=== PATIENT | male | born 1950 | race Caucasian/White ===

== ENCOUNTER → 2020-01-28 | Outpatient (CLI) | payer OTHER ==
--- NOTE | 2020-02-01 06:31 | PE ---
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 TECHNIQUE: Following the intravenous administration of 11.63 mCi of F-18 FDG, whole body images are performed from the skull base to the midthigh. Images are reviewed on the computer in the coronal, a xial, and sagittal planes. Reconstructed rotating images are created on independent workstation and reviewed on the computer. A noncontrast CT is performed in conjunction with the PET scan. Dedicated PET/CT imaging of the neck is performed. SCAN: Subsequent Scan FINDINGS: SKULL BASE AND NECK: Hypermetabolic uptake on prior study at level of the vocal cords with soft tiss ue thickening is now not identified. There has been interval extensive neck surgery with resection of this area and numerous surgical clips submandibular region. Thyroid gland is now surgically absent. Tracheostomy tube now present below this level. No suspicious areas of new or residual abnormal hyper metabolic uptake. CHEST, MEDIASTINUM, AND HILAR REGION: There is however interval development of new large hypermetabol ic right invasive hilar mass axial image 93 measuring roughly 6.1 x 4.2 cm, max SUV is 6.65. There is some postobstructive atelectasis along the periphery. There is adjacent additional hypermetabolic 2.2 x 1.9 cm right paratracheal adenopathy.. There is add itional hypermetabolic right hilar lymph node measuring 2.7 x 2.6 cm axial image 101, max SUV is 4.72 . ABDOMEN AND PELVIS: Some faint multifocal subcentimeter areas of hypermetabolic uptake throughout the liver are suspicious for metastatic disease though CT correlates not clearly identified. For referen ce lateral left hepatic lobe punctate focus max SUV 3.58 on axial image 149. Largest lesion with some central calcifications lateral segment left hepatic lobe axial image 137 is favored benign as is elena tabolic and was present on prior study. Similar subcentimeter benign low dense lesion anterior liver axial image 146 noted. Normal excretion is seen. No additional areas of suspicious hypermetabolic uptake. OSSEOUS STRUCTURES: New Osseous metastatic disease with several new hypermetabolic foci, for referenc e right iliac lesion and left sacral lesion axial image 206 along with lytic focus L5 vertebra axial image 190. There is large hypermetabolic lesion L1 vertebra axial image 151, max SUV is 5.85. Few add itional scattered right rib lesions are felt present. OTHER CT: Coronary artery calcification and/or stents are identified. There is new tiny right pleural effusion. There are several thin-walled cysts scattered throughout both kidneys. There is retroaortic left kita l vein which is normal variant. There is ectatic and mild/moderate calcification in the abdominal aor ta. Sigmoid colonic diverticula. Scattered pelvic phleboliths. IMPRESSION: Successful surgical and radiation treatment of primary laryngeal neoplasm but interval de velopment of metastatic disease in the central right lung with thoracic adenopathy, new osseous metas tatic disease, and suspected new subcentimeter hepatic metastatic disease.
== END | disposition home or self-care (01) ==
LOC: RADPETMAIN 13:03
PROVIDERS: ATTEND Radiology Radiation Oncology
DX: C78.01 Secondary malignant neoplasm of right lung (principal); C79.51 Secondary malignant neoplasm of bone; C32.0 Malignant neoplasm of glottis; R59.0 Localized enlarged lymph nodes; Z92.3 Personal history of irradiation; Z98.890 Other specified postprocedural states
CPT/HCPCS: 78815; A9552

== ENCOUNTER → 2020-02-04 | Outpatient (CLI) | payer OTHER ==
--- NOTE | 2020-02-04 13:05 | MR ---
EXAMINATION TYPE: MR brain wo/w con DATE OF EXAM: 02/04/2020 COMPARISON: None HISTORY: Malignant neoplasm of glottis, head pain TECHNIQUE: Multiplanar, multisequence images of the brain and brainstem is performed without and with IV contras t, utilizing 7.5 mL intravenous Gadavist . FINDINGS: Diffusion weighted images demonstrate no evidence of a recent infarct or other diffusion ab normality. There is moderate generalized degenerative change. Areas of abnormal signal in the white m atter are nonspecific but most typical remote microvascular ischemia. There is a 5 mm nodular change involving the left frontal bone for which a CT scan is recommended. No intraparenchymal areas of enhancement suspicious for metastases. Midline structures demonstrate normal morphology. The craniocervical junction appears within normal limits. Post contrast images demonstrate no abnormal enhancement. The dural venous sinuses appear pa tent. Changes of chronic sinusitis noted. IMPRESSION: 1. No intracranial areas of metastases seen. Degenerative and nonspecific white matter changes most t ypical remote microvascular ischemia. 2. There is a 1 cm area of nodular prominence involving the left frontal bone which be correlated wit h CT of the brain with bone windows for further evaluation. Best noted on postcontrast T1 axial image 49.
== END | disposition home or self-care (01) ==
LOC: RADMRIMAIN 12:06
PROVIDERS: ATTEND Radiology Radiation Oncology
DX: G31.9 Degenerative disease of nervous system, unspecified (principal); G93.89 Other specified disorders of brain; I67.82 Cerebral ischemia; C32.0 Malignant neoplasm of glottis; Z92.3 Personal history of irradiation; Z97.8 Presence of other specified devices
CPT/HCPCS: 70553; A9585

== ENCOUNTER → 2020-05-27 | Outpatient (CLI) | payer OTHER ==
--- NOTE | 2020-05-29 11:53 | PE ---
EXAMINATION TYPE: PET CT fusion skull to thigh DATE OF EXAM: 05/27/2020 COMPARISON: Most recent PET CT January 28, 2020 and older studies. HISTORY: Head and neck cancer diagnosed June 2019 and lung cancer diagnosed January 2020 completed radiation treatment in February and chemotherapy in April. TECHNIQUE: Following the intravenous administration of 9.4 mCi of F-18 FDG, whole body images are pe rformed from the skull base to the midthigh. Images are reviewed on the computer in the coronal, axi al, and sagittal planes. Reconstructed rotating images are created on independent workstation and re viewed on the computer. A localization and attenuation correction CT is performed in conjunction wi th the PET scan. PET/CT imaging of the neck is performed. SCAN: Subsequent Scan FINDINGS: SKULL BASE AND NECK: No new areas of abnormal hypermetabolic uptake. Extensive surgical and post khushi atment change redemonstrated with tracheostomy tube inferiorly again seen. CHEST, MEDIASTINUM, AND HILAR REGION: Marked interval improvement in the hypermetabolic large invasiv e right hilar mass or neoplasm with some residual abnormal soft tissue surrounding right upper lobe b ronchus axial image 85, this area is currently ametabolic. Marked interval improvement in the right peritracheal/tracheobronchial lymph node measuring 1.0 x 0.8 cm current study image 83 versus 2.2 x 1.9 cm prior study. Lymph node currently ametabolic. Hypermet abolic right hilar lymph node on prior study less well seen, no residual hypermetabolic uptake. No new areas of abnormal hypermetabolic uptake. ABDOMEN AND PELVIS: No areas of abnormal hypermetabolic uptake. OSSEOUS STRUCTURES: No new areas of abnormal hypermetabolic uptake. Scattered sclerotic osseous metas tatic lesions redemonstrated greatest in the pelvis with interval progression in size and number of s clerotic lesions noted. OTHER CT: Coronary artery calcification and/or stents are redemonstrated. There are several thin-walled cysts scattered throughout both kidneys. There is retroaortic left kita l vein which is normal variant. There is ectatic and mild/moderate calcification in the abdominal aor ta. Stable low dense lesion lateral aspect left hepatic lobe presumed benign with central thin septat ion and calcification. Sigmoid colonic diverticula. Scattered pelvic phleboliths. IMPRESSION: No areas of abnormal hypermetabolic uptake on current study. Marked interval improvement in right hilar mass or neoplasm and thoracic adenopathy. Interval progression in osseous sclerotic me tastatic disease without abnormal hypermetabolic uptake is noted.
== END | disposition home or self-care (01) ==
LOC: RADPETMAIN 09:32
PROVIDERS: ATTEND Internal Medicine Hematology & Oncology
DX: C79.51 Secondary malignant neoplasm of bone (principal); C34.81 Malignant neoplasm of overlapping sites of right bronchus and lung; Z92.21 Personal history of antineoplastic chemotherapy
CPT/HCPCS: 78815; A9552

== ENCOUNTER 2020-08-18 02:27 | Emergency (ER) | payer OTHER, MEDICARE ==
--- NOTE | 2020-08-18 02:55 | ED ---
SOB HPI - General Chief Complaint: Shortness of Breath Stated Complaint: altered mental status Time Seen by Provider: 08/18/20 02:31 Source: EMS Mode of arrival: EMS Limitations: language barrier - History of Present Illness Initial Comments: This patient is a 70-year-old man brought by ambulance for evaluation after his had found him slumped over at home and had a difficult time arousing him. History from the patient is slightly limited as she is not speaking secondary to tracheostomy. He is able to communicate fairly well through gestures. When I interview him he complains of some shortness of breath which he indicates is mild and also a frontal headache that he indicates is moderate, not worst headache of life. Further history from the patient's does reveal that the patient had slumped over and she was uncertain if he was breathing. When EMS had arrived and they repositioned him he did have an episode of vomiting. He had completed a round of immunotherapy for his cancer on Friday and he had covid vaccination on Friday. MD Complaint: shortness of breath -: minutes(s) Consistency: constant Improves With: nothing Worsens With: nothing Treatments Prior to Arrival: none - Related Data Home Medications Medication Instructions Recorded Confirmed Atenolol [Tenormin] 50 mg PO QAM 02/08/20 02/08/20 Levothyroxine Sodium 125 mcg PO QAM 02/08/20 02/08/20 Multivitamins, Thera [Multivitamin 1 tab PO DAILY 02/08/20 02/08/20 (formulary)] hydroCHLOROthiazide 25 mg PO QAM 02/08/20 02/08/20 diazePAM [Valium] 5 mg PO Q8HR PRN 02/10/20 02/10/20 Allergies Allergy/AdvReac Type Severity Reaction Status Date / Time No Known Allergies Allergy Verified 02/10/20 11:18 Review of Systems ROS Statement: Those systems with pertinent positive or pertinent negative responses have been documented in the HPI. ROS Other: All systems not noted in ROS Statement are negative. Constitutional: Denies: fever, chills Respiratory: Reports: dyspnea. Denies: cough, wheezes, hemoptysis Cardiovascular: Denies: chest pain, palpitations, orthopnea, edema, syncope Gastrointestinal: Denies: abdominal pain, nausea, vomiting Genitourinary: Denies: dysuria, hematuria Musculoskeletal: Denies: back pain Skin: Denies: rash Neurological: Reports: headache. Denies: weakness Past Medical History Past Medical History: Cancer, Hypertension, Thyroid Disorder Additional Past Medical History / Comment(s): CURRENT: PET SCAN SHOWS POSSIBLE METASTATIC LESION IN RIGHT CENTRAL LUNG; PATIENT HAS HAD A COUGH FOR SEVERAL WEEKS. 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 History of Any Multi-Drug Resistant Organisms: None Reported Additional Past Surgical History / Comment(s): AUG 10, 2019 LARYNGECTOMY (TRACH), PARTIAL RESECTION OF NASAL AND THROAT ARE & THYROIDECTOMY @ [facility]. PROSTHETIC USED TO HELP HIM TO TALK. ABLE TO EAT ORALLY. Past Anesthesia/Blood Transfusion Reactions: No Reported Reaction Past Psychological History: No Psychological Hx Reported Smoking Status: Former smoker Past Alcohol Use History: Daily Past Drug Use History: None Reported General Exam Limitations: no limitations General appearance: alert, in no apparent distress Head exam: Present: atraumatic, normocephalic Eye exam: Present: normal appearance, PERRL, EOMI. Absent: scleral icterus, conjunctival injection, nystagmus ENT exam: Present: mucous membranes dry Neck exam: Present: full ROM, other (Tracheostomy). Absent: meningismus Respiratory exam: Present: normal lung sounds bilaterally. Absent: respiratory distress, wheezes, rales, rhonchi, stridor Cardiovascular Exam: Present: regular rate, normal rhythm, normal heart sounds. Absent: systolic murmur, diastolic murmur, rubs, gallop GI/Abdominal exam: Present: soft. Absent: distended, tenderness, guarding, rebound, rigid, mass Extremities exam: Present: normal inspection, normal capillary refill. Absent: pedal edema, calf tenderness Back exam: Present: normal inspection. Absent: CVA tenderness (R), CVA tenderness (L) Neurological exam: Present: alert Skin exam: Present: warm, dry, intact, normal color. Absent: rash Course Vital Signs 08/18/20 05:00 Temperature 97.5 F L Pulse Rate 56 L Respiratory 17 Rate Blood Pressure 119/71 O2 Sat by Pulse 93 L Oximetry Medical Decision Making - Medical Decision Making I did re-evaluate the patient and review the study results. He states that he is feeling well, his headache has resolved and he would like to go home. Given the patient's has metastatic cancer will defer to his wishes and I did refill review the appropriate further care and follow-up as well as return parameters. - Lab Data Result diagrams: 08/18/20 02:53 08/18/20 02:53 Lab Results 08/18/20 08/18/20 08/18/20 Range/Units 02:53 02:53 02:53 WBC 4.7 (3.8-10.6) k/uL RBC 4.73 (4.30-5.90) m/uL Hgb 14.1 (13.0-17.5) gm/dL Hct 42.4 (39.0-53.0) % MCV 89.6 (80.0-100.0) fL MCH 29.7 (25.0-35.0) pg MCHC 33.2 (31.0-37.0) g/dL RDW 14.1 (11.5-15.5) % Plt Count 167 (150-450) k/uL MPV 7.3 Neutrophils % (Manual) 53 % Lymphocytes % (Manual) 30 % Monocytes % (Manual) 14 % Eosinophils % (Manual) 3 % Neutrophils # (Manual) 2.49 (1.3-7.7) k/uL Lymphocytes # (Manual) 1.41 (1.0-4.8) k/uL Monocytes # (Manual) 0.66 (0-1.0) k/uL Eosinophils # (Manual) 0.14 (0-0.7) k/uL Nucleated RBCs 0 (0-0) /100 WBC Manual Slide Review Performed Anisocytosis (manual) Present PT 10.0 (9.0-12.0) sec INR 0.9 (<1.2) APTT 19.5 L (22.0-30.0) sec Sodium 137 (137-145) mmol/L Potassium 3.8 (3.5-5.1) mmol/L Chloride 104 (98-107) mmol/L Carbon Dioxide 20 L (22-30) mmol/L Anion Gap 13 mmol/L BUN 22 H (9-20) mg/dL Creatinine 1.13 (0.66-1.25) mg/dL Est GFR (CKD-EPI)AfAm 75 (>60 ml/min/1.73 sqM) Est GFR (CKD-EPI)NonAf 65 (>60 ml/min/1.73 sqM) Glucose 121 H (74-99) mg/dL Lactic Ac Sepsis Rflx Plasma Lactic Acid Curtis (0.7-2.0) mmol/L Calcium 9.5 (8.4-10.2) mg/dL Magnesium 2.0 (1.6-2.3) mg/dL Total Bilirubin 0.3 (0.2-1.3) mg/dL AST 26 (17-59) U/L ALT 20 (4-49) U/L Alkaline Phosphatase 76 (38-126) U/L Troponin I (0.000-0.034) ng/mL NT-Pro-B Natriuret Pep pg/mL Total Protein 7.1 (6.3-8.2) g/dL Albumin 4.1 (3.5-5.0) g/dL Serum Alcohol 142 mg/dL 08/18/20 08/18/20 08/18/20 Range/Units 02:53 02:53 02:53 WBC (3.8-10.6) k/uL RBC (4.30-5.90) m/uL Hgb (13.0-17.5) gm/dL Hct (39.0-53.0) % MCV (80.0-100.0) fL MCH (25.0-35.0) pg MCHC (31.0-37.0) g/dL RDW (11.5-15.5) % Plt Count (150-450) k/uL MPV Neutrophils % (Manual) % Lymphocytes % (Manual) % Monocytes % (Manual) % Eosinophils % (Manual) % Neutrophils # (Manual) (1.3-7.7) k/uL Lymphocytes # (Manual) (1.0-4.8) k/uL Monocytes # (Manual) (0-1.0) k/uL Eosinophils # (Manual) (0-0.7) k/uL Nucleated RBCs (0-0) /100 WBC Manual Slide Review Anisocytosis (manual) PT (9.0-12.0) sec INR (<1.2) APTT (22.0-30.0) sec Sodium (137-145) mmol/L Potassium (3.5-5.1) mmol/L Chloride (98-107) mmol/L Carbon Dioxide (22-30) mmol/L Anion Gap mmol/L BUN (9-20) mg/dL Creatinine (0.66-1.25) mg/dL Est GFR (CKD-EPI)AfAm (>60 ml/min/1.73 sqM) Est GFR (CKD-EPI)NonAf (>60 ml/min/1.73 sqM) Glucose (74-99) mg/dL Lactic Ac Sepsis Rflx Plasma Lactic Acid Curtis 2.2 H* (0.7-2.0) mmol/L Calcium (8.4-10.2) mg/dL Magnesium (1.6-2.3) mg/dL Total Bilirubin (0.2-1.3) mg/dL AST (17-59) U/L ALT (4-49) U/L Alkaline Phosphatase (38-126) U/L Troponin I <0.012 (0.000-0.034) ng/mL NT-Pro-B Natriuret Pep 142 pg/mL Total Protein (6.3-8.2) g/dL Albumin (3.5-5.0) g/dL Serum Alcohol mg/dL 08/18/20 Range/Units 04:24 WBC (3.8-10.6) k/uL RBC (4.30-5.90) m/uL Hgb (13.0-17.5) gm/dL Hct (39.0-53.0) % MCV (80.0-100.0) fL MCH (25.0-35.0) pg MCHC (31.0-37.0) g/dL RDW (11.5-15.5) % Plt Count (150-450) k/uL MPV Neutrophils % (Manual) % Lymphocytes % (Manual) % Monocytes % (Manual) % Eosinophils % (Manual) % Neutrophils # (Manual) (1.3-7.7) k/uL Lymphocytes # (Manual) (1.0-4.8) k/uL Monocytes # (Manual) (0-1.0) k/uL Eosinophils # (Manual) (0-0.7) k/uL Nucleated RBCs (0-0) /100 WBC Manual Slide Review Anisocytosis (manual) PT (9.0-12.0) sec INR (<1.2) APTT (22.0-30.0) sec Sodium (137-145) mmol/L Potassium (3.5-5.1) mmol/L Chloride (98-107) mmol/L Carbon Dioxide (22-30) mmol/L Anion Gap mmol/L BUN (9-20) mg/dL Creatinine (0.66-1.25) mg/dL Est GFR (CKD-EPI)AfAm (>60 ml/min/1.73 sqM) Est GFR (CKD-EPI)NonAf (>60 ml/min/1.73 sqM) Glucose (74-99) mg/dL Lactic Ac Sepsis Rflx Y Plasma Lactic Acid Curtis (0.7-2.0) mmol/L Calcium (8.4-10.2) mg/dL Magnesium (1.6-2.3) mg/dL Total Bilirubin (0.2-1.3) mg/dL AST (17-59) U/L ALT (4-49) U/L Alkaline Phosphatase (38-126) U/L Troponin I (0.000-0.034) ng/mL NT-Pro-B Natriuret Pep pg/mL Total Protein (6.3-8.2) g/dL Albumin (3.5-5.0) g/dL Serum Alcohol mg/dL - EKG Data -: EKG Interpreted by Mi EKG shows normal: sinus rhythm, axis (Normal), intervals (RI interval 224 ms, consistent with first-degree AV block. QRS duration 100 ms, QTC 425 ms, both normal), QRS complexes (Normal), ST-T waves (Normal) Rate: bradycardia (Rate 52 bpm) Disposition Clinical Impression: Syncope Disposition: HOME SELF-CARE Condition: Good Instructions (If sedation given, give patient instructions): Syncope (ED) Is patient prescribed a controlled substance at d/c from ED?: No Referrals: Donell Mendenhall MD [STAFF PHYSICIAN] - 1-2 days
[2020-08-18 03:07] LABS: HCT 42.4 % (39.0-53.0); HGB 14.1 gm/dL (13.0-17.5); MCH 29.7 pg (25.0-35.0); MCHC 33.2 g/dL (31.0-37.0); MCV 89.6 fL (80.0-100.0); Mean Platelet Volume 7.3; Platelet Count 167 k/uL (150-450); RBC 4.73 m/uL (4.30-5.90); RDW 14.1 % (11.5-15.5); WBC 4.7 k/uL (3.8-10.6)
[2020-08-18 03:26] LABS: Albumin 4.1 g/dL (3.5-5.0); Calcium 9.5 mg/dL (8.4-10.2); Potassium 3.8 mmol/L (3.5-5.1); Total Bilirubin 0.3 mg/dL (0.2-1.3); Total Protein 7.1 g/dL (6.3-8.2)
[2020-08-18] MEDS ORDERED: IBUPROFEN 600 MG TAB PO STA (03:27)
--- NOTE | 2020-08-18 03:28 | XR ---
EXAM: XR Chest, 2 Views CLINICAL HISTORY: ITS.REASON XR Reason: difficulty breathing TECHNIQUE: Frontal and lateral views of the chest. COMPARISON: No relevant prior studies available. FINDINGS: Lungs: Unremarkable. No consolidation. Pleural space: Unremarkable. No pneumothorax. Heart: Unremarkable. No cardiomegaly. Mediastinum: Unremarkable. Bones/joints: Unremarkable. IMPRESSION: No acute pulmonary process.
[2020-08-18] MEDS ORDERED: ACETAMINOPHEN TAB 325 MG TAB PO STA (03:44)
[2020-08-18 04:07] LABS: INR 0.9 (<1.2)
[2020-08-18 04:10] LABS: Partial Thromboplastin Time 19.5 sec (22.0-30.0)
[2020-08-18] MEDS ORDERED: SODIUM CHLORIDE 0.9% 1,000 ML IV ONE (04:24)
[2020-08-18 04:37] LABS: Anisocytosis (M) Present; Eosinophils # (M) 0.14 k/uL (0-0.7); Lymphocytes # (M) 1.41 k/uL (1.0-4.8); Monocytes # (M) 0.66 k/uL (0-1.0); Neutrophils # (M) 2.49 k/uL (1.3-7.7); Neutrophils % (M) 53 %; Nucleated Red Blood Cells 0 /100 WBC (0-0); Total Cells Counted 100
[2020-08-18 07:17] VITALS: BP 124/83; PULSE 58; RESP 20; TEMP 98
== END 2020-08-18 07:19 | disposition home or self-care (01) ==
LOC: EC 02:27
DX: R55 Syncope and collapse (principal); I10 Essential (primary) hypertension; Z87.891 Personal history of nicotine dependence
CPT/HCPCS: 36415; 71046; 80053; 80320; 83605; 83735; 83880; 84484; 85025; 85610; 85730; 93005; 96360; 99285

== ENCOUNTER → 2020-09-01 | Outpatient (CLI) | payer OTHER ==
--- NOTE | 2020-09-01 16:01 | CT ---
EXAMINATION TYPE: CT chest w con DATE OF EXAM: 09/01/2020 COMPARISON: PET CT 05/27/2020 HISTORY: Lung cancer, shortness of breath. CT DLP: 412.8 mGycm, Automated exposure control for dose reduction was used. CONTRAST: Performed injected with 80ml mL of Isovue 300. TECHNIQUE: Axial images were obtained at 5 mm thick sections. Reconstructed images are reviewed on [employer] computer in the coronal plane. FINDINGS: The thyroid is not identified. Tracheostomy tube is present. Dense structure is between the trachea and the esophagus. Right apical thickening is present. Air is some thickening along the major fissure on the right. This appears diminished from the comparison. There is a density within the major fissure measuring 1.5 cm in diameter which is stable in size but appears slightly thinner No enlarged mediastinal or hilar adenopathy is evident. The ascending aorta diameter at the level o f the main pulmonary artery is 3.8 cm. The main pulmonary artery diameter at the bifurcation is 2.[address] sections are obtained through the upper abdomen. Multiple renal cysts are present. Patient complained of shortness of breath while laying down. Patient was evaluated. Patient has high blood pressure, the pressure was initially high came back to more normal levels for the patient. On c lose questioning and then in conjunction with the patient's this shortness of breath is apparent ly is related to the patient's symptoms which prompted the CT examination. There is no itching or dif ficulty breathing after the patient set up patient stated he was feeling better having cleared his tr acheostomy. This does not appear to be related to a reaction to the contrast. Discharge instructions were given to the patient including emergent returned to the hospital with difficulty breathing reocc urred. Patient and patient's understood the instructions. IMPRESSIONS: 1. Stable thickening right upper lobe major fissure and at the right apex. 1. No new lung findings
== END ==
LOC: RADCTMAIN 14:14
PROVIDERS: ATTEND Internal Medicine Hematology & Oncology
DX: C34.91 Malignant neoplasm of unspecified part of right bronchus or lung (principal); J98.4 Other disorders of lung
CPT/HCPCS: 82565; 84520; 71260; 36415; Q9967

== ENCOUNTER → 2020-09-11 | Outpatient (CLI) | payer OTHER ==
--- NOTE | 2020-09-11 22:43 | MR ---
"EXAMINATION TYPE: MR brain wo/w con DATE OF EXAM: 09/11/2020 COMPARISON: MRI brain February 04, 2020 HISTORY: Headaches, history of lung cancer TECHNIQUE: Multiplanar, multisequence images of the brain and brainstem is performed without and with IV contras t, utilizing 8 mL intravenous Gadavist . FINDINGS: Diffusion weighted images demonstrate no evidence of a recent infarct . Persistent mild to moderate ventricular and sulcal prominence. Persistent scattered foci of T2 hyperintensity throughout the white matter bilaterally. Interval development of multiple heterogeneous thick rim-enhancing lesions throughout the brain paren chyma bilaterally. Approximately 30-40 scattered lesions are identified. There is brainstem and poste rior fossa involvement. For reference one of larger lesions measures 2.0 x 1.5 x 1.8 cm axial image 31 and coronal image 45 l eft temporal lobe. For reference there is right mid pontine lesion measuring 1.5 x 1.3 x 1.2 cm axial image 29 and coron al image 53. For reference superficial left parietal lesion measures 2.0 x 1.8 x 2.0 cm axial image 52 and coronal image 78. This lesion shows some adjacent vasogenic edema. The craniocervical junction appears within normal limits. The dural venous sinuses remaining patent. Tiny mucosal thickening inferior maxillary sinuses bilaterally. Globes are intact. IMPRESSION: Interval development of extensive metastatic disease as detailed above. A Yellow level critical message alert has been initiated for Donell Mendenhall MD via the [employer] 36 [id number] | Critical Results System on 09/11/2020 10:40 PM. This message alert has been sent to Donell Mendenhall MD via the preferences provided by the clinician for the receipt of Radiology Critical Findings. [facility] – [place] [id number]."
== END | disposition home or self-care (01) ==
LOC: RADMRIMAIN 16:15
PROVIDERS: ATTEND Internal Medicine Hematology & Oncology
DX: C79.31 Secondary malignant neoplasm of brain (principal); C34.91 Malignant neoplasm of unspecified part of right bronchus or lung
CPT/HCPCS: 70553; A9585

== ENCOUNTER 2020-10-11 10:48 | Inpatient (IN) | payer OTHER, MEDICARE ==
[2020-10-11 11:57] LABS: Anisocytosis Slight; Basophils % (A) 0 %; Eosinophils % (A) 0 %; HCT 44.7 % (39.0-53.0); HGB 14.5 gm/dL (13.0-17.5); Lymphocytes # (A) 0.6 k/uL (1.0-4.8); Lymphocytes % (A) 7 %; MCH 28.7 pg (25.0-35.0); MCHC 32.5 g/dL (31.0-37.0); MCV 88.2 fL (80.0-100.0); Mean Platelet Volume 6.8; Monocytes # (A) 0.3 k/uL (0-1.0); Monocytes % (A) 4 %; Neutrophils # (A) 7.9 k/uL (1.3-7.7); Neutrophils % (A) 88 %; Platelet Count 202 k/uL (150-450); RBC 5.07 m/uL (4.30-5.90); RDW 16.1 % (11.5-15.5); WBC 8.9 k/uL (3.8-10.6)
[2020-10-11 12:07] LABS: ALT 39 U/L (4-49); AST 28 U/L (17-59); African American GFR (CKD) >90 (>60 ml/min/1.73 sqM); Albumin 3.7 g/dL (3.5-5.0); Alkaline Phosphatase 55 U/L (38-126); Anion Gap 8 mmol/L; Blood Urea Nitrogen 28 mg/dL (9-20); Calcium 9.3 mg/dL (8.4-10.2); Carbon Dioxide 22 mmol/L (22-30); Chloride 104 mmol/L (98-107); Glucose 160 mg/dL (74-99); Magnesium 2.1 mg/dL (1.6-2.3); Non-African American GFR(CKD) 88 (>60 ml/min/1.73 sqM); Potassium 4.5 mmol/L (3.5-5.1); Sodium 134 mmol/L (137-145); Total Protein 6.1 g/dL (6.3-8.2)
--- NOTE | 2020-10-11 12:23 | ED ---
General Adult HPI <Rick Fry - Last Filed: 10/11/20 13:00> - General Source: patient Mode of arrival: ambulatory Limitations: no limitations <Luz Guillermo - Last Filed: 10/11/20 18:03> - General Chief complaint: Fall Stated complaint: fall Time Seen by Provider: 10/11/20 11:20 - History of Present Illness Initial comments: Patient is a 70-year-old male, with current history of undergoing treatment for brain cancer, history of lung cancer and laryngeal cancer, does have a trach, presenting for the emergency department for multiple falls over the past week. Patient was seen by his radiology oncology Dr. Chaudhari, today who recommended coming in for brain scan. His last round of radiation treatments were on 09/27/20, the plan was to wait 6 weeks and have a brain scan however they recommended a brain scan today due to frequent falls. Patient states that he feels like he is falling because of weakness in his right leg. He does not feel lightheaded or dizzy. Patient states he has not hit his head. Patient's states that he does have a cane and walker at home but does not use them all the time or sometimes forgets to use them. He has had some mild memory impairment since been no diagnosis of brain cancer. He's had no recent fevers or chills, no cough, no shortness of breath or chest pain. He states the weakness has been there for a while, this is not a new symptom but feels like it is getting worse. He has been able to eat without difficulty, he does not drink a lot of water. He is taking steroids, 8 mg of Decadron secondary to headaches. These have been helping with his headaches. No new medications. There are no further complaints at this time. Upon arrival to the ER, his vital signs are stable. (Luz Guillermo) - Related Data Home Medications Medication Instructions Recorded Confirmed Atenolol [Tenormin] 50 mg PO DAILY 02/08/20 10/11/20 Dexamethasone [Decadron] 8 mg PO DIRECTED 10/11/20 10/11/20 Dicyclomine [Bentyl] 10 mg PO TID 10/11/20 10/11/20 Levothyroxine Sodium 150 mcg PO DAILY 10/11/20 10/11/20 Allergies Allergy/AdvReac Type Severity Reaction Status Date / Time No Known Allergies Allergy Verified 10/11/20 12:10 Review of Systems ROS Other: All systems not noted in ROS Statement are negative. <Rick Fry Kailyn - Last Filed: 10/11/20 13:00> ROS Other: All systems not noted in ROS Statement are negative. <Luz Guillermo - Last Filed: 10/11/20 18:03> ROS Statement: Those systems with pertinent positive or pertinent negative responses have been documented in the HPI. Past Medical History Past Medical History: Cancer, Hypertension, Thyroid Disorder Additional Past Medical History / Comment(s): CURRENT: PET SCAN SHOWS POSSIBLE METASTATIC LESION IN RIGHT CENTRAL LUNG; PATIENT HAS HAD A COUGH FOR SEVERAL WEEKS. 2020, GLOTTIS CANCER (SQUAMOUS CELL). MULTIPLE SKIN CANCERS RIGHT CHEST, LEFT ELBOW, RIGHT ELBOW. History of Any Multi-Drug Resistant Organisms: None Reported Additional Past Surgical History / Comment(s): AUG 10, 2019 LARYNGECTOMY (TRACH), PARTIAL RESECTION OF NASAL AND THROAT ARE & THYROIDECTOMY @ [facility]. PROSTHETIC USED TO HELP HIM TO TALK. ABLE TO EAT ORALLY. Past Anesthesia/Blood Transfusion Reactions: No Reported Reaction Past Psychological History: No Psychological Hx Reported Smoking Status: Former smoker Past Alcohol Use History: Daily Past Drug Use History: None Reported - Past Family History Father Family Medical History: Myocardial Infarction (MO) Additional Family Medical History / Comment(s): Father of a MO at the age of 58yrs. Mother Family Medical History: CVA/TIA Additional Family Medical History / Comment(s): Mother is alive and is 96yrs old. <Luz Guillermo - Last Filed: 10/11/20 18:03> General Exam Limitations: no limitations <Luz Guillermo - Last Filed: 10/11/20 18:03> - General Exam Comments Initial Comments: GENERAL: Patient is well-developed and well-nourished. Patient is nontoxic and in no acute distress. HEAD: Atraumatic, normocephalic. EYES: Pupils equal round and reactive to light, extraocular movements intact, sclera anicteric, conjunctiva are normal. Eyelids were unremarkable. ENT: TMs normal, nares patent, oropharynx clear without exudates. Moist mucous membranes. NECK: Normal range of motion, supple without lymphadenopathy or JVD. Trach present. LUNGS: Unlabored respirations. Breath sounds clear to auscultation bilaterally and equal. No wheezes rales or rhonchi. HEART: Regular rate and rhythm without murmurs, rubs or gallops. ABDOMEN: Soft, nontender, normoactive bowel sounds. No guarding, no rebound. No masses appreciated. : Deferred MUSCULOSKELETAL: Normal extremities with adequate strength and normal range of motion, no pitting or edema. No clubbing or cyanosis. NEUROLOGICAL: Patient is alert and oriented x 3. Motor and sensory are also intact. Cranial nerves II through XII grossly intact. Symmetrical smile. Normal speech. PSYCH: Normal mood, normal affect. SKIN: Warm, Dry, normal turgor, no rashes or lesions noted. (Lzu Guillermo) Course <Rick Fry - Last Filed: 10/11/20 13:00> Vital Signs 10/11/20 10:54 Temperature 98.2 F Pulse Rate 52 L Respiratory 18 Rate Blood Pressure 164/82 O2 Sat by Pulse 97 Oximetry - Reevaluation(s) Reevaluation #1: 10/11/20 13:00 Patient with known metastatic brain cancer status post radiation presenting with frequent falls. I did discuss case with Dr. Chaudhari who is familiar with the patient, and didn't request CT imaging. Patient will likely require rehab for this frequent falls. He did request brain MRI which will be ordered. Patient will be admitted to Dr. Workman who is aware of the patient and both neurology and radiation oncology will be placed on consult. (Rick Fry) Medical Decision Making - Lab Data Result diagrams: 10/11/20 11:34 10/11/20 11:34 <Rick Fry - Last Filed: 10/11/20 13:00> - Lab Data Result diagrams: 10/11/20 11:34 10/11/20 11:34 <Luz Guillermo - Last Filed: 10/11/20 18:03> - Medical Decision Making Patient is a 70-year-old male, currently undergoing treatment for brain cancer with history of long and laryngeal cancer with trach present, presenting for frequent falls over the past week. They were sent in by Dr. Chaudhari for CT of the brain. Last radiation was completed on 09/27/2020. His vital signs are stable upon arrival. Labs are stable. CT of the brain shows numerous lesions, hyperdense, when compared to the previous MRI, this could be an enlargement of a previously noted mass or hemorrhage associated with the known Metastases. The ventricular size appears to be enlarged as well. These findings were discussed with Dr. Chaudhari who wants an order another MRI to compare his most recent one. Patient will be admitted under Dr. Workman, with consults to Dr Chaudhari and neuro. I did order an MRI with and without contrast of the brain. Case discussed with Dr. Fry. (Luz Guillermo) - Lab Data Lab Results 10/11/20 10/11/20 Range/Units 11:34 11:34 WBC 8.9 (3.8-10.6) k/uL RBC 5.07 (4.30-5.90) m/uL Hgb 14.5 (13.0-17.5) gm/dL Hct 44.7 (39.0-53.0) % MCV 88.2 (80.0-100.0) fL MCH 28.7 (25.0-35.0) pg MCHC 32.5 (31.0-37.0) g/dL RDW 16.1 H (11.5-15.5) % Plt Count 202 (150-450) k/uL MPV 6.8 Neutrophils % 88 % Lymphocytes % 7 % Monocytes % 4 % Eosinophils % 0 % Basophils % 0 % Neutrophils # 7.9 H (1.3-7.7) k/uL Lymphocytes # 0.6 L (1.0-4.8) k/uL Monocytes # 0.3 (0-1.0) k/uL Eosinophils # 0.0 (0-0.7) k/uL Basophils # 0.0 (0-0.2) k/uL Anisocytosis Slight Sodium 134 L (137-145) mmol/L Potassium 4.5 (3.5-5.1) mmol/L Chloride 104 (98-107) mmol/L Carbon Dioxide 22 (22-30) mmol/L Anion Gap 8 mmol/L BUN 28 H (9-20) mg/dL Creatinine 0.84 (0.66-1.25) mg/dL Est GFR (CKD-EPI)AfAm >90 (>60 ml/min/1.73 sqM) Est GFR (CKD-EPI)NonAf 88 (>60 ml/min/1.73 sqM) Glucose 160 H (74-99) mg/dL Calcium 9.3 (8.4-10.2) mg/dL Magnesium 2.1 (1.6-2.3) mg/dL Total Bilirubin 1.0 (0.2-1.3) mg/dL AST 28 (17-59) U/L ALT 39 (4-49) U/L Alkaline Phosphatase 55 (38-126) U/L Total Protein 6.1 L (6.3-8.2) g/dL Albumin 3.7 (3.5-5.0) g/dL Disposition <Rick Fry - Last Filed: 10/11/20 13:00> Decision Date: 10/11/20 Decision Time: 13:07 <Luz Guillermo - Last Filed: 10/11/20 18:03> Clinical Impression: Frequent falls, Lower extremity weakness, Brain cancer Disposition: ADMITTED IP TO THIS [facility] Condition: Stable
--- NOTE | 2020-10-11 12:24 | CT ---
EXAMINATION TYPE: CT brain wo con DATE OF EXAM: 10/11/2020 COMPARISON: 09/11/2020 HISTORY: frequent falls, dizziness, weakness CT DLP: 1088.4 mGycm Automated exposure control for dose reduction was used. FINDINGS: There are numerous rounded hyperdensity seen involving the brainstem, cerebellum and cerebrum with th e largest seen involving the left frontal lobe compressing the left frontal horn. Dilation of the susana tricular system is seen. There is no midline shift or mass effect. Faint hyperattenuation involving t he lateral superior left parietal cortex. Intracranial atherosclerotic changes are noted. A left temp oral lesion also noted with additional smaller lesions frontal lobe. Numerous additional lesions are suspected as noted by recent MRI. IMPRESSION: 1. Numerous intracranial lesions the largest seen in the left frontal horn. They appear to be hyperde nse suggestive of either intracranial hemorrhage or hemorrhagic metastases. The largest lesion seen i n the left frontal lobe measuring 2.1 cm and compresses the left frontal horn. On the recent previous MRI measured 1.3 cm. This could represent enlargement of the previously noted metastases or hemorrha ge associated with the known metastases increasing the lesion in size. 2. The ventricular size appears to be enlarged and greater centrally. This could be on the basis of d egenerative change although there is a greater central component. This raises the possibility of a de gree of hydrocephalus.
[2020-10-11] MEDS ORDERED: ACETAMINOPHEN TAB 325 MG TAB PO PRN (13:00)
[2020-10-11] MEDS ORDERED: NALOXONE 0.4 MG/ML 1 ML VIAL IV PRN (13:00)
[2020-10-11] MEDS ORDERED: SODIUM CHLORIDE 0.9% 1,000 ML IV SCH (13:00)
--- NOTE | 2020-10-11 15:30 | P.CNNES ---
History of Present Illness Consult date: 10/11/20 Requesting physician: Luz Guillermo Reason for Consult: frequent falls and brain mets History of Present Illness: This is a 71-year-old gentleman with medical history of lung cancer and laryngeal cancer, with metastasis of the brain who is getting radiation therapy, trach who presented to the emergency department on 10/11/2020 because of multiple falls over the past week. Patient last round of radiation was on . Patient is accompanied with his (Jimmie) who helps out with the history. Per the patient's the patient has been having recurrent falls and she stated the patient has right leg weakness and does not use his cane or walker. The patient did acknowledge that he and he does not use his cane or walker. Per the he would forget to use it and when she tell him to use it he refuses and is stubborn about it. During the episode the patient does not have any jerking of the extremities, denies any episodes of loss of consciousness with these episodes, urinary or bowel incontinence. Patient does not have any history of seizures. It seems that the patient had 2 episodes of f alls yesterday. Patient follows up with Dr. Chaudhari (Radiation Oncology), who recommended that the patient the come to the ED and get imaging of the brain because of his frequent falls. Patient is on Decadron 8 mg daily. He follows- up with an Oncologist (Dr. Hyatt). Per the patient since the patient had brain metastasis she feels his memory has been off. Patient was diagnosed with laryneal cancer in 06/2019, right small cell lung cancer in January 2020 and brain metastasis in 09/13/2019. He is a ex-tobacco user (smoked 1PPD for 30 years and stopped for 30 years). Workup in the hospital consisted of: CT of the head is reported as numerous intracranial lesion largest seen in the left frontal horn. They appeared to be hyper dense suggestive of either intracranial hemorrhage or hemorrhagic metastasis. The largest lesion seen in the left frontal lobe measuring 2.1 cm and that compresses the left frontal horn. On a recent previous MRI measured 1.3 cm. This could represent enla rgement of the previous noted metastasis or hemorrhage associate with known metastasis increasing the lesion in size. The ventricular size appears to be enlarged and greater centrally. This could be on the basis of degenerative change although there is greater central component. This raises the possibility of a degree of hydrocephalus. In the body it is mentioned there is numerous rounded hyper density seen involving the brainstem, cerebellar and the cerebrum with the largest seen involving the frontal compressing the frontal horn. Dilation of the ventricle system is seen that. A left temporal lesion also noted with additional small lesion in the left frontal lobe. Other workup is white blood cells 8.9 was considered normal. Sodium is 134 which is minimally low. At initial serum glucose is 160. Review of Systems Review of system: The 12 point system was reviewed and apparent positive and negative per HPI. Past Medical History Past Medical History: Cancer, Hypertension, Thyroid Disorder Additional Past Medical History / Comment(s): CURRENT: PET SCAN SHOWS POSSIBLE M ETASTATIC LESION IN RIGHT CENTRAL LUNG; PATIENT HAS HAD A COUGH FOR SEVERAL WEEKS. 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 History of Any Multi-Drug Resistant Organisms: None Reported Additional Past Surgical History / Comment(s): AUG 10, 2019 LARYNGECTOMY (TRACH), PARTIAL RESECTION OF NASAL AND THROAT ARE & THYROIDECTOMY @ [facility]. PROSTHETIC USED TO HELP HIM TO TALK. ABLE TO EAT ORALLY. Past Anesthesia/Blood Transfusion Reactions: No Reported Reaction Past Psychological History: No Psychological Hx Reported Smoking Status: Former smoker Past Alcohol Use History: Daily Past Drug Use History: None Reported Medications and Allergies Home Medications Medication Instructions Recorded Confirmed Type Atenolol [Tenormin] 50 mg PO DAILY 02/08/20 10/11/20 History Dexamethasone [Decadron] 8 mg PO DIRECTED 10/11/20 10/11/20 History Dicyclomine [Bentyl] 10 mg PO TID 10/11/20 10/11/20 History Levothyroxine Sodium 150 mcg PO DAILY 10/11/20 10/11/20 History Allergies Allergy/AdvReac Type Severity Reaction Status Date / Time No Known Allergies Allergy Verified 10/11/20 12:10 Physical Examination - Vital Signs Vital Signs: Vital Signs Temp Pulse Resp BP Pulse Ox 10/11/20 10:54 98.2 F 52 L 18 164/82 97 Intake and Output 10/10/20 10/11/20 10/11/20 22:59 06:59 14:59 Other: Weight 77.564 kg GENERAL: The patient is lying in bed and is not in acute distress. HENT: Small scalp lesion over the middle parietal lesion (from fall). CHEST: The heart rate is regular rate rhythm. No murmurs to auscultation. LUNG: Has Trach. Clear to auscultation bilaterally no wheezing noted throughout. Not labored breathing. ABDOMEN/GI: Bowel sounds present in all 4 quadrants. No tenderness to palpation throughout. NEUROLOGICAL: Higher mental function: The patient is awake, alert, oriented to self, place and time. Patient is following commands. Communicated with person he verbal on rare occasional otherwise nods and follows commands appropriately. Cranial nerves: The pupils are round, equal and reactive to light and accommodation. Visual anthony are full to confrontation throughout. Extraocular movement is intact no nystagmus is noted. Facial sensation is normal to touch throughout. The facial strength is normal throughout. Hearing is normal bilaterally to hand rub. Tongue is midline and moved [id number] without any difficulty. Shoulder shrug is normal bilaterally. Motor: Gait: Was leaning towards the right upon walking. The strength is 5-/5 over the right knee extension. Otherwise 5 over 5 throughout. Normal tone and bulk. Cerebellum: Normal finger to nose heel to pascal bilaterally. Sensation: Sensation is normal to touch throughout. Reflexes (right/left): 2+ Plantars are downgoing bilaterally. Results - Laboratory Findings CBC and BMP: 10/11/20 11:34 10/11/20 11:34 Abnormal Lab Findings: Abnormal Labs 10/11/20 10/11/20 11:34 11:34 RDW 16.1 H Neutrophils # 7.9 H Lymphocytes # 0.6 L Sodium 134 L BUN 28 H Glucose 160 H Total Protein 6.1 L Assessment and Plan Assessment: Recurrent falls due to right legs weakness and brainstem lesion causing unsteady gait from multiple brain metastasis Brain metastatsis getting radiation therapy Per CT has hyperdense suggestive of either intrcranial hemorrhage vs hemorrhagic metastasis. Pending MRI Brain. History of small cell lung (diagnosed 01/2020) History of laryngeal cancer (diagnosed 06/2019) Tracheostomy Ex-tobacco use . Plan: * CT of the head is reported as numerous intracranial lesion largest seen in the left frontal horn. They appeared to be hyper dense suggestive of either intracranial hemorrhage or hemorrhagic metastasis. The largest lesion seen in the left frontal lobe measuring 2.1 cm and that compresses the left frontal horn. On a recent previous MRI measured 1.3 cm. This could represent enlargement of the previous noted metastasis or hemorrhage associate with known metastasis increasing the lesion in size. The ventricular size appears to be enlarged and greater centrally. This could be on the basis of degenerative change although there is greater central component. This raises the possibility of a degree of hydrocephalus.In the body it is mentioned there is numerous rounded hyper density seen involving the brainstem, cerebellar and the cerebrum with the largest seen involving the frontal compressing the frontal horn. Dilation of the ventricle system is seen that. A left temporal lesion also noted with additional small lesion in the left frontal lobe. * MRI Brain is ordered by ED team STAT. * I started the patient on Keppra 500mg 1 tab bid (initially wanted him to be on Keppra 750mg because of body weight but he wants to be on 500mg instead) for seizure prophylaxis especially with multiple brain lesion. The patient was notified of side-effects of medication (agitation, irritable, nickerson). Patient will try medication for 1 month and if he has any side-effects then avoid Keppra and start the patient on Vimpat 50mg 1 tab bid. * I consulted physical therapy and occupation therapy. * Dr. kate Chaudhari (Radiation Oncologist is consulted). * Upon discharge the patient needs to follow-up with his Oncologist. * Recommend restarting Decadron 8 mg daily. * Patient does not want inpatient physical therapy and rather home therapy. * Recommend the patient to follow-up with Neurologist as outpatient upon discharge. The plan is discussed with the patient's nurse. Thank you for the consultation. Jaswinder Salcido MD Neuro-Hospitalist Time with Patient: Greater than 30
[2020-10-11] MEDS ORDERED: DICYCLOMINE 10 MG CAP PO PRN (16:43)
--- NOTE | 2020-10-11 17:02 | P.HPIM ---
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 Patient the does use a walker. Patient has been falling recently. Patient also has some forgetfulness. Patient denied any seizures patient had 2 falls yesterday has seen radiation oncologist who sent him to ER and patient. Patient had a CT of the head which showed numerous intracranial lesions apparently these lesions were present in the previous MRI as well the recent previous MRI showed 1.3 cm metastatic lesions and the present computed tomography scan showed 2.1 cm left frontal lobe lesion with possible intralesional hemorrhage. There are also multiple other metastatic lesions in the brainstem cerebellar and cerebral areas. Sodium is bit low. Review of Systems REVIEW OF SYSTEMS: CONSTITUTIONAL: No fever, no malaise, no fatigue. HEENT: No recent visual problems or hearing problems. Denied any sore throat. CARDIOVASCULAR: No chest pain, orthopnea, PND, no palpitations, no syncope. PULMONARY: No shortness of breath, no cough, no hemoptysis. GASTROINTESTINAL: No diarrhea, no nausea, no vomiting, no abdominal pain. NEUROLOGICAL: As mentioned in HPI HEMATOLOGICAL: Denies any bleeding or petechiae. GENITOURINARY: Denies any burning micturition, frequency, or urgency. MUSCULOSKELETAL/RHEUMATOLOGICAL: Denies any joint pain, swelling, or any muscle pain. ENDOCRINE: Denies any polyuria or polydipsia. The rest of the 14-point review of systems is negative. 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 History of Any Multi-Drug Resistant Organisms: None Reported Additional Past Surgical History / Comment(s): Total laryngectomy/thyroidectomy/throat and nasal resection/tracheostomy with prosthetic speaking valve, 02/10/20 bronchoscopy with BAL/brochial brushings and biopsy, colonoscopy. Past Anesthesia/Blood Transfusion Reactions: No Reported Reaction Smoking Status: Former smoker - Past Family History Father Family Medical History: Myocardial Infarction ([place]) Additional Family Medical History / Comment(s): Father of a [place] at the age of 58yrs. Mother Family Medical History: CVA/TIA Additional Family Medical History / Comment(s): Mother is alive and is 96yrs old. Medications and Allergies Home Medications Medication Instructions Recorded Confirmed Type Atenolol [Tenormin] 50 mg PO DAILY 02/08/20 10/11/20 History Dexamethasone [Decadron] 8 mg PO DIRECTED 10/11/20 10/11/20 History Dicyclomine [Bentyl] 10 mg PO TID 10/11/20 10/11/20 History Levothyroxine Sodium 150 mcg PO DAILY 10/11/20 10/11/20 History Allergies Allergy/AdvReac Type Severity Reaction Status Date / Time No Known Allergies Allergy Verified 10/11/20 12:10 Physical Exam Vitals: Vital Signs Temp Pulse Resp BP Pulse Ox 10/11/20 10:54 98.2 F 52 L 18 164/82 97 Intake and Output 10/11/20 10/11/20 10/11/20 06:59 14:59 22:59 Other: Weight 77.564 kg 77.564 kg PHYSICAL EXAMINATION: GENERAL: The patient is alert and oriented x3, not in any acute distress. Well developed, well nourished. HEENT: Pupils are round and equally reacting to light. EOMI. No scleral icterus. No conjunctival pallor. Normocephalic, atraumatic. No pharyngeal erythema. No thyromegaly. CARDIOVASCULAR: S1 and S2 present. No murmurs, rubs, or gallops. PULMONARY: Chest is clear to auscultation, no wheezing or crackles. ABDOMEN: Soft, nontender, nondistended, normoactive bowel sounds. No palpable organomegaly. MUSCULOSKELETAL: No joint swelling or deformity. EXTREMITIES: No cyanosis, clubbing, or pedal edema. NEUROLOGICAL: She may have weakness predominantly in the right side which is probably secondary to the mass lesion in the left frontal lobe. Strength is almost 5/5 but patient leans towards light when he walks SKIN: No rashes. Results CBC & Chem 7: 10/11/20 11:34 04/28/21 11:34 Labs: Abnormal Lab Results - Last 24 Hours (Table) 10/11/20 10/11/20 Range/Units 11:34 11:34 RDW 16.1 H (11.5-15.5) % Neutrophils # 7.9 H (1.3-7.7) k/uL Lymphocytes # 0.6 L (1.0-4.8) k/uL Sodium 134 L (137-145) mmol/L BUN 28 H (9-20) mg/dL Glucose 160 H (74-99) mg/dL Total Protein 6.1 L (6.3-8.2) g/dL Thrombosis Risk Factor Assmnt - Choose All That Apply Any of the Below Risk Factors Present?: Yes Each Factor Represents 1 point: Obesity (BMI >25) Other Risk Factors: Yes Each Risk Factor Represents 2 Points: Age 61-74 years, Malignancy Other congenital or acquired thrombophilia - If yes, enter type in comment: No Thrombosis Risk Factor Assessment Total Risk Factor Score: 5 Thrombosis Risk Factor Assessment Level: High Risk Assessment and Plan Plan: -Recurrent falls and right leg weakness secondary to brainstem lesion and multiple metastatic lesions in the brain from small cell lung cancer. Patient will be started on Decadron neurology evaluated the patient. Oncology will be consulted patient is supposed to undergo immunotherapy for his small cell lung cancer. 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 Patient used to be a smoker in the past. -Hyponatremia: We will obtain urine random sodium urine random creatinine along with serum most molality urine osmolality patient has either hypovolemic hyponatremia or SIADH from small cell lung cancer. -Hypertension -hyperthyroidism -DVT prophylaxis: Will hold off on due to her Lasix for now with concerns of intralesional bleed
[2020-10-11] MEDS: DEXAMETHASONE SOD PHOSPHATE 4 MG/ML 1 ML VIAL IV SCH ×2 (17:16→23:35)
[2020-10-11] MEDS: SODIUM CHLORIDE 0.9% 1,000 ML IV SCH (17:17)
--- NOTE | 2020-10-11 17:26 | MR ---
EXAMINATION TYPE: MR brain wo/w con DATE OF EXAM: 10/11/2020 COMPARISON: 09/11/2020 HISTORY: Frequent falls and history of cancer CONTRAST: Standard multiplanar, multisequence MRI departmental protocol utilizing 7.5 mL intravenous Gadavist g adolinium contrast. There is diffuse cerebral atrophy. There is mild enlargement of the ventricles. There are multiple foci of pathologic enhancement in the brain. There is 2.7 cm mass involving the le ft caudate nucleus. There is 1 cm enhancing mass in the anterior medial left temporal lobe. There is similar 8 mm focus in the medial anterior right temporal lobe close to the [place]. There is some irregular enhancement in the brainstem in the midline chandan and posterior left side of the chandan. These areas measure up to 5 mm. There is 4 mm enhancement in the inferior right temporal lobe. There is ring-enhancing 7 mm focus in the lateral left frontal lobe. There is 4 mm enhancing focus in the medial right frontal lobe near the cerebral falx. There is 5 mm nodular enhancement in the left poste rior temporal lobe. This is near the cortical surface. There is ring enhancing 1 cm lesion in the lef t posterior parietal lobe. There are small ring-enhancing 5 mm lesions in the chandan in the midline and also on the left side. There is normal enhancement of the venous sinuses. There is thinning of the c orpus callosum. There is cerebral cortical atrophy. There is 11 mm enhancing focus at the cortical mcdonald rface of the left cerebellar hemisphere. There is 7 mm ring enhancement in the inferior left cerebell ar hemisphere. IMPRESSION: Numerous enhancing masses throughout the brain which overall are decreased in size compared to previo us exam of 09/11/2020 and consistent with cerebral treatment response. The only lesion that is increas ed in size is in the left caudate nucleus which measures 1.5 cm on previous exam and now measures 2.7 cm. This could be hemorrhagic.
[2020-10-11] MEDS: levETIRAcetam 500 MG TAB PO SCH (17:39)
[2020-10-12] MEDS: levETIRAcetam 500 MG TAB PO SCH ×3 (00:16→23:18)
[2020-10-12] MEDS: LEVOTHYROXINE 75 MCG TAB PO SCH (05:44)
[2020-10-12] MEDS: DEXAMETHASONE SOD PHOSPHATE 4 MG/ML 1 ML VIAL IV SCH ×3 (05:44→17:53)
[2020-10-12] MEDS: SODIUM CHLORIDE 0.9% 1,000 ML IV SCH (05:44)
[2020-10-12 08:10] LABS: HCT 45.3 % (39.0-53.0); MCH 29.6 pg (25.0-35.0); MCHC 33.2 g/dL (31.0-37.0); MCV 89.3 fL (80.0-100.0); Platelet Count 174 k/uL (150-450); RBC 5.08 m/uL (4.30-5.90); RDW 15.7 % (11.5-15.5); WBC 7.7 k/uL (3.8-10.6)
--- NOTE | 2020-10-12 13:37 | P.PN ---
Subjective Progress Note Date: 10/12/20 Patient was seen at bedside and accompanied and she stated the patient had to use the bathroom fast so he walked unassisted and he fell but did not lose consciousness or any trauma to head. Denies of any further weakness, numbness, difficulty getting his words out with swallowing. MRI the brain is reported as numerous enhancing masses throughout the brain which overall are decreased in size compared to the previous exam of 09/11/2020 and consistent with cerebral treatment response. The only lesion that is increased in size is in the left caudate nucleus which measures 1.5 cm on the previous exam and now measures 2.7 cm. This could be hemorrhagic Objective - Vital Signs Vital signs: Vital Signs Temp 97.9 F 10/12/20 07:30 Pulse 50 L 10/12/20 07:30 Resp 16 10/12/20 07:30 BP 165/74 10/12/20 07:30 Pulse Ox 97 10/12/20 07:30 Intake & Output 10/11/20 10/12/20 10/12/20 18:59 06:59 18:59 Intake Total 75 Balance 75 Weight 77.564 kg Intake: Intake, IV Titration 75 Amount Sodium Chloride 0.9% 1, 75 000 ml @ 75 mls/hr IV . [id number] Rx#:[id number] Other: # Voids 3 # Bowel Movements 1 - Exam GENERAL: The patient is lying in bed and is not in acute distress. NEUROLOGICAL: Higher mental function: The patient is awake, alert, oriented to self, place and time. Patient is following commands. Communicated with person he verbal on rare occasional otherwise nods and follows commands appropriately. Cranial nerves: The pupils are round, equal and reactive to light and accommodation. Visual anthony are full to confrontation throughout. Extraocular movement is intact no nystagmus is noted. Facial sensation is normal to touch throughout. The facial strength is normal throughout. Hearing is normal bilaterally to hand rub. Tongue is midline and moved [id number] without any difficulty. Shoulder shrug is normal bilaterally. Motor: Gait: Was leaning towards the right upon walking. The strength is 5-/5 over the right knee extension. Otherwise 5 over 5 throughout. Normal tone and bulk. Cerebellum: Normal finger to nose heel to pascal bilaterally. Sensation: Sensation is normal to touch throughout. Reflexes (right/left): 2+ Plantars are downgoing bilaterally. - Labs CBC & Chem 7: 10/12/20 07:22 10/11/20 11:34 Labs: Abnormal Lab Results - Last 24 Hours (Table) 10/12/20 Range/Units 07:22 RDW 15.7 H (11.5-15.5) % Assessment and Plan Assessment: Recurrent falls due to right legs weakness and brainstem lesion causing unsteady gait from multiple brain metastasis Numerous Hemorrhagic Brain metastatsis getting radiation therapy (decreased in size compared to previous Imaging 09/11/2020 except left caudate nulceus increased from 1.5cm to 2.7cm). Per CT has hyperdense suggestive of either intrcranial hemorrhage vs hemorrhagic metastasis. Pending MRI Brain. History of small cell lung (diagnosed 01/2020) History of laryngeal cancer (diagnosed 06/2019) Tracheostomy Ex-tobacco use Plan: * CT of the head is reported as numerous intracranial lesion largest seen in the left frontal horn. They appeared to be hyper dense suggestive of either intracranial hemorrhage or hemorrhagic metastasis. The largest lesion seen in the left frontal lobe measuring 2.1 cm and that compresses the left frontal horn. On a recent previous MRI measured 1.3 cm. This could represent enlargement of the previous noted metastasis or hemorrhage associate with known metastasis increasing the lesion in size. The ventricular size appears to be enlarged and greater centrally. This could be on the basis of degenerative change although there is greater central component. This raises the possibility of a degree of hydrocephalus.In the body it is mentioned there is numerous rounded hyper density seen involving the brainstem, cerebellar and the cerebrum with the largest seen involving the frontal compressing the fron hailey horn. Dilation of the ventricle system is seen that. A left temporal lesion also noted with additional small lesion in the left frontal lobe. * MRI the brain is reported as numerous enhancing masses throughout the brain which overall are decreased in size compared to the previous exam of 2020 and consistent with cerebral treatment response. The only lesion that is increased in size is in the left caudate nucleus which measures 1.5 cm on the previous exam and now measures 2.7 cm. This could be hemorrhagic. * I ordered a prolonged EEG (2.5 hours) to rule out subclinical seizure. * Continue Keppra 500mg 1 tab bid (initially wanted him to be on Keppra 750mg because of body weight but he wants to be on 500mg instead) for seizure prophylaxis especially with multiple brain lesion. The patient was notified of side-effects of medication (agitation, irritable, nickerson). Patient will try medication for 1 month and if he has any side-effects then avoid Keppra and start the patient on Vimpat 50mg 1 tab bid. * Recommend SBP <140 because of brain metastasis and will defer management to the primary team. * Physical therapy and occupation therapy are consulted. * Dr. kate Chaudhari (Radiation Oncologist is consulted). * Upon discharge the patient needs to follow-up with his Oncologist. * Recommend restarting Decadron 8 mg daily. * Patient does not want inpatient physical therapy and rather home therapy. * Recommend the patient to follow-up with Neurologist and neurosurgeon as outpatient upon discharge within 1-2 weeks The plan is discussed with the patient's and his nurse. Jaswinder Salcido MD Neuro-Hospitalist Time with Patient: Less than 30
--- NOTE | 2020-10-12 13:58 | P.CONS ---
History of Present Illness - Reason for Consult Consult date: 10/12/20 Laryngeal cancer - metastatic Requesting physician: Armin Workman - History of Present Illness Abhinav is being evaluated after diagnosis of squamous cell cancer of Larynx. He presented with dysphona and feeling of a "lump: in L cervical area. He had CT scan of neck and referred to Dr Wright, biopsy of left subglotic mass, as well as, L vocal cord revealed well differentiated squamous cell carcinoma. He was evaluated by Dr Simmons , PET Scan performed at [facility] revealing increased uptake at at L vocal cord, but not subglotic mass. He denied anorexia or weight loss, smoked 1 PPD X 30 years, quit smoking 20 years ago, he consumes 3-4 beers daily, he worked in a [employer] factory. 01/13/20: Had total laryngectomy with bilateral neck disections on 08/10/19 (Dr Simmons) at [facility] : T3 (2.7X1.3X0.7cm Ca) found, margins negative, all LN negative (67) . He was given adjuvant Radtiaon therapy (Dr Chaudhari). When seen today, he is C/O difficulty clearing throught with thick mucus, as well as, bilateral edema in submandibular area. 02/15/20: Had PET Scan : new R hilar mass with mediastinal lymphadenopathy, suspected liver & bone mets > had diagnostic bronchoscopy by Dr Woo on 02/10/20 revealing small cell carcinoma !!. He is C/O fatigue & SOB, no hemoptysis. 03/08/20: Status post cycle one carbo/ [id number]. 03/14/20: Tolerated cycle # 1 of Carboplatinum/Etoposide/Tecentriq Chemotherapy very well > very mild nausea X 1 > developing alopecia 04/27/20: Feels well, tolerating Chemotherapy well (minimal grade I nausea), mild SOB 05/31/20: PET Scan 05/29/20 with response to treatment evenced by marked interval improvement in hilar and thoracic adenopathy, as well as, no areas of abnormal hypermetabolic uptake. Interval progression of osseous disease without abnormal uptake. He will continue on immune therapy. Couple bouts of diarrhea after fast food but improved. 07/14/20: Feels well, tolerating Tecentriq well, last PET Scan: complete metabolic response 09/08/20: Feels well, C/O R sided headaches X 3 weeks, no visual symptoms or loss of balance Last Tecentriq 09/25. He now presents to hospital after fall. Review of Systems All systems: negative Constitutional: Reports as per HPI Past Medical History Past Medical History: Cancer, Hypertension, Thyroid Disorder Additional Past Medical History / Comment(s): CURRENT: PET SCAN SHOWS POSSIBLE METASTATIC LESION IN RIGHT CENTRAL LUNG; PATIENT HAS HAD A COUGH FOR SEVERAL WEEKS. 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 History of Any Multi-Drug Resistant Organisms: None Reported Additional Past Surgical History / Comment(s): AUG 10, 2019 LARYNGECTOMY (TRACH), PARTIAL RESECTION OF NASAL AND THROAT ARE & THYROIDECTOMY @ [facility]. PROSTHETIC USED TO HELP HIM TO TALK. ABLE TO EAT ORALLY. Past Anesthesia/Blood Transfusion Reactions: No Reported Reaction Past Psychological History: No Psychological Hx Reported Smoking Status: Former smoker Past Alcohol Use History: Daily Past Drug Use History: None Reported - Past Family History Father Family Medical History: Myocardial Infarction ([place]) Additional Family Medical History / Comment(s): Father of a [place] at the age of 58yrs. Mother Family Medical History: CVA/TIA Additional Family Medical History / Comment(s): Mother is alive and is 96yrs old. Medications and Allergies Home Medications Medication Instructions Recorded Confirmed Type Atenolol [Tenormin] 50 mg PO DAILY 02/08/20 10/11/20 History Dexamethasone [Decadron] 8 mg PO DIRECTED 10/11/20 10/11/20 History Dicyclomine [Bentyl] 10 mg PO TID 10/11/20 10/11/20 History Levothyroxine Sodium 150 mcg PO DAILY 10/11/20 10/11/20 History Allergies Allergy/AdvReac Type Severity Reaction Status Date / Time No Known Allergies Allergy Verified 10/11/20 12:10 Physical Exam Vitals: Vital Signs Temp Pulse Pulse Resp BP BP BP 10/12/20 07:30 97.9 F 50 L 16 165/74 10/12/20 05:29 97.7 F 54 L 18 155/70 10/11/20 20:00 97.8 F 56 L 18 143/79 10/11/20 14:00 98 F 56 L 17 148/86 10/11/20 10:54 98.2 F 52 L 18 164/82 Pulse Ox 10/12/20 07:30 97 10/12/20 05:29 98 10/11/20 20:00 96 10/11/20 14:00 100 10/11/20 10:54 97 Intake and Output 10/11/20 10/12/20 10/12/20 22:59 06:59 14:59 Intake Total 75 Balance 75 Intake: Intake, IV Titration 75 Amount Sodium Chloride 0.9% 1, 75 000 ml @ 75 mls/hr IV . [id number] [facility] Rx#:[id number] Other: # Voids 3 # Bowel Movements 1 Weight 77.564 kg - Constitutional General appearance: cooperative, no acute distress - EENT Eyes: abnormal pupil ENT: hard of hearing, NA/AT - Neck Neck: normal ROM - Respiratory Respiratory: bilateral: diminished - Cardiovascular Rhythm: regularly irregular - Gastrointestinal General gastrointestinal: normal bowel sounds - Integumentary Integumentary: pale - Neurologic non focal - Musculoskeletal Musculoskeletal: generalized weakness - Psychiatric Psychiatric: appropriate affect Results CBC & Chem 7: 10/12/20 07:22 10/11/20 11:34 Labs: Abnormal Lab Results - Last 24 Hours (Table) 10/11/20 10/11/20 10/12/20 Range/Units 11:34 11:34 07:22 RDW 16.1 H 15.7 H (11.5-15.5) % Neutrophils # 7.9 H (1.3-7.7) k/uL Lymphocytes # 0.6 L (1.0-4.8) k/uL Sodium 134 L (137-145) mmol/L BUN 28 H (9-20) mg/dL Glucose 160 H (74-99) mg/dL Total Protein 6.1 L (6.3-8.2) g/dL Comments: MRI Brain Assessment and Plan (1) Head and neck cancer Current Visit: Yes Status: Acute Code(s): C76.0 - MALIGNANT NEOPLASM OF HEAD, FACE AND NECK SNOMED Code(s): 769269576 (2) Frequent falls Current Visit: Yes Status: Acute Code(s): R29.6 - REPEATED FALLS SNOMED Code(s): 512368054 Plan: Assessment and Recommendations: Metastatic Cancer to brain: - Overall most lesions have decreased however there is one that has active progression with concern of hemorrhagic - Dex and add PPI - XRT consult placed - Neurology is following Physician attest: I have completed full history and physical and agree with above dictation, dictated as a scribe
--- NOTE | 2020-10-12 16:02 | P.PN ---
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 Patient the does use a walker. Patient has been falling recently. Patient also has some forgetfulness. Patient denied any seizures patient had 2 falls yesterday has seen radiation oncologist who sent him to ER and patient. Patient had a CT of the head which showed numerous intracranial lesions apparently these lesions were present in the previous MRI as well the recent previous MRI showed 1.3 cm metastatic lesions and the present computed tomography scan showed 2.1 cm left frontal lobe lesion with possible intralesional hemorrhage. There are also multiple other metastatic lesions in the brainstem cerebellar and cerebral areas. Sodium is bit low. 10/12/2020 Patient is seen in follow-up and per nursing staff was attempting to get out of the chair to go to the bathroom and soiled himself and fell by sliding down onto his butt. Patient denies any head injury or hitting anything and denies any pain at this time. Neurology and oncology following the patient is scheduled to undergo EEG monitoring today. Sodium was 132 yesterday and patient was placed on IV fluids and repeat labs continue to be pending at this time. Review of systems: Constitutional: No reports of fatigue, fever, or chills Cardiovascular: No reports of chest pain or palpitations Respiratory: No reports of shortness of breath or cough GI: No reports of nausea, vomiting, or diarrhea : No reports of dysuria or retention Neurovascular: Reports generalized weakness All medications have been reviewed Objective - Vital Signs Vital signs: Vital Signs Temp 98.2 F 10/12/20 13:07 Pulse 72 10/12/20 13:08 Resp 17 10/12/20 13:08 BP 138/82 10/12/20 13:07 Pulse Ox 95 10/12/20 13:07 Intake & Output 10/11/20 10/12/20 10/12/20 18:59 06:59 18:59 Intake Total 75 Balance 75 Weight 77.564 kg Intake: Intake, IV Titration 75 Amount Sodium Chloride 0.9% 1, 75 000 ml @ 75 mls/hr IV . [id number] [facility] Rx#:[id number] Other: # Voids 3 # Bowel Movements 1 - Exam GENERAL: The patient is alert and oriented x3, not in any acute distress. Well developed, well nourished. HEENT: Pupils are round and equally reacting to light. EOMI. No scleral icterus. No conjunctival pallor. Normocephalic, atraumatic. No pharyngeal erythema. No thyromegaly. CARDIOVASCULAR: S1 and S2 present. No murmurs, rubs, or gallops. PULMONARY: Chest is clear to auscultation, no wheezing or crackles. ABDOMEN: Soft, nontender, nondistended, normoactive bowel sounds. No palpable organomegaly. MUSCULOSKELETAL: No joint swelling or deformity. EXTREMITIES: No cyanosis, clubbing, or pedal edema. NEUROLOGICAL: may have weakness predominantly in the right side which is probably secondary to the mass lesion in the left frontal lobe. Strength is almost 5/5 but patient leans towards right when he walks. Diffusely weak SKIN: No rashes. - Labs CBC & Chem 7: 10/12/20 07:22 10/11/20 11:34 Labs: Abnormal Lab Results - Last 24 Hours (Table) 10/12/20 Range/Units 07:22 RDW 15.7 H (11.5-15.5) % Assessment and Plan Assessment: -Recurrent falls and right leg weakness secondary to brainstem lesion and m ultiple metastatic lesions in the brain from small cell lung cancer. Patient will be started on Decadron neurology following and patient undergoing EEG today. Oncology following patient is supposed to undergo immunotherapy for his small cell lung cancer. 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 Patient used to be a smoker in the past. 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 -Hypertension -hyperthyroidism -DVT prophylaxis: Will hold off on due to concerns of intralesional bleed Plan: Patient had EEG to rule out seizure-like activity and is maintained on Keppra and will continue at this time. Neurology is following. Patient continues to be weak with an unsteady gait and PT/OT following. Oncology also following and a consult to radiation therapy has been placed and pending. Patient being started on dexamethasone. Repeat labs continue to be pending and will await.
[2020-10-12] MEDS: PANTOPRAZOLE 40 MG TABLET PO SCH (17:53)
[2020-10-12 20:27] LABS: African American GFR (CKD) 103.4 (60.0-200.0); Anion Gap 9.6 mmol/L (4.00-12.00); Calcium 8.9 mg/dL (8.7-10.3); Carbon Dioxide 23.4 mmol/L (21.6-31.8); Non-African American GFR(CKD) 89.2 (60.0-200.0); Potassium 4.8 mmol/L (3.5-5.5)
[2020-10-13] MEDS: DEXAMETHASONE SOD PHOSPHATE 4 MG/ML 1 ML VIAL IV SCH ×3 (00:48→13:11)
[2020-10-13] MEDS: SODIUM CHLORIDE 0.9% 1,000 ML IV SCH ×2 (00:49→11:00)
[2020-10-13] MEDS: LEVOTHYROXINE 75 MCG TAB PO SCH (06:08)
[2020-10-13] MEDS: PANTOPRAZOLE 40 MG TABLET PO SCH (08:36)
[2020-10-13] MEDS: levETIRAcetam 500 MG TAB PO SCH (10:36)
--- NOTE | 2020-10-13 11:54 | P.PN ---
Subjective Progress Note Date: 10/13/20 increased lesion in brain, awaiting xrt to eval Objective - Vital Signs Vital signs: Vital Signs Temp 97.8 F 10/13/20 06:59 Pulse 58 L 10/13/20 08:42 Resp 16 10/13/20 08:42 BP 119/69 10/13/20 06:59 Pulse Ox 98 10/13/20 06:59 Intake & Output 10/12/20 10/13/20 10/13/20 18:59 06:59 18:59 Intake Total 900 Balance 900 Intake: Intake, IV Titration 900 Amount Sodium Chloride 0.9% 1, 900 000 ml @ 75 mls/hr IV . [id number] [facility] Rx#:[id number] Other: Voiding Method Toilet Toilet Urinal Urinal # Voids 4 # Bowel Movements 1 - Exam - Constitutional General appearance: cooperative, no acute distress - EENT Eyes: abnormal pupil ENT: hard of hearing, NA/AT - Neck Neck: normal ROM - Respiratory Respiratory: bilateral: diminished - Cardiovascular Rhythm: regularly irregular - Gastrointestinal General gastrointestinal: normal bowel sounds - Integumentary Integumentary: pale - Neurologic non focal - Musculoskeletal Musculoskeletal: generalized weakness - Psychiatric Psychiatric: appropriate affect - Labs CBC & Chem 7: 10/12/20 07:22 10/12/20 07:22 Labs: Abnormal Lab Results - Last 24 Hours (Table) 10/12/20 Range/Units 07:22 BUN 28.0 H (9.0-27.0) mg/dL BUN/Creatinine Ratio 35.00 H (12.00-20.00) Ratio Glucose 160 H (70-110) mg/dL Assessment and Plan (1) Head and neck cancer Status: Acute Code(s): C76.0 - MALIGNANT NEOPLASM OF HEAD, FACE AND NECK SNOMED Code(s): 607815829 (2) Frequent falls Status: Acute Code(s): R29.6 - REPEATED FALLS SNOMED Code(s): 054888704 Plan: Assessment and Recommendations: Metastatic Cancer to brain: - Overall most lesions have decreased however there is one that has active progression with concern of hemorrhagic - Dex and add PPI - XRT consult placed - Neurology is following - Await recommendations from Radiation Oncology Hold chemo until seen and re-evaluated by primary onc Dr. Mendenhall Physician Attest: I have completed full history and physical developed above impression and plan, agree with dictation, dictated as a scribe
[2020-10-13 12:46] VITALS: BP 130/79; PULSE 66; RESP 19; TEMP 97.7
--- NOTE | 2020-10-13 14:56 | P.CONS ---
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 He underwent a course of adjuvant radiation finishing on November 04, 2019. Shortly after his treatment, he was unfortunately diagnosed with extensive small cell lung cancer of the right upper lung. He has undergone chemoimmunotherapy with excellent response. He now presents with brain metastas es and underwent WBRT finishing on 09/27/2020. The patient was reportedly doing well until approximately one week after completing his radiotherapy, when he developed difficulty with lower extremity weakness, falls and headache. At this time, the patient had been weaned down to 4 mg daily on his Decadron. This past Friday, the patient's increase his Decadron to 4 mg twice daily, which resulted in resolution of his headaches. He was evaluated in the clinic on Friday after have been reported that he was having significant difficulty with falls at home. The patient has not been comp liant when family has requested that he use a walker. Considering this progression of his symptoms, he was recommended to be evaluated in the emergency room. The patient was admitted on October 11, 2020. He initially underwent a CT brain and subsequent MRI. This showed significant improvement in nearly all of the previously noted intracranial disease. However, one lesion along the left caudate nucleus had increased in size from 1.5 to 2.7 cm with possible hemorrhagic change. Although not specifically mentioned on the MRI, the patient's CT scan does describe some central hydrocephalus. The patient has not had any difficulty with loss of urinary control. He subsequently has had his steroids increased again to 4 times a day. On examination today (10/13) the patient states he is feeling better. He reports no difficulty with headache or nausea at this time. He had been up walking with physical therapy yesterday, but noted he still felt a little bit wobbly. He has been evaluated by neurology, and they have recommended outpatient neurology and neurosurgical evaluation. Review of Systems Constitutional: Denies chills, Denies fever Eyes: denies blurred vision Ears, nose, mouth and throat: Denies dysphagia Cardiovascular: Denies chest pain Respiratory: Denies cough Gastrointestinal: Denies constipation Genitourinary: Denies incontinence Musculoskeletal: Denies low back pain Integumentary: Denies rash Neurological: Reports balance difficulties, Reports gait dysfunction, Reports memory loss, Denies aphasia, Denies burning pain, Denies confusion, Denies convulsions, Denies double vision, Denies headaches Psychiatric: Denies anxiety, Denies depression Past Medical History Past Medical History: Cancer, Hypertension, Thyroid Disorder Additional Past Medical History / Comment(s): CURRENT: PET SCAN SHOWS POSSIBLE METASTATIC LESION IN RIGHT CENTRAL LUNG; PATIENT HAS HAD A COUGH FOR SEVERAL WEEKS. 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 History of Any Multi-Drug Resistant Organisms: None Reported Additional Past Surgical History / Comment(s): AUG 10, 2019 LARYNGECTOMY (TRACH), PARTIAL RESECTION OF NASAL AND THROAT ARE & THYROIDECTOMY @ [facility]. PROSTHETIC USED TO HELP HIM TO TALK. ABLE TO EAT ORALLY. Past Anesthesia/Blood Transfusion Reactions: No Reported Reaction Past Psychological History: No Psychological Hx Reported Smoking Status: Former smoker Past Alcohol Use History: Daily Past Drug Use History: None Reported - Past Family History Father Family Medical History: Myocardial Infarction (IN) Additional Family Medical History / Comment(s): Father of a IN at the age of 58yrs. Mother Family Medical History: CVA/TIA Additional Family Medical History / Comment(s): Mother is alive and is 96yrs old. Medications and Allergies Home Medications Medication Instructions Recorded Confirmed Type Dicyclomine [Bentyl] 10 mg PO TID 10/11/20 10/11/20 History Levothyroxine Sodium 150 mcg PO DAILY 10/11/20 10/11/20 History Acetaminophen Tab [Tylenol] 650 mg PO Q6HR PRN tab 10/13/20 Rx Dexamethasone [Decadron] 4 mg PO TID #21 tablet 10/13/20 Rx Dexamethasone [Decadron] 4 mg PO TID #60 tab 10/13/20 Rx Pantoprazole [Protonix] 40 mg PO AC-BID 14 Days #28 10/13/20 Rx tablet. levETIRAcetam [Keppra] 500 mg PO BID 30 Days #60 tab 10/13/20 Rx levETIRAcetam [Keppra] 500 mg PO Q12HR 14 Days #28 tab 10/13/20 Rx Allergies Allergy/AdvReac Type Severity Reaction Status Date / Time No Known Allergies Allergy Verified 10/11/20 12:10 Physical Exam Vitals: Vital Signs Temp Pulse Resp BP BP Pulse Ox 10/13/20 12:45 97.7 F 66 19 130/79 96 10/13/20 08:42 58 L 16 10/13/20 06:59 97.8 F 58 L 16 119/69 98 10/13/20 05:00 98.1 F 52 L 16 135/68 96 10/12/20 20:50 98.3 F 59 L 18 169/89 97 10/12/20 20:00 59 L 18 Intake and Output 10/12/20 10/13/20 10/13/20 22:59 06:59 14:59 Intake Total 900 Balance 900 Intake: Intake, IV Titration 900 Amount Sodium Chloride 0.9% 1, 900 000 ml @ 75 mls/hr IV . [id number] [facility] Rx#:[id number] Other: Voiding Method Toilet Toilet Urinal Urinal # Voids 4 # Bowel Movements 1 - Constitutional General appearance: no acute distress - EENT Eyes: EOMI, PERRLA ENT: NA/AT - Neck Neck: no lymphadenopathy - Respiratory Respiratory: bilateral: CTA - Cardiovascular Rhythm: regular - Gastrointestinal General gastrointestinal: no distended, no tenderness - Integumentary Integumentary: no calor - Neurologic Neurologic: CNII-XII intact - Musculoskeletal Musculoskeletal: strength equal bilaterally - Psychiatric Psychiatric: A&O x's 3, appropriate affect Results CBC & Chem 7: 10/12/20 07:22 10/12/20 07:22 Labs: Abnormal Lab Results - Last 24 Hours (Table) 10/12/20 Range/Units 07:22 BUN 28.0 H (9.0-27.0) mg/dL BUN/Creatinine Ratio 35.00 H (12.00-20.00) Ratio Glucose 160 H (70-110) mg/dL CT Scan - head: report reviewed, image reviewed MRI - head: report reviewed, image reviewed Assessment and Plan Assessment: The patient is a 70-year-old male presenting with a 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 He underwent a course of adjuvant radiation finishing on November 04, 2019. Shortly after his treatment, he was unfortunately diagnosed with extensive small cell lung cancer of the right upper lung. He has undergone chemoimmunotherapy with excellent response. He now presents with brain metastases and underwent WBRT finishing on 09/27/2020. He has been hospitalized due to weakness/falls. Plan: 1. Brain metastases: As detailed above, the patient's metastatic disease has responded quite well to radiotherapy. One lesion along the left caudate seemed to enlarge, but this is likely based on hemorrhagic conversion as opposed to disease progression. I will recommend the patient undergo repeat MRI in approximately 6 weeks to reevaluate. I do not feel there is a need for further radiation at this time. Instructions to taper Decadron to 4 mg TID upon discharge and subsequently every 7 days decrease by 1 tablet were given. We will schedule him for outpatient evaluation in 2 weeks. 2. Hydrocephalus: The patient does appear to have hydrocephalus, however I did discuss his case with radiology. They feel that none of the lesions appear to be obstructing outflow. This raises the possibility of NPH. Although the patient is not having all of the typical symptoms of hydrocephalus, this certainly could be contributing to his gait disturbance. Neurosurgical outpatient evaluation is reasonable. Time with Patient: Greater than 30
--- NOTE | 2020-10-13 15:27 | P.DS ---
Providers Date of admission: 10/11/20 12:59 Expected date of discharge: 10/13/20 Attending physician: Armin Workman Consults: 10/11/20 13:02 Consult Physician Urgent Consulting Provider: Jaswinder Salcido Consult Reason/Comments: Frequent falls, current brain cancer Do you want consulting provider notified?: Yes Consult Physician Urgent Consulting Provider: Segundo Chaudhari Consult Reason/Comments: Frequent falls, brain cancer Do you want consulting provider notified?: Already Contacted 10/11/20 16:54 Consult Physician Routine Consulting Provider: Elijah Colon Consult Reason/Comments: metastatic cancer Do you want consulting provider notified?: Yes Primary care physician: [facility] Hospital Course: Final diagnosis -Recurrent falls and right leg weakness secondary to brainstem lesion and multiple metastatic lesions in the brain from small cell lung cancer -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 Patient used to be a smoker in the past. 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 -Hypertension -hyperthyroidism -DVT prophylaxis Discharge disposition Patient is being discharged in a stable condition with guarded prognosis to home. Patient will [facility] with [facility] upon discharge. Patient will continue with home care through the [facility] in the outpatient setting. Patient also instructed to follow-up with radiation oncology, oncology, neurology, and neurosurgery in the outpatient setting. Patient will continue on a long Decadro n taper. Total time taken is greater than 35 minutes. 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 Patient the does use a walker. Patient has been falling recently. Patient also has some forgetfulness. Patient denied any seizures patient had 2 falls yesterday has seen radiation oncologist who sent him to ER and patient. Patient had a CT of the head which showed numerous intracranial lesions apparently these lesions were present in the previous MRI as well the recent previous MRI showed 1.3 cm metastatic lesions and the present computed tomography scan showed 2.1 cm left frontal lobe lesion with possible intralesional hemorrhage. There are also multiple other metastatic lesions in the brainstem cerebellar and cerebral areas. Sodium is bit low. 10/12/2020 Patient is seen in follow-up and per nursing staff was attempting to get out of the chair to go to the bathroom and soiled himself and fell by sliding down onto his butt. Patient denies any head injury or hitting anything and denies any pain at this time. Neurology and oncology following the patient is scheduled to undergo EEG monitoring today. Sodium was 132 yesterday and patient was placed on IV fluids and repeat labs continue to be pending at this time. 10/13/2020 Patient is seen in follow-up with no acute overnight issues. Patient was being followed by radiation oncology along with oncology and neurology and recommending outpatient follow-up with neurology and neurosurgery as soon as possible, radiation oncology in 2-3 weeks as discussed and scheduled and continue with oncology in the outpatient setting. Patient is going home and would benefit from Homecare along with palliative care and referrals and documen tation was placed as patient has to do all this to the [facility] with approval. Patient will be continued on Keppra 500 mg twice daily upon discharge as discussed with neurology and will need close neurology and neurosurgery outpatient follow-up. Currently no reports of chest pain, worsening shortness of breath, or palpitations. Patient is afebrile. No reports of nausea or vomiting and patient is tolerating diet. Patient will be discharged home today. Home care along with palliative care is being arranged through the [facility]. Guarded prognosis. On exam vital signs are stable. Cardio S1, S2 are muffled. Respiratory shows diminished breath sounds at the bases with no wheezing or rhonchi noted. Abdomen is soft and nontender. Nervous system shows no focal deficits. Please refer to medication reconciliation sheet for a list of medications. Patient Condition at Discharge: Fair Plan - Discharge Summary Discharge Rx Participant: No New Discharge Prescriptions: New levETIRAcetam [Keppra] 500 mg PO Q12HR 14 Days #28 tab Pantoprazole [Protonix] 40 mg PO AC-BID 14 Days #28 tablet. Acetaminophen Tab [Tylenol] 650 mg PO Q6HR PRN tab PRN Reason: Mild Pain Or Fever > 100.5 levETIRAcetam [Keppra] 500 mg PO BID 30 Days #60 tab Dexamethasone [Decadron] 4 mg PO TID #21 tablet Continue Dicyclomine [Bentyl] 10 mg PO TID Levothyroxine Sodium 150 mcg PO DAILY Changed Dexamethasone [Decadron] 4 mg PO TID #60 tab Discontinued Atenolol [Tenormin] 50 mg PO DAILY Discharge Medication List Dicyclomine [Bentyl] 10 mg PO TID 10/11/20 [History] Levothyroxine Sodium 150 mcg PO DAILY 10/11/20 [History] Acetaminophen Tab [Tylenol] 650 mg PO Q6HR PRN tab 10/13/20 [Rx] Dexamethasone [Decadron] 4 mg PO TID #21 tablet 10/13/20 [Rx] Dexamethasone [Decadron] 4 mg PO TID #60 tab 10/13/20 [Rx] Pantoprazole [Protonix] 40 mg PO AC-BID 14 Days #28 tablet. 10/13/20 [Rx] levETIRAcetam [Keppra] 500 mg PO BID 30 Days #60 tab 10/13/20 [Rx] levETIRAcetam [Keppra] 500 mg PO Q12HR 14 Days #28 tab 10/13/20 [Rx] Follow up Appointment(s)/Referral(s): Kartik Beard MD [STAFF PHYSICIAN] - 1 Week (Patients having information faxed to Dr. Lovelace office. They will review and be in contact with follow-up appt. ) Cecily Durant MD [REFERRING] - 1 Week (Patients having information faxed to Dr. Camejo office. They will review and be in contact with follow-up appt. ) Segundo Chaudhari MD [STAFF PHYSICIAN] - 10/25/20 11:00 am Donell Mendenhall MD [STAFF PHYSICIAN] - 10/18/20 2:15 pm () [facility] [Primary Care Provider] - 1-2 days Patient Instructions/Handouts: Dexamethasone (By mouth), Pantoprazole (By mouth), Levetiracetam (By mouth), Fall Prevention for Older Adults (DC) Activity/Diet/Wound Care/Special Instructions: Follow-up appts. with Neurology and Neurosurgeon next week per Dr. Salcido(Neuro). Activity Limited until follow-up Continue Decadron with a slow taper Continue with Decadron 4 mg 3 times daily for 1 week, Decadron 3 mg 3 times daily for 1 week, Decadron 2 mg 3 times daily for 1 week Continue with Keppra 500 mg twice daily Continue current [facility] will be in touch with you to set up any additional services that may be needed. Discharge Disposition: HOME WITH HOME HEALTH SERVICES
--- NOTE | 2020-10-13 15:43 | P.PN ---
Subjective Progress Note Date: 10/13/20 Patient was seen at bedside and he stated that he is doing fairly well. Denies any worsening of his condition. Objective - Vital Signs Vital signs: Vital Signs Temp 97.7 F 10/13/20 12:45 Pulse 66 10/13/20 12:45 Resp 19 10/13/20 12:45 BP 130/79 10/13/20 12:45 Pulse Ox 96 10/13/20 12:45 Intake & Output 10/12/20 10/13/20 10/13/20 18:59 06:59 18:59 Intake Total 900 Balance 900 Intake: Intake, IV Titration 900 Amount Sodium Chloride 0.9% 1, 900 000 ml @ 75 mls/hr IV . [id number] [facility] Rx#:[id number] Other: Voiding Method Toilet Toilet Urinal Urinal # Voids 4 # Bowel Movements 1 - Exam GENERAL: The patient is lying in bed and is not in acute distress. NEUROLOGICAL: Higher mental function: The patient is awake, alert, oriented to self, place and time. Patient is following commands. Communicated with person he verbal on rare occasional otherwise nods and follows commands appropriately. Cranial nerves: The pupils are round, equal and reactive to light and accommodation. Visual anthony are full to confrontation throughout. Extraocular movement is intact no nystagmus is noted. Facial sensation is normal to touch throughout. The facial strength is normal throughout. Hearing is normal bilaterally to hand rub. Tongue is midline and moved [id number] without any difficulty. Shoulder shrug is normal bilaterally. Motor: Gait: was deferred. The strength is 5-/5 over the right knee extension. Otherwise 5 over 5 throughout. Normal tone and bulk. Cerebellum: Normal finger to nose heel to pascal bilaterally. Sensation: Sensation is normal to touch throughout. Reflexes (right/left): 2+ Plantars are downgoing bilaterally. 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 Per CT has hyperdense suggestive of either intrcranial hemorrhage vs hemorrhagic metastasis. Pending MRI Brain. History of small cell lung (diagnosed 01/2020) History of laryngeal cancer (diagnosed 06/2019) Tracheostomy Ex-tobacco use Plan: * CT of the head is reported as numerous intracranial lesion largest seen in the left frontal horn. They appeared to be hyper dense suggestive of either intracranial hemorrhage or hemorrhagic metastasis. The largest lesion seen in the left frontal lobe measuring 2.1 cm and that compresses the left frontal horn. On a recent previous MRI measured 1.3 cm. This could represent enlargement of the previous noted metastasis or hemorrhage associate with known metastasis increasing the lesion in size. The ventricular size appears to be enlarged and greater centrally. This could be on the basis of degenerative change although there is greater central component. This raises the possibility of a degree of hydrocephalus.In the body it is mentioned there is numerous rounded hyper density seen involving the brainstem, cerebellar and the cerebrum with the largest seen involving the frontal compressing the frontal horn. Dilation of the ventricle system is seen that. A left temporal lesion also noted with additional small lesion in the left frontal lobe. * MRI the brain is reported as numerous enhancing masses throughout the brain which overall are decreased in size compared to the previous exam of 09/11/2020 and consistent with cerebral treatment response. The only lesion that is increased in size is in the left caudate nucleus which measures 1.5 cm on the previous exam and now measures 2.7 cm. This could be hemorrhagic. * Patient had a prolonged routine (2.5 hours) on 10/12/2020 and I was notified by the Dr. Aleman (Epilepsy attending that read EEG) that preliminary report is mild to moderate encephalopathy. There were no epileptiform discharges or seizure on the EEG. Pending official report. * Patient is on Keppra 500mg 1 tab bid for seizure prophylaxis especially with multiple brain lesion. But the patient does not want to be on anti-epileptic drugs. Patient will try medication for 1 month and if he has any side- effects then avoid Keppra * Recommend SBP <140 because of brain metastasis and will defer management to the primary team. * Physical therapy and occupation therapy are consulted. * Dr. Segundo Chaudhari (Radiation Oncologist is consulted). * Upon discharge the patient needs to follow-up with his Oncologist. * On Decadron 4 mg Q4 hour * Patient does not want inpatient physical therapy and rather home therapy. * Recommend the patient to follow-up with Neurologist and neurosurgeon as outpatient upon discharge within 1-2 weeks. The stated she is working on him seeing a neurologist and neurosurgeon. There is no further neurological work-up. The plan is discussed with the patient's and his nurse. Jaswinder Salcido MD Neuro-Hospitalist Time with Patient: Less than 30
--- NOTE | 2020-10-13 16:41 | EEG ---
ELECTROENCEPHALOGRAM REPORT PROCEDURE DATE: 10/12/2020 ELECTROENCEPHALOGRAM (EEG) REPORT: TECHNIQUE: This is a report from a continuous 2-1/2 hour 18-channel digital video EEG performed using the 10/20 international electrode placement system. HISTORY: Lung cancer, brain metastasis. CURRENT MEDICATIONS: Unknown. FINDINGS: Recording start time: 10/12/2020 at 2:24 p.m. Recording end time: 10/12/2020 at 5:19 p.m. EVENTS: During this 2-1/2 hour prolonged video EEG, no clinical or electrographic seizures were recorded. BACKGROUND: The background activity consisted of unsustained 7 to 8 hertz rhythmic waveforms with symmetric theta range slowing. ACTIVATION: Hyperventilation: Not performed. Photic stimulation: No driving seen. Sleep: Stages I and II sleep noted. ABNORMALITIES: 1. Occasional frontally predominant delta range slowing was seen. 2. Intermittent diffuse 4-6 hertz theta range slowing was seen. IMPRESSION: Abnormal 2-1/2 hour prolonged digital video EEG. No clinical or electrographic seizures were recorded. No epileptiform activity was present. The frontally predominant delta range slowing mentioned above is not epileptiform in nature. The diffuse theta range slowing mentioned above is not epileptiform in nature. In combination, these findings indicate mild to moderate diffuse cerebral dysfunction as may be seen in a toxometabolic encephalopathy. No seizures were recorded. No epileptiform activity was present. MMODL / IJN: [id number] /
== END 2020-10-13 15:44 | disposition home health service (06) | DRG 55 ==
LOC: EC 10:48 → 5NMEDONC 12:59
PROVIDERS: ADMIT Internal Medicine; ATTEND Internal Medicine
DX: C79.31 Secondary malignant neoplasm of brain (principal); E87.1 Hypo-osmolality and hyponatremia; C34.90 Malignant neoplasm of unspecified part of unspecified bronchus or lung; R29.6 Repeated falls; Z85.21 Personal history of malignant neoplasm of larynx; I10 Essential (primary) hypertension; C32.9 Malignant neoplasm of larynx, unspecified; E89.0 Postprocedural hypothyroidism; Z51.5 Encounter for palliative care; Z79.890 Hormone replacement therapy; Z79.899 Other long term (current) drug therapy; Z82.49 Family history of ischemic heart disease and other diseases of the circulatory system; Z85.118 Personal history of other malignant neoplasm of bronchus and lung; Z87.891 Personal history of nicotine dependence; Z20.822 Contact with and (suspected) exposure to COVID-19
CPT/HCPCS: 36415; 70450; 70553; 80048; 80053; 83735; 85025; 85027; 87636; 95713; 99285

== ENCOUNTER 2020-10-23 10:24 | Inpatient (IN) | payer OTHER, MEDICARE ==
--- NOTE | 2020-10-23 11:02 | ED ---
General Adult HPI - General Chief complaint: Altered Mental Status Stated complaint: confusion, weakness Time Seen by Provider: 10/23/20 10:29 Source: patient, RN notes reviewed Mode of arrival: ambulatory Limitations: no limitations - History of Present Illness Initial comments: Patient is a pleasant 70-year-old male presenting to the emergency Department with weakness. Progressed over the past few days. Patient does have metastatic brain cancer with history of primary lung and laryngeal cancer. Patient finished radiation therapy several weeks ago. Patient did have some right leg weakness and difficulty walking. Patient has had some urinary incontinence. Symptoms have been waxing and waning. Patient does have some mild headaches. Patient is having memory problems which is somewhat chronic. Patient does have history of several brain lesions, most are improving however one is worsening and did have some bleeding previously. Family provides majority of history. - Related Data Home Medications Medication Instructions Recorded Confirmed Levothyroxine Sodium 150 mcg PO DAILY 10/11/20 10/23/20 Atenolol [Tenormin] 50 mg PO DAILY 10/23/20 10/23/20 Dexamethasone [Decadron] 8 mg PO DAILY 10/23/20 10/23/20 Nystatin 100,000 Unit/ml Susp 500,000 unit PO QID 10/23/20 10/23/20 [Mycostatin Oral Susp] Previous Rx's Medication Instructions Recorded Acetaminophen Tab [Tylenol] 650 mg PO Q6HR PRN tab 10/13/20 Pantoprazole [Protonix] 40 mg PO AC-BID 14 Days #28 10/13/20 tablet. Allergies Allergy/AdvReac Type Severity Reaction Status Date / Time No Known Allergies Allergy Verified 10/23/20 11:59 Review of Systems ROS Statement: Those systems with pertinent positive or pertinent negative responses have been documented in the HPI. ROS Other: All systems not noted in ROS Statement are negative. Constitutional: Denies: fever Eyes: Denies: eye pain ENT: Denies: ear pain Respiratory: Denies: cough Cardiovascular: Denies: chest pain Endocrine: Denies: fatigue Gastrointestinal: Denies: abdominal pain Genitourinary: Denies: dysuria Musculoskeletal: Denies: back pain Neurological: Reports: as per HPI, headache, weakness, confusion Past Medical History Past Medical History: Cancer, Hypertension, Thyroid Disorder Additional Past Medical History / Comment(s): CURRENT: PET SCAN SHOWS POSSIBLE METASTATIC LESION IN RIGHT CENTRAL LUNG; PATIENT HAS HAD A COUGH FOR SEVERAL WEEKS. 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 History of Any Multi-Drug Resistant Organisms: None Reported Additional Past Surgical History / Comment(s): AUG 10, 2019 LARYNGECTOMY (TRACH), PARTIAL RESECTION OF NASAL AND THROAT ARE & THYROIDECTOMY @ [facility]. PROSTHETIC USED TO HELP HIM TO TALK. ABLE TO EAT ORALLY. Past Anesthesia/Blood Transfusion Reactions: No Reported Reaction Past Psychological History: No Psychological Hx Reported Smoking Status: Former smoker Past Alcohol Use History: Daily Past Drug Use History: None Reported - Past Family History Father Family Medical History: Myocardial Infarction (RI) Additional Family Medical History / Comment(s): Father of a RI at the age of 58yrs. Mother Family Medical History: CVA/TIA Additional Family Medical History / Comment(s): Mother is alive and is 96yrs old. General Exam Limitations: no limitations General appearance: alert, in no apparent distress Head exam: Present: atraumatic Eye exam: Present: normal appearance, PERRL, EOMI ENT exam: Present: other (Tracheostomy) Neck exam: Present: normal inspection Respiratory exam: Present: normal lung sounds bilaterally Cardiovascular Exam: Present: regular rate, normal rhythm GI/Abdominal exam: Present: soft. Absent: tenderness Extremities exam: Present: normal inspection Neurological exam: Present: alert Expanded Neurological exam: Present: protecting the airway Cranial nerves: EOM's Intact: Normal, Facial Sensation: Normal Sensory exam: Upper Extremity Light Touch: Normal, Lower Extremity Light Touch: Normal Motor strength exam: RUE: 5, LUE: 5, RLE: 4 (Family states chronic), LLE: 5 Psychiatric exam: Present: normal affect, normal mood Skin exam: Present: normal color Course Vital Signs 10/23/20 10:25 Temperature 97.8 F Pulse Rate 86 Respiratory 18 Rate Blood Pressure 134/87 O2 Sat by Pulse 94 L Oximetry EKG Findings - EKG Comments: EKG Findings:: Normal sinus rhythm with a rate of 66. MS 192. QRS 100. QT 4:30. QTC 49. Normal axis. Normal QRS. T wave inversion V1 through V6 as well as aVL. Medical Decision Making - Medical Decision Making Patient reevaluated and resting comfortably in bed, unchanged. Patient and family updated on results and plan. Case was discussed twice with Dr. Chaudhari who would like patient to be held overnight for glucose control. He will consult. Case was also discussed with Dr. Smith, who will admit covering [facility] this [facility]. - Lab Data Result diagrams: 10/23/20 11:05 10/23/20 11:05 Lab Results 10/23/20 10/23/20 10/23/20 Range/Units 11:05 11:05 11:05 WBC 9.9 (3.8-10.6) k/uL RBC 4.93 (4.30-5.90) m/uL Hgb 14.3 (13.0-17.5) gm/dL Hct 43.5 (39.0-53.0) % MCV 88.2 (80.0-100.0) fL MCH 29.0 (25.0-35.0) pg MCHC 32.9 (31.0-37.0) g/dL RDW 16.4 H (11.5-15.5) % Plt Count 145 L (150-450) k/uL MPV 7.6 Neutrophils % 94 % Lymphocytes % 4 % Monocytes % 2 % Eosinophils % 0 % Basophils % 0 % Neutrophils # 9.3 H (1.3-7.7) k/uL Lymphocytes # 0.4 L (1.0-4.8) k/uL Monocytes # 0.2 (0-1.0) k/uL Eosinophils # 0.0 (0-0.7) k/uL Basophils # 0.0 (0-0.2) k/uL Anisocytosis Slight PT 9.4 (9.0-12.0) sec INR 0.9 (<1.2) APTT 20.0 L (22.0-30.0) sec Sodium 135 L (137-145) mmol/L Potassium 4.8 (3.5-5.1) mmol/L Chloride 104 (98-107) mmol/L Carbon Dioxide 22 (22-30) mmol/L Anion Gap 9 mmol/L BUN 29 H (9-20) mg/dL Creatinine 0.78 (0.66-1.25) mg/dL Est GFR (CKD-EPI)AfAm >90 (>60 ml/min/1.73 sqM) Est GFR (CKD-EPI)NonAf >90 (>60 ml/min/1.73 sqM) Glucose 400 H (74-99) mg/dL Calcium 8.9 (8.4-10.2) mg/dL Total Bilirubin 0.8 (0.2-1.3) mg/dL AST 29 (17-59) U/L ALT 55 H (4-49) U/L Alkaline Phosphatase 67 (38-126) U/L Troponin I (0.000-0.034) ng/mL Total Protein 5.6 L (6.3-8.2) g/dL Albumin 3.2 L (3.5-5.0) g/dL 10/23/20 Range/Units 11:05 WBC (3.8-10.6) k/uL RBC (4.30-5.90) m/uL Hgb (13.0-17.5) gm/dL Hct (39.0-53.0) % MCV (80.0-100.0) fL MCH (25.0-35.0) pg MCHC (31.0-37.0) g/dL RDW (11.5-15.5) % Plt Count (150-450) k/uL MPV Neutrophils % % Lymphocytes % % Monocytes % % Eosinophils % % Basophils % % Neutrophils # (1.3-7.7) k/uL Lymphocytes # (1.0-4.8) k/uL Monocytes # (0-1.0) k/uL Eosinophils # (0-0.7) k/uL Basophils # (0-0.2) k/uL Anisocytosis PT (9.0-12.0) sec INR (<1.2) APTT (22.0-30.0) sec Sodium (137-145) mmol/L Potassium (3.5-5.1) mmol/L Chloride (98-107) mmol/L Carbon Dioxide (22-30) mmol/L Anion Gap mmol/L BUN (9-20) mg/dL Creatinine (0.66-1.25) mg/dL Est GFR (CKD-EPI)AfAm (>60 ml/min/1.73 sqM) Est GFR (CKD-EPI)NonAf (>60 ml/min/1.73 sqM) Glucose (74-99) mg/dL Calcium (8.4-10.2) mg/dL Total Bilirubin (0.2-1.3) mg/dL AST (17-59) U/L ALT (4-49) U/L Alkaline Phosphatase (38-126) U/L Troponin I 0.064 H* (0.000-0.034) ng/mL Total Protein (6.3-8.2) g/dL Albumin (3.5-5.0) g/dL - Radiology Data Radiology results: report reviewed (Computed tomography scan of the brain does show multiple rounded foci of hyperdensity that is less hyperdense. No new lesions or hemorrhage appreciated. Persistent moderate hydronephrosis.), image reviewed (Chest x-ray shows no acute process) Disposition Clinical Impression: Hyperglycemia, Weakness Disposition: ADMITTED IP TO THIS HOSP Is patient prescribed a controlled substance at d/c from ED?: No Referrals: [facility]inic [Primary Care Provider] - 1-2 days Decision Time: 12:31
[2020-10-23 11:18] LABS: Anisocytosis Slight; Basophils % (A) 0 %; Eosinophils % (A) 0 %; HCT 43.5 % (39.0-53.0); HGB 14.3 gm/dL (13.0-17.5); Lymphocytes # (A) 0.4 k/uL (1.0-4.8); Lymphocytes % (A) 4 %; MCHC 32.9 g/dL (31.0-37.0); MCV 88.2 fL (80.0-100.0); Mean Platelet Volume 7.6; Monocytes # (A) 0.2 k/uL (0-1.0); Monocytes % (A) 2 %; Neutrophils # (A) 9.3 k/uL (1.3-7.7); Neutrophils % (A) 94 %; Platelet Count 145 k/uL (150-450); RBC 4.93 m/uL (4.30-5.90); RDW 16.4 % (11.5-15.5); WBC 9.9 k/uL (3.8-10.6)
[2020-10-23 11:33] LABS: ALT 55 U/L (4-49); AST 29 U/L (17-59); African American GFR (CKD) >90 (>60 ml/min/1.73 sqM); Albumin 3.2 g/dL (3.5-5.0); Alkaline Phosphatase 67 U/L (38-126); Anion Gap 9 mmol/L; Blood Urea Nitrogen 29 mg/dL (9-20); Calcium 8.9 mg/dL (8.4-10.2); Carbon Dioxide 22 mmol/L (22-30); Chloride 104 mmol/L (98-107); Glucose 400 mg/dL (74-99); Non-African American GFR(CKD) >90 (>60 ml/min/1.73 sqM); Potassium 4.8 mmol/L (3.5-5.1); Sodium 135 mmol/L (137-145); Total Bilirubin 0.8 mg/dL (0.2-1.3); Total Protein 5.6 g/dL (6.3-8.2)
--- NOTE | 2020-10-23 11:37 | CT ---
EXAMINATION TYPE: CT brain wo con DATE OF EXAM: 10/23/2020 COMPARISON: 10/11/2020 HISTORY: Weakness, confusion CT DLP: 1147.[address] of the brain was performed. The ventricles, basal cisterns and sulci overlying the cerebral convexities demonstrate moderate enla rgement. Again noted are multiple foci of increased density within the brain stem measuring 8 mm, left tempora l lobe 1.2 x 7 cm, the largest within the left frontal region measuring approximately 2 cm as well as smaller lesions within the high left parietal and frontal regions. The degree of hyperdensity has di minished in the interval suggesting improved areas of hemorrhage and/or improving hemorrhagic metasta ses. There is decreased attenuation about the periventricular white matter and deep white matter of both c erebral hemispheres, compatible with chronic small vessel ischemia. Differential diagnosis does inclu de demyelination. No midline shift. Several calvarial lesions are noted. If symptoms persist consider MRI. IMPRESSION: 1. Again noted are multiple rounded foci of hyperdensity which appear to be less hyperdense than on p rior study suggesting improving areas of focal hemorrhage and/or improving hemorrhagic metastases. No new lesions or new areas of hemorrhage appreciated. No midline shift. 2. Persistent moderate hydrocephalus.
--- NOTE | 2020-10-23 11:44 | XR ---
EXAMINATION TYPE: XR chest 2V DATE OF EXAM: 10/23/2020 COMPARISON: 08/18/2020 HISTORY: Shortness of breath TECHNIQUE: Frontal and lateral views of the chest are obtained. FINDINGS: Scattered senescent parenchymal changes noted. Hyperinflation compatible with COPD. No evidence for infiltrate. No evidence for atelectasis. Heart size is stable. Mediastinal structures are stable and grossly unremarkable. No evidence for hilar prominence. Degenerative changes dorsal spine. IMPRESSION: 1. No evidence for acute pulmonary disease.
[2020-10-23 11:49] LABS: INR 0.9 (<1.2); Prothrombin Time 9.4 sec (9.0-12.0)
[2020-10-23] MEDS ORDERED: NALOXONE 0.4 MG/ML 1 ML VIAL IV PRN (12:36)
[2020-10-23] MEDS ORDERED: SODIUM CHLORIDE 0.9% 1,000 ML IV SCH (12:45)
[2020-10-23 13:08] LABS: Glucose,Whole Blood 511 mg/dL (75-99)
[2020-10-23] MEDS ORDERED: INSULIN ASPART (NovoLOG) 100 UNIT/ML VIAL SQ STA (13:09)
[2020-10-23 13:27] LABS: Appearance,Urine Clear (Clear); Bilirubin,Urine Negative (Negative); Blood,Urine Negative (Negative); Color,Urine Light Yellow; Glucose,Urine (UA) 4+ (Negative); Ketones,Urine Negative (Negative); Leukocyte Esterase,Urine Negative (Negative); Nitrite,Urine Negative (Negative); Protein,Urine Trace (Negative); Specific Gravity,Urine 1.034 (1.001-1.035); Urobilinogen,Urine <2.0 mg/dL (<2.0)
[2020-10-23] MEDS ORDERED: ACETAMINOPHEN TAB 325 MG TAB PO STA (14:04)
[2020-10-23] MEDS ORDERED: ALPRAZolam 0.25 MG TAB PO STA (14:04)
[2020-10-23 16:15] LABS: Glucose,Whole Blood 401 mg/dL (75-99)
[2020-10-23] MEDS: INSULIN ASPART (NovoLOG) 100 UNIT/ML VIAL SQ SCH ×2 (16:41→21:25)
[2020-10-23 17:44] LABS: Glucose,Whole Blood 301 mg/dL (75-99)
[2020-10-23] MEDS ORDERED: ACETAMINOPHEN TAB 325 MG TAB PO PRN (18:12)
[2020-10-23] MEDS ORDERED: HYDROcodone/APAP 5-325MG 1 EACH TAB PO PRN (18:14)
--- NOTE | 2020-10-23 19:18 | HP ---
HISTORY AND PHYSICAL DATE OF SERVICE: 10/23/2020 CHIEF COMPLAINTS: Weakness and fall and change in mental status. 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 Mendenhall and Dr. Chaudhari. The patient was recently admitted with falls and weakness. Currently the patient has also finished radiation therapy and the patient also had MRI workup recently, but the family has noticed that the patient is becoming progressively weak and falling and also has some change in mental status. The patient also had a tracheostomy. After admission the blood sugar was found to be elevated up to 511, and the patient is admitted for further evaluation and treatment. There is no history of any fever, rigor or chills. No history of any headache, loss of consciousness, seizures at this time. The most recent CT scan of the brain, which was reviewed personally by me, showed evidence of multiple rounded foci of hyperdensity suggestive of improving of the focal hemorrhage and improving of the herniating metastasis. There is no history of any trauma at this time. PAST MEDICAL HISTORY: History of lung cancer with metastasis to brain, hypertension, hypothyroidism. HOME MEDICATIONS: Reviewed. They include atenolol, Protonix, nystatin, levothyroxine, Decadron and Tylenol. ALLERGIES: NONE. FAMILY HISTORY: History of myocardial infarction in the family. SOCIAL HISTORY: smoking. No history of alcohol. REVIEW OF SYSTEMS: Review of systems could not be taken at this time because of change in mental status. PHYSICAL EXAMINATION: Patient is conscious. The pulse is 59, blood pressure 127/92, respirations 16, temperature normal, pulse ox 94% on room air. HEENT: Conjunctivae normal. NECK: No jugular venous distention. Tracheostomy. CARDIOVASCULAR SYSTEM: S1, S2 muffled. RESPIRATORY SYSTEM: Breath sounds diminished at the bases. A few scattered rhonchi. ABDOMEN: Soft, non-tender. LEGS: No edema. No swelling. NERVOUS SYSTEM: Higher functions as mentioned earlier. Moves all 4 limbs. Otherwise, diffusely weak. LYMPHATICS: No lymph node palpable in neck, axillae or groin. NAUSEA SKIN: No ulcer, rash, bleeding. JOINTS: No active deforming arthropathy. LABS: Labs at this time show WBC 9.2, hemoglobin 14.3, platelets 145. Lymphocytes are 0.4. Sodium is 135, glucose 400, 511, 401, 301. Troponin 0.064. ASSESSMENT: 1. Change in mental status, acute metabolic encephalopathy because of uncontrolled diabetes mellitus, type 2. 2. Diabetes mellitus, type 2, with hyperosmolar state, possibly induced by steroids. 3. 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 4. Hyponatremia. 5. Thrombocytopenia. 6. Lymphopenia. 7. Troponin 0.064, indeterminate. 8. History of hypertension. 9. Hypothyroidism. 10.Gait dysfunction. 11.History of laryngectomy, thyroidectomy, and throat and nasal reconstruction. 12.History of nicotine dependence. 13.FULL CODE. RECOMMENDATIONS AND DISCUSSION: In this 70-year-old gentleman who presented with multiple complex medical issues, we will monitor the patient closely. The blood sugars are improving with insulin. I would recommend 20 units of Lantus and continue to monitor. Other than that, I would recommend repeat labs. PT/OT evaluation. Will follow with multiple consultants. There is no evidence of any infection. The chest x-ray, which was reviewed personally by me, showed no evidence of any acute abnormality. Prognosis is guarded. Home medications will be continued. Further recommendations to follow. A copy of this dictation is being forwarded to Dr. Pat, who is the primary physician. Will consult Hematology/Oncology as well. MMODL / KARENN: [id number] / [id number]
[2020-10-23 20:58] LABS: Glucose,Whole Blood 231 mg/dL (75-99)
[2020-10-23] MEDS ORDERED: INSULIN DETEMIR (LEVEMIR) 100 UNIT/ML SYR SQ SCH (21:00)
[2020-10-23] MEDS: PANTOPRAZOLE 40 MG TABLET PO SCH (21:24)
[2020-10-23] MEDS: NYSTATIN 100,000 UNIT/ML SUSP 500,000 UNIT/5 ML CUP PO SCH (21:25)
[2020-10-24] MEDS: NYSTATIN 100,000 UNIT/ML SUSP 500,000 UNIT/5 ML CUP PO SCH ×2 (00:15→08:19)
[2020-10-24 04:12] LABS: Hemoglobin A1C 8.3 % (4.0-6.0)
[2020-10-24 06:18] LABS: Glucose,Whole Blood 137 mg/dL (75-99)
[2020-10-24] MEDS ORDERED: LEVOTHYROXINE 75 MCG TAB PO SCH (06:30)
[2020-10-24] MEDS: PANTOPRAZOLE 40 MG TABLET PO SCH (07:05)
[2020-10-24] MEDS: INSULIN ASPART (NovoLOG) 100 UNIT/ML VIAL SQ SCH ×2 (07:05→13:15)
[2020-10-24 08:10] LABS: Anisocytosis Slight; Basophils % (A) 0 %; Eosinophils % (A) 0 %; HCT 40.8 % (39.0-53.0); HGB 13.6 gm/dL (13.0-17.5); Lymphocytes # (A) 0.5 k/uL (1.0-4.8); Lymphocytes % (A) 7 %; MCH 29.4 pg (25.0-35.0); MCHC 33.3 g/dL (31.0-37.0); MCV 88.1 fL (80.0-100.0); Mean Platelet Volume 7.2; Monocytes # (A) 0.1 k/uL (0-1.0); Monocytes % (A) 2 %; Neutrophils # (A) 6.1 k/uL (1.3-7.7); Neutrophils % (A) 90 %; Platelet Count 126 k/uL (150-450); RBC 4.62 m/uL (4.30-5.90); RDW 16.7 % (11.5-15.5); WBC 6.8 k/uL (3.8-10.6)
[2020-10-24 08:34] LABS: African American GFR (CKD) >90 (>60 ml/min/1.73 sqM); Anion Gap 3 mmol/L; Blood Urea Nitrogen 29 mg/dL (9-20); Calcium 8.8 mg/dL (8.4-10.2); Carbon Dioxide 29 mmol/L (22-30); Chloride 105 mmol/L (98-107); Glucose 73 mg/dL (74-99); Non-African American GFR(CKD) 88 (>60 ml/min/1.73 sqM); Potassium 3.9 mmol/L (3.5-5.1); Sodium 137 mmol/L (137-145)
[2020-10-24] MEDS ORDERED: dexAMETHasone 4 MG TAB PO SCH (09:00)
[2020-10-24] MEDS ORDERED: ATORVASTATIN 80 MG TAB PO SCH (09:00)
[2020-10-24] MEDS ORDERED: CLOPIDOGREL 75 MG TAB PO SCH (09:00)
[2020-10-24] MEDS ORDERED: ASPIRIN 81 MG PO SCH (09:00)
[2020-10-24] MEDS ORDERED: atenoloL 50 MG TAB PO SCH (09:00)
--- NOTE | 2020-10-24 10:16 | P.CONS ---
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 He underwent a course of adjuvant radiation finishing on November 04, 2019, also he has a history of extensive small cell lung cancer of the right upper lung. He has undergone chemoimmunotherapy with excellent response, he developed brain metastases this year , the patient recieved WBRT which he completed on 09/27/2020. follow-up CAT scan of the brain after 2 weeks of completing WBRT has revealed decreasing in the size of the enhancing masses except for the lesion in the left caudate nucleus which measures 2.7 cm now this could be a hemorrhagic. the patient came to the emergency room for weakness ,difficulty walking , urinary incontinence, repeating CAT scan of the head showed no changes comparing to the most recent CAT scan in 10/11/2020. It was found that he is hyperglycemic which is probably related to Decadron medication , the patient was placed in the hospital and admitted for supportive care. He is unable to communicate verbally, but he pointed to his head for headache, and weakness in the legs. Review of Systems Constitutional: Reports as per HPI Ears, nose, mouth and throat: Reports as per HPI Cardiovascular: Reports as per HPI Respiratory: Reports as per HPI Gastrointestinal: Reports as per HPI Genitourinary: Reports as per HPI Musculoskeletal: Reports as per HPI Integumentary: Reports as per HPI Neurological: Reports as per HPI Psychiatric: Reports as per HPI Endocrine: Reports as per HPI Hematologic/Lymphatic: Reports as per HPI Allergic/Immunologic: Reports as per HPI Past Medical History Past Medical History: Cancer, Hypertension, Thyroid Disorder Additional Past Medical History / Comment(s): Pt recently admitted to [facility] with recurrent falls/R leg weakness 2ndary to brain stem lesions/multiple brain lesions, hyponatremia. Other hx: 08/2019 laryngeal/glottic squamous cell cancer with laryngectomy/thyroidectomy/neck/throat and nasal reconstruction, 01/2020 small cell R lung cancer with chemo, 09/11/20 lung to brain mets/10 radiation treatments/now has falls/increased R leg weakness, past skin cancer with removals History of Any Multi-Drug Resistant Organisms: None Reported Additional Past Surgical History / Comment(s): [facility]: total laryngectomy/thyroidectomy, throat/neck/nasal resection with tracheostomy/prosthetic speaking valve, 02/10/20 brochoscopy with BAL/brushings/biopsies, colonoscopy. Past Anesthesia/Blood Transfusion Reactions: No Reported Reaction Past Psychological History: No Psychological Hx Reported Additional Psychological History / Comment(s): CLAUSTROPHOBIA. Pt resides with his spouse. He has a borrowed walker which is too wide for him and a cane but does not use them. He no longer drives, his spouse takes him to app. Pt is a and receiving home care, PT/OT and nurse thru [facility]. Pt has a cane and a walker. Smoking Status: Former smoker Past Alcohol Use History: Daily Additional Past Alcohol Use History / Comment(s): Pt started smoking in 1959 and quit in 1979. He was a heavy drinker-6 beers/day but recently quit all together. Past Drug Use History: None Reported - Past Family History Father Family Medical History: Myocardial Infarction ([place]) Additional Family Medical History / Comment(s): Father of a [place] at the age of 58yrs. Mother Family Medical History: CVA/TIA Additional Family Medical History / Comment(s): Mother is alive and is 96yrs old. Medications and Allergies Home Medications Medication Instructions Recorded Confirmed Type Levothyroxine Sodium 150 mcg PO DAILY 10/11/20 10/23/20 History Acetaminophen Tab [Tylenol] 650 mg PO Q6HR PRN tab 10/13/20 10/23/20 Rx Pantoprazole [Protonix] 40 mg PO AC-BID 14 Days #28 10/13/20 10/23/20 Rx tablet. Atenolol [Tenormin] 50 mg PO DAILY 10/23/20 10/23/20 History Dexamethasone [Decadron] 8 mg PO DAILY 10/23/20 10/23/20 History Nystatin 100,000 Unit/ml Susp 500,000 unit PO QID 10/23/20 10/23/20 History [Mycostatin Oral Susp] Allergies Allergy/AdvReac Type Severity Reaction Status Date / Time No Known Allergies Allergy Verified 10/23/20 11:59 Physical Exam Vitals: Vital Signs Temp Pulse Pulse Resp BP BP Pulse Ox 10/24/20 08:15 98.3 F 55 L 20 130/77 91 L 10/24/20 04:35 98.2 F 58 L 20 135/79 94 L 10/24/20 00:05 98.2 F 62 20 118/63 95 10/23/20 20:29 97.8 F 59 L 22 143/79 95 10/23/20 19:34 98.2 F 60 18 134/84 94 L 10/23/20 14:00 59 L 16 127/92 95 10/23/20 13:30 58 L 16 131/81 96 10/23/20 13:00 58 L 18 143/80 95 10/23/20 12:30 61 16 124/77 94 L 10/23/20 12:00 60 18 139/81 93 L 10/23/20 10:25 97.8 F 86 18 134/87 94 L Intake and Output 10/23/20 10/24/20 10/24/20 22:59 06:59 14:59 Output Total 125 225 Balance -125 -225 Output: Urine 125 225 Other: Voiding Method Urinal Urinal Diaper Diaper # Voids 1 Weight 77.564 kg 71.5 kg - EENT ENT: other (Tracheostomy, surgical scars, mild swelling in the neck.) - Neck Neck: other - Respiratory Respiratory: bilateral: rales - Cardiovascular Rhythm: regular - Gastrointestinal General gastrointestinal: no organomegaly, soft, no tenderness - Integumentary Integumentary: normal, normal turgor - Neurologic Neurologic: CNII-XII intact - Musculoskeletal Musculoskeletal: generalized weakness - Psychiatric Psychiatric: A&O x's 3, appropriate affect, intact judgment & insight Results CBC & Chem 7: 10/24/20 07:44 10/24/20 07:44 Labs: Abnormal Lab Results - Last 24 Hours (Table) 10/23/20 10/23/20 10/23/20 Range/Units 11:05 11:05 11:05 RDW 16.4 H (11.5-15.5) % Plt Count 145 L (150-450) k/uL Neutrophils # 9.3 H (1.3-7.7) k/uL Lymphocytes # 0.4 L (1.0-4.8) k/uL APTT 20.0 L (22.0-30.0) sec Sodium (137-145) mmol/L BUN (9-20) mg/dL Glucose (74-99) mg/dL POC Glucose (mg/dL) (75-99) mg/dL Hemoglobin A1c (4.0-6.0) % ALT (4-49) U/L Troponin I (0.000-0.034) ng/mL Total Protein (6.3-8.2) g/dL Albumin (3.5-5.0) g/dL Urine Protein Trace H (Negative) Urine Glucose (UA) 4+ H (Negative) 10/23/20 10/23/20 10/23/20 Range/Units 11:05 11:05 13:07 RDW (11.5-15.5) % Plt Count (150-450) k/uL Neutrophils # (1.3-7.7) k/uL Lymphocytes # (1.0-4.8) k/uL APTT (22.0-30.0) sec Sodium 135 L (137-145) mmol/L BUN 29 H (9-20) mg/dL Glucose 400 H (74-99) mg/dL POC Glucose (mg/dL) 511 H (75-99) mg/dL Hemoglobin A1c (4.0-6.0) % ALT 55 H (4-49) U/L Troponin I 0.064 H* (0.000-0.034) ng/mL Total Protein 5.6 L (6.3-8.2) g/dL Albumin 3.2 L (3.5-5.0) g/dL Urine Protein (Negative) Urine Glucose (UA) (Negative) 10/23/20 10/23/20 10/23/20 Range/Units 16:13 17:42 18:27 RDW (11.5-15.5) % Plt Count (150-450) k/uL Neutrophils # (1.3-7.7) k/uL Lymphocytes # (1.0-4.8) k/uL APTT (22.0-30.0) sec Sodium (137-145) mmol/L BUN (9-20) mg/dL Glucose (74-99) mg/dL POC Glucose (mg/dL) 401 H 301 H (75-99) mg/dL Hemoglobin A1c 8.3 H (4.0-6.0) % ALT (4-49) U/L Troponin I (0.000-0.034) ng/mL Total Protein (6.3-8.2) g/dL Albumin (3.5-5.0) g/dL Urine Protein (Negative) Urine Glucose (UA) (Negative) 10/23/20 10/23/20 10/23/20 Range/Units 18:27 20:57 22:12 RDW (11.5-15.5) % Plt Count (150-450) k/uL Neutrophils # (1.3-7.7) k/uL Lymphocytes # (1.0-4.8) k/uL APTT (22.0-30.0) sec Sodium (137-145) mmol/L BUN (9-20) mg/dL Glucose (74-99) mg/dL POC Glucose (mg/dL) 231 H (75-99) mg/dL Hemoglobin A1c (4.0-6.0) % ALT (4-49) U/L Troponin I 0.050 H* 0.045 H* (0.000-0.034) ng/mL Total Protein (6.3-8.2) g/dL Albumin (3.5-5.0) g/dL Urine Protein (Negative) Urine Glucose (UA) (Negative) 10/24/20 10/24/20 10/24/20 Range/Units 06:16 07:44 07:44 RDW 16.7 H (11.5-15.5) % Plt Count 126 L (150-450) k/uL Neutrophils # (1.3-7.7) k/uL Lymphocytes # 0.5 L (1.0-4.8) k/uL APTT (22.0-30.0) sec Sodium (137-145) mmol/L BUN 29 H (9-20) mg/dL Glucose 73 L (74-99) mg/dL POC Glucose (mg/dL) 137 H (75-99) mg/dL Hemoglobin A1c (4.0-6.0) % ALT (4-49) U/L Troponin I (0.000-0.034) ng/mL Total Protein (6.3-8.2) g/dL Albumin (3.5-5.0) g/dL Urine Protein (Negative) Urine Glucose (UA) (Negative) Assessment and Plan Assessment: 68 years old with a history of 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 (1) Brain cancer Current Visit: No Status: Acute Code(s): C71.9 - MALIGNANT NEOPLASM OF BRAIN, UNSPECIFIED SNOMED Code(s): 723776760 (2) Head and neck cancer Current Visit: No Status: Acute Code(s): C76.0 - MALIGNANT NEOPLASM OF HEAD, FACE AND NECK SNOMED Code(s): 186015948 (3) Mass of upper lobe of right lung Current Visit: No Status: Acute Code(s): R91.8 - OTHER NONSPECIFIC ABNORMAL FINDING OF LUNG FIELD SNOMED Code(s): 068649619 Plan: Images reviewed, no new lesions or hemorrhage was seen in the CT scan of the head, the patient is symptomatic probably to the mass effect of the brain lesio ns or related to the vasogenic edema that was caused probably by by the recent radiation effect , he is taking decadron to control these effects , and fortunately the decadron has increased his blood sugar to be hyperglycemic . No further Radiotherapy intervention would be recommended at this time. Continue with the supportive care and management as indicated.
--- NOTE | 2020-10-24 10:24 | P.CRDCN ---
History of Present Illness History of present illness: HISTORY OF PRESENTING ILLNESS This is a pleasant 70-year-old male past medical history significant for laryngeal squamous cell cancer with metastatis to brain status post laryngectomy and bilateral lymph node dissection, tracheostomy, hypertension, former nicotine dependence, former alcohol dependence.. He does not follow with a hosiery mender. We have been asked to see in consultation for elevated troponin and chest pain. Patient presents to the emergency department with worsening weakness for the past 2-3 days. He also has been having some mild chest discomfort and shortness of breath for the past 2-3 days. Patient denies nausea, diaphoresis. Patient has been previously admitted / with frequent falls and weakness at that time was thought that this was due to brainstem lesion multiple stenotic lesions in the brain. Patient was started on Decadron and Keppra per neurology and oncology was consulted for management of patient. Patient was stabilized and discharged home. Patient is seen and examined at bedside, no acute distress. Denies any current chest pain or shortness of breath. Denies dizziness or lightheadedness or pre syncope symptoms. Denies symptoms of orthopnea or PND. EKG sinus rhythm, heart rate 66, new ST wave depression in the anterolateral leads. Prior EKG in 10/2020 sinus bradycardia HR 52 with 1st degree AV block. Troponin 0.06-->0.05-->0.04. Blood pressure 130/77, heart rate 55, afebrile, maintaining oxygen saturation is 94% on room air. DIAGNOSTICS Telemetry tracings indicate sinus bradycardia heart rate in the 50s CT brain multiple rounded hypodensity which appear to be less hypertensive and on prior study suggested improving areas of focal hemorrhage and/or improving hemorrhagic metastases test assess. No new lesions for new areas of hemorrhage. No midline shift. Persistent moderate hydrocephalus Chest xray no active acute pulmonary disease. Laboratory reviewed, sodium 137, potassium 3.9, serum creatinine 0.2, BUN 29, WBC 6.8, hemoglobin 13.6, platelets 126, hemoglobin A1c 8.3 Current cardiac medications include atenolol 50 mg daily REVIEW OF SYSTEMS At the time of my exam: CONSTITUTIONAL: Denies fever or chills. CARDIOVASCULAR: + chest pain, +shortness of breath, Denies orthopnea, PND or palpitations. RESPIRATORY: Denies cough. GASTROINTESTINAL: Denies abdominal pain, diarrhea, constipation, nausea or vomiting. MUSCULOSKELETAL: Denies myalgias. NEUROLOGIC: +weakness Denies numbness, tingling, headache ENDOCRINE: Denies fatigue, weight change, polydipsia or polyurina. GENITOURINARY: Denies burning, hematuria or urgency with micturation. HEMATOLOGIC: Denies history of anemia or bleeding. PHYSICAL EXAMINATION CONSTITUTIONAL: No apparent distress. HEENT: Head is normocephalic. Pupils are equal, round. Sclerae anicteric. Mucous membranes of the mouth are moist. No JVD. No carotid bruit. Tracheostomy present CHEST EXAMINATION: Lungs diminished bilaterally to auscultation. No chest wall tenderness is noted on palpation or with deep breathing. HEART EXAMINATION: Regular rate and rhythm. S1, S2 heard. No murmurs, gallops or rub. ABDOMEN: Soft, nontender. Positive bowel sounds. EXTREMITIES: 2+ peripheral pulses, no lower extremity edema and no calf tenderness. NEUROLOGIC EXAMINATION: Patient is awake, alert and oriented x3. ASSESSMENT NSTEMI Hypertension Type 2 Diabetes History of small cell lung cancer with metastasis to the brain History of laryngeal cancer s/p laryngectomy and bilateral lymph node dissection Tracheostomy Former nicotine dependence Former etoh use PLAN Obtain 2D echocardiogram At this time we will continue medical management and do not recommend cardiac catheterization Start aspirin 81mg daily, atorvastatin 80mg daily, Plavix 75mg daily Continue atenolol 50 mg daily Continue cardiac telemetry Nurse Practitioner note has been reviewed, I agree with a documented findings and plan of care. Patient was seen and examined. Past Medical History Past Medical History: Cancer, Hypertension, Thyroid Disorder Additional Past Medical History / Comment(s): Pt recently admitted to [facility] with recurrent falls/R leg weakness 2ndary to brain stem lesions/multiple brain lesions, hyponatremia. Other hx: 08/2019 laryngeal/glottic squamous cell cancer with laryngectomy/thyroidectomy/neck/throat and nasal reconstruction, 01/2020 small cell R lung cancer with chemo, 09/11/20 lung to brain mets/10 radiation treatments/now has falls/increased R leg weakness, past skin cancer with removals History of Any Multi-Drug Resistant Organisms: None Reported Additional Past Surgical History / Comment(s): [facility]: total laryngectomy/thyroidectomy, throat/neck/nasal resection with tracheostomy/prosthetic speaking valve, 02/10/20 brochoscopy with BAL/brushings/biopsies, colonoscopy. Past Anesthesia/Blood Transfusion Reactions: No Reported Reaction Past Psychological History: No Psychological Hx Reported Additional Psychological History / Comment(s): CLAUSTROPHOBIA. Pt resides with his spouse. He has a borrowed walker which is too wide for him and a cane but does not use them. He no longer drives, his spouse takes him to [facility] [place]. Pt is a and receiving home care, PT/OT and nurse thru [facility]. Pt has a cane and a walker. Smoking Status: Former smoker Past Alcohol Use History: Daily Additional Past Alcohol Use History / Comment(s): Pt started smoking in 1959 and quit in 1979. He was a heavy drinker-6 beers/day but recently quit all together. Past Drug Use History: None Reported - Past Family History Father Family Medical History: Myocardial Infarction ([place]) Additional Family Medical History / Comment(s): Father of a [place] at the age of 58yrs. Mother Family Medical History: CVA/TIA Additional Family Medical History / Comment(s): Mother is alive and is 96yrs old. Medications and Allergies Home Medications Medication Instructions Recorded Confirmed Type Levothyroxine Sodium 150 mcg PO DAILY 10/11/20 10/23/20 History Acetaminophen Tab [Tylenol] 650 mg PO Q6HR PRN tab 10/13/20 10/23/20 Rx Pantoprazole [Protonix] 40 mg PO AC-BID 14 Days #28 10/13/20 10/23/20 Rx tablet. Atenolol [Tenormin] 50 mg PO DAILY 10/23/20 10/23/20 History Dexamethasone [Decadron] 8 mg PO DAILY 10/23/20 10/23/20 History Nystatin 100,000 Unit/ml Susp 500,000 unit PO QID 10/23/20 10/23/20 History [Mycostatin Oral Susp] Allergies Allergy/AdvReac Type Severity Reaction Status Date / Time No Known Allergies Allergy Verified 10/23/20 11:59 Physical Exam Vitals: Vital Signs Temp Pulse Pulse Resp BP BP Pulse Ox 10/24/20 04:35 98.2 F 58 L 20 135/79 94 L 10/24/20 00:05 98.2 F 62 20 118/63 95 10/23/20 20:29 97.8 F 59 L 22 143/79 95 10/23/20 19:34 98.2 F 60 18 134/84 94 L 10/23/20 14:00 59 L 16 127/92 95 10/23/20 13:30 58 L 16 131/81 96 10/23/20 13:00 58 L 18 143/80 95 10/23/20 12:30 61 16 124/77 94 L 10/23/20 12:00 60 18 139/81 93 L 10/23/20 10:25 97.8 F 86 18 134/87 94 L Intake and Output 10/23/20 10/24/20 10/24/20 22:59 06:59 14:59 Output Total 125 Balance -125 Output: Urine 125 Other: Voiding Method Urinal Urinal Diaper Diaper # Voids 1 Weight 77.564 kg Results 10/24/20 07:44 10/24/20 07:44 Cardiac Enzymes 10/23/20 10/23/20 10/23/20 Range/Units 11:05 11:05 18:27 AST 29 (17-59) U/L Troponin I 0.064 H* 0.050 H* (0.000-0.034) ng/mL 10/23/20 Range/Units 22:12 AST (17-59) U/L Troponin I 0.045 H* (0.000-0.034) ng/mL Coagulation 10/23/20 Range/Units 11:05 PT 9.4 (9.0-12.0) sec APTT 20.0 L (22.0-30.0) sec CBC 10/23/20 Range/Units 11:05 WBC 9.9 (3.8-10.6) k/uL RBC 4.93 (4.30-5.90) m/uL Hgb 14.3 (13.0-17.5) gm/dL Hct 43.5 (39.0-53.0) % Plt Count 145 L (150-450) k/uL Comprehensive Metabolic Panel 10/23/20 Range/Units 11:05 Sodium 135 L (137-145) mmol/L Potassium 4.8 (3.5-5.1) mmol/L Chloride 104 (98-107) mmol/L Carbon Dioxide 22 (22-30) mmol/L BUN 29 H (9-20) mg/dL Creatinine 0.78 (0.66-1.25) mg/dL Glucose 400 H (74-99) mg/dL Calcium 8.9 (8.4-10.2) mg/dL AST 29 (17-59) U/L ALT 55 H (4-49) U/L Alkaline Phosphatase 67 (38-126) U/L Total Protein 5.6 L (6.3-8.2) g/dL Albumin 3.2 L (3.5-5.0) g/dL Current Medications Generic Name Dose Route Start Last Admin Trade Name Freq PRN Reason Stop Dose Admin Acetaminophen 650 mg 10/23/20 18:12 Acetaminophen Tab 325 Mg Tab PO Q6HR PRN Mild Pain or Fever > 100.5 Hydrocodone Bitart/Acetaminophen 1 each 10/23/20 18:14 Hydrocodone/Apap 5-325mg 1 Each Tab PO Q6HR PRN Pain Atenolol 50 mg 10/24/20 09:00 Atenolol 50 Mg Tab PO DAILY [facility] Dexamethasone 8 mg 10/24/20 09:00 Dexamethasone 4 Mg Tab PO DAILY [facility] Folic Acid 1 mg 10/24/20 12:00 Folic Acid 1 Mg Tab PO DAILY@1200 [facility] Sodium Chloride 1,000 mls @ 20 mls/hr 10/23/20 12:45 10/23/20 13:40 Saline 0.9% IV Not Given .Q24H [facility] Insulin Aspart 0 unit 10/23/20 17:30 10/23/20 21:25 Insulin Aspart (Novolog) 100 Unit/Ml Vial SQ 3 unit ACHS [facility] Administration Protocol Insulin Detemir 20 unit 10/23/20 21:00 10/23/20 21:25 Insulin Detemir (Levemir) 100 Unit/Ml Syr SQ 20 unit HS [facility] Administration Levothyroxine Sodium 150 mcg 10/24/20 06:30 Levothyroxine [address] [place] [address] [facility] Multivitamins 1 each 10/24/20 12:00 Multivitamins, Thera 1 Each Tab PO DAILY@1200 [facility] Naloxone HCl 0.2 mg 10/23/20 12:36 Naloxone 0.4 Mg/Ml 1 Ml Vial IV Q2M PRN Opioid Reversal Nystatin 500,000 unit 10/23/20 18:15 10/24/20 00:15 Nystatin 100,000 Unit/Ml Susp 500,000 Unit/5 Ml Cup PO 500,000 unit QID [facility] Administration Pantoprazole Sodium 40 mg 10/23/20 18:15 10/23/20 21:24 Pantoprazole 40 Mg Tablet PO 40 mg AC-BID [facility] Administration Thiamine HCl 100 mg 10/24/20 12:00 Thiamine 100 Mg Tab PO DAILY@1200 [facility] Intake and Output 10/23/20 10/24/20 10/24/20 22:59 06:59 14:59 Output Total 125 Balance -125 Output: Urine 125 Other: Voiding Method Urinal Urinal Diaper Diaper # Voids 1 Weight 77.564 kg 10/23/20 11:05 10/23/20 11:05
[2020-10-24] MEDS ORDERED: THIAMINE 100 MG TAB PO SCH (12:00)
[2020-10-24] MEDS ORDERED: MULTIVITAMINS, THERA 1 EACH TAB PO SCH (12:00)
[2020-10-24] MEDS ORDERED: FOLIC ACID 1 MG TAB PO SCH (12:00)
[2020-10-24 12:14] LABS: Glucose,Whole Blood 65 mg/dL (75-99)
[2020-10-24 12:55] LABS: Glucose,Whole Blood 122 mg/dL (75-99)
[2020-10-24 14:26] VITALS: BP 137/78; PULSE 57; RESP 18; TEMP 97.2
--- NOTE | 2020-10-24 16:51 | P.CONS ---
History of Present Illness - Reason for Consult Consult date: 10/24/20 Malignancy Requesting physician: Madi Contreras - Chief Complaint hyperglycemia - History of Present Illness Mr. Fried is a very pleasant male pt of Dr. Mendenhall who has a Hx of sq cell cancer of the larynx. 01/13/20 he has total laryngectomy with bilateral neck dissection Dr. Simmons at [facility]. T3, N0 (0/). He had adjuvant XRT with Dr. Chaudhari. 02/15/20 he had a PET scan new rt hilar mass with mediastinal lymphadenopathy, suspected liver & bone mets. Diagnostic bronchoscopy by Dr. Woo 02/10/20, path revealing small cell carcinoma. He started carbo/[employer] 03/05, treatment f/u scan 05/29/20 with response to treatment evidenced by marked interval improvement in hilar and thoracic adenopathy, no areas of abnormal hypermetabolic uptake. Interval progression of osseous disease without abnormal uptake. Immunotherapy with tecentriq was added. in Jun 2020 PET showed complete metabolic response. In August pt had c/o rt sided OSORIO, brain mets. He completed XRT and is currently on tapering steroids. He was hospitalized 10/12 after fall, MRI brain showed majority of masses improved, he was discharged on 10/16/20. Last dose of tecentriq was 09/25/20 He is admitted with c/o urinary frequency (every 1/2 hour per ) and fall. said his legs were very weak and he was confused. She called Dr. Chaudhari and pt is admitted with steroid induced hyperglycemia, treated with fluids and insulin. MRI of the brain is not showing any new or progressive lesions. Pt is responding very well during our discussion, he is no longer feeling like he is going to fall over, his leg strength is good, has help and wants to get him home so he doesn't get weak. Review of Systems 10 point ROS is neg Past Medical History Past Medical History: Cancer, Hypertension, Thyroid Disorder Additional Past Medical History / Comment(s): Pt recently admitted to [facility] with recurrent falls/R leg weakness 2ndary to brain stem lesions/multiple brain lesions, hyponatremia. 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 Past Anesthesia/Blood Transfusion Reactions: No Reported Reaction Past Psychological History: No Psychological Hx Reported Additional Psychological History / Comment(s): CLAUSTROPHOBIA. Pt resides with his spouse. He has a borrowed walker which is too wide for him and a cane but does not use them. He no longer drives, his spouse takes him to [employer]. Pt is a and receiving home care, PT/OT and nurse thru [facility]. Pt has a cane and a walker. Smoking Status: Former smoker Past Alcohol Use History: Daily Additional Past Alcohol Use History / Comment(s): Pt started smoking in 1959 and quit in 1979. He was a heavy drinker-6 beers/day but recently quit all together. Past Drug Use History: None Reported - Past Family History Father Family Medical History: Myocardial Infarction ([place]) Additional Family Medical History / Comment(s): Father of a [place] at the age of 58yrs. Mother Family Medical History: CVA/TIA Additional Family Medical History / Comment(s): Mother is alive and is 96yrs old. Medications and Allergies Home Medications Medication Instructions Recorded Confirmed Type Levothyroxine Sodium 150 mcg PO DAILY 10/11/20 10/23/20 History Acetaminophen Tab [Tylenol] 650 mg PO Q6HR PRN tab 10/13/20 10/23/20 Rx Pantoprazole [Protonix] 40 mg PO AC-BID 14 Days #28 10/13/20 10/23/20 Rx tablet. Atenolol [Tenormin] 50 mg PO DAILY 10/23/20 10/23/20 History Dexamethasone [Decadron] 8 mg PO DAILY 10/23/20 10/23/20 History Nystatin 100,000 Unit/ml Susp 500,000 unit PO QID 10/23/20 10/23/20 History [Mycostatin Oral Susp] Aspirin 81 mg PO DAILY 30 Days #30 chew 10/24/20 Rx Atorvastatin [Lipitor] 80 mg PO DAILY 30 Days #30 tab 10/24/20 Rx Clopidogrel [Plavix] 75 mg PO DAILY 30 Days #30 tab 10/24/20 Rx Folic Acid 1 mg PO DAILY@1200 30 Days #30 tab 10/24/20 Rx Insulin Detemir (Levemir) [Levemir] 15 unit SQ HS 30 Days #4 syr 10/24/20 Rx Multivitamins, Thera [Multivitamin 1 each PO DAILY@1200 30 Days #30 10/24/20 Rx (formulary)] tab Thiamine [Vitamin B-1] 100 mg PO DAILY@1200 30 Days #30 10/24/20 Rx tab Allergies Allergy/AdvReac Type Severity Reaction Status Date / Time No Known Allergies Allergy Verified 10/23/20 11:59 Physical Exam Vitals: Vital Signs Temp Pulse Pulse Resp BP BP Pulse Ox 10/24/20 08:15 98.3 F 55 L 20 130/77 91 L 10/24/20 04:35 98.2 F 58 L 20 135/79 94 L 10/24/20 00:05 98.2 F 62 20 118/63 95 10/23/20 20:29 97.8 F 59 L 22 143/79 95 10/23/20 19:34 98.2 F 60 18 134/84 94 L 10/23/20 14:00 59 L 16 127/92 95 10/23/20 13:30 58 L 16 131/81 96 10/23/20 13:00 58 L 18 143/80 95 10/23/20 12:30 61 16 124/77 94 L 10/23/20 12:00 60 18 139/81 93 L 10/23/20 10:25 97.8 F 86 18 134/87 94 L Intake and Output 10/23/20 10/24/20 10/24/20 22:59 06:59 14:59 Output Total 125 225 Balance -125 -225 Output: Urine 125 225 Other: Voiding Method Urinal Urinal Diaper Diaper # Voids 1 Weight 77.564 kg 71.5 kg - Constitutional General appearance: cooperative, no acute distress, thin - EENT trach, neck has tough skin c/w surgery and radiation scarring Eyes: anicteric sclerae, EOMI ENT: hearing grossly normal - Neck Neck: no lymphadenopathy - Respiratory Respiratory: bilateral: CTA - Cardiovascular Rhythm: regular Heart sounds: normal: S1, S2 Abnormal Heart Sounds: no systolic murmur, no diastolic murmur, no rub, no S3 Gallop, no S4 Gallop, no click, no other leg Peripheral Edema: bilateral: None - Gastrointestinal General gastrointestinal: no absent bowel sounds, no decreased bowel sounds, no distended, no hepatomegaly, no hyperactive bowel sounds, normal bowel sounds, no organomegaly, no rigid, no scaphoid, soft, no splenomegaly, no tenderness, no umbilical hernia, no ventral hernia - Integumentary Integumentary: normal - Musculoskeletal Musculoskeletal: strength equal bilaterally - Psychiatric Psychiatric: A&O x's 3, appropriate affect, intact judgment & insight Results CBC & Chem 7: 10/24/20 07:44 10/24/20 07:44 Labs: Abnormal Lab Results - Last 24 Hours (Table) 10/23/20 10/23/20 10/23/20 Range/Units 11:05 11:05 11:05 RDW 16.4 H (11.5-15.5) % Plt Count 145 L (150-450) k/uL Neutrophils # 9.3 H (1.3-7.7) k/uL Lymphocytes # 0.4 L (1.0-4.8) k/uL APTT 20.0 L (22.0-30.0) sec Sodium (137-145) mmol/L BUN (9-20) mg/dL Glucose (74-99) mg/dL POC Glucose (mg/dL) (75-99) mg/dL Hemoglobin A1c (4.0-6.0) % ALT (4-49) U/L Troponin I (0.000-0.034) ng/mL Total Protein (6.3-8.2) g/dL Albumin (3.5-5.0) g/dL Urine Protein Trace H (Negative) Urine Glucose (UA) 4+ H (Negative) 10/23/20 10/23/20 10/23/20 Range/Units 11:05 11:05 13:07 RDW (11.5-15.5) % Plt Count (150-450) k/uL Neutrophils # (1.3-7.7) k/uL Lymphocytes # (1.0-4.8) k/uL APTT (22.0-30.0) sec Sodium 135 L (137-145) mmol/L BUN 29 H (9-20) mg/dL Glucose 400 H (74-99) mg/dL POC Glucose (mg/dL) 511 H (75-99) mg/dL Hemoglobin A1c (4.0-6.0) % ALT 55 H (4-49) U/L Troponin I 0.064 H* (0.000-0.034) ng/mL Total Protein 5.6 L (6.3-8.2) g/dL Albumin 3.2 L (3.5-5.0) g/dL Urine Protein (Negative) Urine Glucose (UA) (Negative) 10/23/20 10/23/20 10/23/20 Range/Units 16:13 17:42 18:27 RDW (11.5-15.5) % Plt Count (150-450) k/uL Neutrophils # (1.3-7.7) k/uL Lymphocytes # (1.0-4.8) k/uL APTT (22.0-30.0) sec Sodium (137-145) mmol/L BUN (9-20) mg/dL Glucose (74-99) mg/dL POC Glucose (mg/dL) 401 H 301 H (75-99) mg/dL Hemoglobin A1c 8.3 H (4.0-6.0) % ALT (4-49) U/L Troponin I (0.000-0.034) ng/mL Total Protein (6.3-8.2) g/dL Albumin (3.5-5.0) g/dL Urine Protein (Negative) Urine Glucose (UA) (Negative) 10/23/20 10/23/20 10/23/20 Range/Units 18:27 20:57 22:12 RDW (11.5-15.5) % Plt Count (150-450) k/uL Neutrophils # (1.3-7.7) k/uL Lymphocytes # (1.0-4.8) k/uL APTT (22.0-30.0) sec Sodium (137-145) mmol/L BUN (9-20) mg/dL Glucose (74-99) mg/dL POC Glucose (mg/dL) 231 H (75-99) mg/dL Hemoglobin A1c (4.0-6.0) % ALT (4-49) U/L Troponin I 0.050 H* 0.045 H* (0.000-0.034) ng/mL Total Protein (6.3-8.2) g/dL Albumin (3.5-5.0) g/dL Urine Protein (Negative) Urine Glucose (UA) (Negative) 10/24/20 10/24/20 10/24/20 Range/Units 06:16 07:44 07:44 RDW 16.7 H (11.5-15.5) % Plt Count 126 L (150-450) k/uL Neutrophils # (1.3-7.7) k/uL Lymphocytes # 0.5 L (1.0-4.8) k/uL APTT (22.0-30.0) sec Sodium (137-145) mmol/L BUN 29 H (9-20) mg/dL Glucose 73 L (74-99) mg/dL POC Glucose (mg/dL) 137 H (75-99) mg/dL Hemoglobin A1c (4.0-6.0) % ALT (4-49) U/L Troponin I (0.000-0.034) ng/mL Total Protein (6.3-8.2) g/dL Albumin (3.5-5.0) g/dL Urine Protein (Negative) Urine Glucose (UA) (Negative) CT Scan - head: report reviewed Assessment and Plan (1) Steroid-induced hyperglycemia Narrative/Plan: Likely cause of polyuria, weakness exacerbated by dehydration. Pt is doing much better after hydration and insulin Tapering steroid plan discussed with pt . 4mg PO QD x 7 days then 2mg (1/2 tab) daily x 7 days then stop. She verbalized understanding Status: Acute Priority: High Code(s): R73.9 - HYPERGLYCEMIA, UNSPECIFIED; T38.0X5A - ADVERSE EFFECT OF GLUCOCORT/SYNTH ANALOG, INIT SNOMED Code(s): 591179797 (2) Frequent falls Narrative/Plan: Pt said he uses assistive devices at home. the [facility] is providing PT/OT and home care nurse twice a week to help with pt strength and balance. Agree with the same Status: Acute Priority: High Code(s): R29.6 - REPEATED FALLS SNOMED Code(s): 936682048 (3) Small cell lung cancer Status: Chronic Priority: Medium Code(s): C34.90 - MALIGNANT NEOPLASM OF UNSP PART OF UNSP BRONCHUS OR LUNG SNOMED Code(s): 094171626 (4) Brain metastasis Narrative/Plan: Case discussed with Rad Onc. No new or progressive brain mets. Agrees with steroid taper. Cont f/u as scheduled Reviewed case with Primary Onc. Pt has referral to Neurosurgeon for evaluation and possible shunt for hydrocephalis. Ok to keep that appt. Keep appt to f/u with Neurologist. Status: Chronic Priority: Medium Code(s): C79.31 - SECONDARY MALIGNANT NEOP LASM OF BRAIN SNOMED Code(s): 98442864 (5) Head and neck cancer Narrative/Plan: No evidence to suggest recurrent disease. Keep f/u and monitoring as scheduled Status: Chronic Code(s): C76.0 - MALIGNANT NEOPLASM OF HEAD, FACE AND NECK SNOMED Code(s): 601431333 Plan: attests: I have performed H&P and developed impression and plan of care for pt,. discussed with dictator. Agree with dictated note, documented as a scribe.
--- NOTE | 2020-10-24 22:02 | DS ---
DISCHARGE SUMMARY FINAL DIAGNOSES: 1. Change in mental status, acute metabolic encephalopathy because of uncontrolled diabetes mellitus, type 2. 2. Diabetes mellitus, type 2, new onset, with hyperosmolar state, possibly induced by steroids, with no evidence of ketosis. 3. 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 4. Hyponatremia. 5. Thrombocytopenia. 6. Lymphopenia. 7. Change in mental status, acute metabolic encephalopathy. 8. Troponin 0.064, indeterminate. 9. History of hypertension. 10.Hypothyroidism. 11.Gait dysfunction. 12.History of laryngectomy, thyroidectomy and throat and nasal reconstruction. 13.History of nicotine dependence. 14.FULL CODE. DISCHARGE DISPOSITION: The patient will be discharged in stable condition with guarded prognosis. Total time taken 35 minutes. HISTORY OF PRESENT ILLNESS: This 70-year-old gentleman with a past medical history of multiple medical problems was admitted with change in mental status, weakness, falls and multiple other medical issues. Blood sugar was found to be elevated up to 511. There was no evidence of ketosis. Patient responded to subcutaneous insulin protocol. Patient improved significantly and the patient's and the family were keen on the patient going home at this time, so the patient will be discharged in stable condition with guarded prognosis. I would recommend for the patient a daily dose of Lantus and monitor Accu- Cheks very closely and follow with primary physician and avoid any Lantus injections with blood sugar less than 120. On exam, vitals are stable. CARDIOVASCULAR SYSTEM: S1, S2 muffled. ABDOMEN: Soft. NERVOUS SYSTEM: No focal deficit. DISCHARGE ADVICE AND MEDICATIONS: 1. Diet is cardiac, consistent carb. 2. Activity limited until followup. 3. Follow up with [facility] in 2-3 days with labs CBC, BMP. 4. Follow up with Oncology and Radiation Oncology, Dr. Chaudhari, as recommended. 5. Decadron 8 mg p.o. daily. 6. Levothyroxine 150 mcg p.o. daily. 7. Nystatin 500,000 p.o. daily as before. 8. Tenormin 50 mg p.o. daily. 9. Aspirin 81 mg daily. 10.Folic acid 1 mg daily. 11.Levemir 15 units subcutaneously at bedtime. Hold if the Accu-Chek is less than 120. 12.Lipitor 80 mg daily. 13.Multivitamins 1 p.o. daily. 14.Plavix 75 mg daily. 15.Protonix 40 mg daily. 16.Tylenol p.r.n. 17.Vitamin B1 100 mg p.o. daily. MMODL / IJN: [id number] /
--- NOTE | 2020-11-03 09:34 | ECHOF ---
Referral Reason:chest pain MEASUREMENTS -------- HEIGHT: 168.9 cm WEIGHT: 71.2 kg BP: 130/77 RVIDd: 3.1 cm (< 3.3) IVSd: 1.5 cm (0.6 - 1.1) LVIDd: 4.3 cm (3.9 - 5.3) LVPWd: 1.5 cm (0.6 - 1.1) IVSs: 2.1 cm LVIDs: 2.9 cm LVPWs: 1.7 cm LA Diam: 3.5 cm (2.7 - 3.8) LAESV Index (A-L): 27.95 ml/m Ao Diam: 4.3 cm (2.0 - 3.7) AV Cusp: 1.3 cm (1.5 - 2.6) MV EXCURSION: 10.738 mm (> 18.000) MV EF SLOPE: 38 mm/s (70 - 150) EPSS: 0.9 cm MV E Frederic: 0.50 m/s MV DecT: 252 ms MV A Frederic: 0.60 m/s MV E/A Ratio: 0.83 AV maxP.80 mmHg AV meanP.17 mmHg AR PHT: 709 ms RAP: 5.00 mmHg RVSP: 30.29 mmHg FINDINGS -------- Resting bradycardia (HR<60bpm). This was a technically adequate study. The left ventricular size is normal. There is moderate concentric left ventricular hypertrophy. O verall left ventricular systolic function is normal with, an EF between 65 - 70 %. The right ventricle is normal in size. Normal LA size by volume 22+/-6 ml/m2. The right atrium is normal in size. Interatrial and interventricular septum intact. There is mild aortic valve sclerosis. There is moderate aortic regurgitation. There is mild aorti c stenosis present. Peak/mean gradient across the Aortic Valve is 21.80mmHg / 12.17mmHg. Mild mitral annular calcification present. Mild tricuspid regurgitation present. Right ventricular systolic pressure is normal at < 35 mmHg. The pulmonic valve is normal. The aortic root is dilated measuring 4.3cm. Normal inferior vena cava with normal inspiratory collapse consistent with estimated right atrial pre ssure of 5 mmHg. There is no pericardial effusion. CONCLUSIONS -------- 1. Resting bradycardia (HR<60bpm). 2. The left ventricular size is normal. 3. There is moderate concentric left ventricular hypertrophy. 4. Overall left ventricular systolic function is normal with, an EF between 65 - 70 %. 5. There is mild aortic valve sclerosis. 6. There is moderate aortic regurgitation. 7. There is mild aortic stenosis present. 8. Peak/mean gradient across the Aortic Valve is 21.80mmHg / 12.17mmHg. 9. Mild mitral annular calcification present. 10. Mild tricuspid regurgitation present. 11. The aortic root is dilated measuring 4.3cm. 12. There is no pericardial effusion. TUCK POINTER HELPER: Grecia Dewitt RDCS
== END 2020-10-24 16:15 | disposition home health service (06) | DRG 637 ==
LOC: EC 10:24 → 3SCARD 12:52
PROVIDERS: ADMIT Hospitalist; ATTEND Hospitalist
DX: E11.00 Type 2 diabetes mellitus with hyperosmolarity without nonketotic hyperglycemic-hyperosmolar coma (NKHHC) (principal); G93.41 Metabolic encephalopathy; I21.4 Non-ST elevation (NSTEMI) myocardial infarction; C79.31 Secondary malignant neoplasm of brain; E87.1 Hypo-osmolality and hyponatremia; G91.9 Hydrocephalus, unspecified; I10 Essential (primary) hypertension; Z85.118 Personal history of other malignant neoplasm of bronchus and lung; Z92.3 Personal history of irradiation; R41.3 Other amnesia; E89.0 Postprocedural hypothyroidism; Z82.49 Family history of ischemic heart disease and other diseases of the circulatory system; D69.6 Thrombocytopenia, unspecified; D72.810 Lymphocytopenia; Z87.891 Personal history of nicotine dependence; Z85.21 Personal history of malignant neoplasm of larynx; R32 Unspecified urinary incontinence; R51.9 Headache, unspecified; R26.2 Difficulty in walking, not elsewhere classified; Z79.890 Hormone replacement therapy; Z79.899 Other long term (current) drug therapy; R05 Cough; Z85.828 Personal history of other malignant neoplasm of skin; Z20.822 Contact with and (suspected) exposure to COVID-19; E07.9 Disorder of thyroid, unspecified; T38.0X5A Adverse effect of glucocorticoids and synthetic analogues, initial encounter; C76.0 Malignant neoplasm of head, face and neck; E86.0 Dehydration; F40.240 Claustrophobia; R29.6 Repeated falls; Z79.02 Long term (current) use of antithrombotics/antiplatelets; Z79.4 Long term (current) use of insulin; Z79.82 Long term (current) use of aspirin
CPT/HCPCS: 36415; 70450; 71046; 80048; 80053; 81003; 83036; 84484; 85025; 85610; 85730; 87635; 93005; 93306; 99285

== ENCOUNTER 2020-10-30 17:08 | Inpatient (IN) | payer OTHER, MEDICARE ==
--- NOTE | 2020-10-30 18:14 | ED ---
General Adult HPI - General Chief complaint: Extremity Problem,Nontraumatic Stated complaint: Weakness Time Seen by Provider: 10/30/20 17:42 Source: patient, family, EMS, RN notes reviewed, old records reviewed Mode of arrival: EMS Limitations: language barrier - History of Present Illness Initial comments: 70-year-old male who had presented for difficulty ambulating, generalized weakness. Patient is accompanied by his was able to give a history. Patient himself is alert but is status post trach and unable to speak. He has history of metastatic brain cancer, believes that his primary cancer is long. He had been on steroids but this was completed yesterday. He follows with radiation oncology and general oncology. He has not had brain surgery. - Related Data Home Medications Medication Instructions Recorded Confirmed Levothyroxine Sodium 150 mcg PO DAILY 10/11/20 10/30/20 Atenolol [Tenormin] 50 mg PO DAILY 10/23/20 10/30/20 Nystatin 100,000 Unit/ml Susp 500,000 unit PO QID 10/23/20 10/30/20 [Mycostatin Oral Susp] Atorvastatin [Lipitor] 40 mg PO HS 10/30/20 10/30/20 Multivitamins, Thera [Multivitamin 1 tab PO HS 10/30/20 10/30/20 (formulary)] Previous Rx's Medication Instructions Recorded Acetaminophen Tab [Tylenol] 650 mg PO Q6HR PRN tab 10/13/20 Pantoprazole [Protonix] 40 mg PO AC-BID 14 Days #28 10/13/20 tablet. Aspirin 81 mg PO DAILY 30 Days #30 chew 10/24/20 Folic Acid 1 mg PO DAILY@1200 30 Days #30 tab 10/24/20 Insulin Detemir (Levemir) [Levemir] 15 unit SQ HS 30 Days #4 syr 10/24/20 Thiamine [Vitamin B-1] 100 mg PO DAILY@1200 30 Days #30 10/24/20 tab Allergies Allergy/AdvReac Type Severity Reaction Status Date / Time No Known Allergies Allergy Verified 10/30/20 18:14 Review of Systems ROS Statement: Those systems with pertinent positive or pertinent negative responses have been documented in the HPI. ROS Other: All systems not noted in ROS Statement are negative. Past Medical History Past Medical History: Cancer, Hypertension, Thyroid Disorder Additional Past Medical History / Comment(s): Pt recently admitted to [facility] with recurrent falls/R leg weakness 2ndary to brain stem lesions/multiple brain lesions, hyponatremia. 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 Past Anesthesia/Blood Transfusion Reactions: No Reported Reaction Past Psychological History: No Psychological Hx Reported Smoking Status: Former smoker Past Alcohol Use History: Daily Past Drug Use History: None Reported - Past Family History Father Family Medical History: Myocardial Infarction ([place]) Additional Family Medical History / Comment(s): Father of a [place] at the age of 58yrs. Mother Family Medical History: CVA/TIA Additional Family Medical History / Comment(s): Mother is alive and is 96yrs old. General Exam Limitations: language barrier General appearance: alert, in no apparent distress Head exam: Present: atraumatic, normocephalic Eye exam: Present: normal appearance, PERRL ENT exam: Present: mucous membranes dry Respiratory exam: Present: normal lung sounds bilaterally. Absent: respiratory distress, wheezes, stridor Cardiovascular Exam: Present: regular rate, normal rhythm GI/Abdominal exam: Present: soft. Absent: distended, tenderness, guarding Neurological exam: Present: alert, other (Patient is able to move both lower extremities although he is weak bilaterally. Upper extremities are strong, 5 out of 5.) Skin exam: Present: warm, dry, intact. Absent: cyanosis, diaphoretic Course Vital Signs 10/30/20 10/30/20 17:16 19:59 Temperature 99.5 F Pulse Rate 70 92 Respiratory 18 18 Rate Blood Pressure 126/82 120/84 O2 Sat by Pulse 98 92 L Oximetry EKG Findings - EKG Comments: EKG Findings:: EKG: Normal sinus rhythm, no ST segment elevation, rate of 68, CT interval 192, QRS duration 98, QTC 452 Medical Decision Making - Medical Decision Making CT showing similar exam, no intracranial hemorrhage or metastatic disease. Chest x-ray concerning for bilateral pneumonia. No fever, no leukocytosis however antibiotics are initiated for this patient whose states that he has had increased sputum production. Case discussed with Dr. Smith who will admit. - Lab Data Result diagrams: 10/30/20 18:15 10/30/20 18:15 Lab Results 10/30/20 10/30/20 10/30/20 Range/Units 18:15 18:15 18:15 WBC 3.8 (3.8-10.6) k/uL RBC 4.45 (4.30-5.90) m/uL Hgb 13.5 (13.0-17.5) gm/dL Hct 38.9 L (39.0-53.0) % MCV 87.6 (80.0-100.0) fL MCH 30.2 (25.0-35.0) pg MCHC 34.5 (31.0-37.0) g/dL RDW 16.2 H (11.5-15.5) % Plt Count 122 L (150-450) k/uL MPV 7.0 Neutrophils % 81 % Lymphocytes % 14 % Monocytes % 3 % Eosinophils % 1 % Basophils % 0 % Neutrophils # 3.1 (1.3-7.7) k/uL Lymphocytes # 0.5 L (1.0-4.8) k/uL Monocytes # 0.1 (0-1.0) k/uL Eosinophils # 0.0 (0-0.7) k/uL Basophils # 0.0 (0-0.2) k/uL Manual Slide Review Performed Anisocytosis Slight PT 10.3 (9.0-12.0) sec INR 1.0 (<1.2) APTT 19.3 L (22.0-30.0) sec Sodium 135 L (137-145) mmol/L Potassium 4.0 (3.5-5.1) mmol/L Chloride 103 (98-107) mmol/L Carbon Dioxide 26 (22-30) mmol/L Anion Gap 6 mmol/L BUN 20 (9-20) mg/dL Creatinine 0.90 (0.66-1.25) mg/dL Est GFR (CKD-EPI)AfAm >90 (>60 ml/min/1.73 sqM) Est GFR (CKD-EPI)NonAf 85 (>60 ml/min/1.73 sqM) Glucose 157 H (74-99) mg/dL Plasma Lactic Acid Curtis (0.7-2.0) mmol/L Calcium 8.5 (8.4-10.2) mg/dL Magnesium 1.8 (1.6-2.3) mg/dL Total Bilirubin 0.8 (0.2-1.3) mg/dL AST 29 (17-59) U/L ALT 44 (4-49) U/L Alkaline Phosphatase 70 (38-126) U/L Troponin I (0.000-0.034) ng/mL Total Protein 5.3 L (6.3-8.2) g/dL Albumin 2.9 L (3.5-5.0) g/dL 10/30/20 10/30/20 Range/Units 18:15 18:15 WBC (3.8-10.6) k/uL RBC (4.30-5.90) m/uL Hgb (13.0-17.5) gm/dL Hct (39.0-53.0) % MCV (80.0-100.0) fL MCH (25.0-35.0) pg MCHC (31.0-37.0) g/dL RDW (11.5-15.5) % Plt Count (150-450) k/uL MPV Neutrophils % % Lymphocytes % % Monocytes % % Eosinophils % % Basophils % % Neutrophils # (1.3-7.7) k/uL Lymphocytes # (1.0-4.8) k/uL Monocytes # (0-1.0) k/uL Eosinophils # (0-0.7) k/uL Basophils # (0-0.2) k/uL Manual Slide Review Anisocytosis PT (9.0-12.0) sec INR (<1.2) APTT (22.0-30.0) sec Sodium (137-145) mmol/L Potassium (3.5-5.1) mmol/L Chloride (98-107) mmol/L Carbon Dioxide (22-30) mmol/L Anion Gap mmol/L BUN (9-20) mg/dL Creatinine (0.66-1.25) mg/dL Est GFR (CKD-EPI)AfAm (>60 ml/min/1.73 sqM) Est GFR (CKD-EPI)NonAf (>60 ml/min/1.73 sqM) Glucose (74-99) mg/dL Plasma Lactic Acid Curtis 1.4 (0.7-2.0) mmol/L Calcium (8.4-10.2) mg/dL Magnesium (1.6-2.3) mg/dL Total Bilirubin (0.2-1.3) mg/dL AST (17-59) U/L ALT (4-49) U/L Alkaline Phosphatase (38-126) U/L Troponin I 0.018 (0.000-0.034) ng/mL Total Protein (6.3-8.2) g/dL Albumin (3.5-5.0) g/dL Disposition Clinical Impression: Small cell lung cancer, Brain metastasis, Lower extremity weakness, Pneumonia Disposition: ADMITTED IP TO THIS [facility] Condition: Stable Is patient prescribed a controlled substance at d/c from ED?: No Referrals: [facility],Clinic [Primary Care Provider] - 1-2 days Decision to Admit Reason: Admit from EC Decision Date: 10/30/20 Decision Time: 21:16
[2020-10-30 18:31] LABS: Anisocytosis Slight; Basophils % (A) 0 %; Eosinophils % (A) 1 %; HCT 38.9 % (39.0-53.0); HGB 13.5 gm/dL (13.0-17.5); Lymphocytes # (A) 0.5 k/uL (1.0-4.8); Lymphocytes % (A) 14 %; MCH 30.2 pg (25.0-35.0); MCHC 34.5 g/dL (31.0-37.0); MCV 87.6 fL (80.0-100.0); Monocytes # (A) 0.1 k/uL (0-1.0); Monocytes % (A) 3 %; Neutrophils # (A) 3.1 k/uL (1.3-7.7); Neutrophils % (A) 81 %; Platelet Count 122 k/uL (150-450); RBC 4.45 m/uL (4.30-5.90); RDW 16.2 % (11.5-15.5); WBC 3.8 k/uL (3.8-10.6)
[2020-10-30 18:40] LABS: ALT 44 U/L (4-49); AST 29 U/L (17-59); African American GFR (CKD) >90 (>60 ml/min/1.73 sqM); Albumin 2.9 g/dL (3.5-5.0); Alkaline Phosphatase 70 U/L (38-126); Anion Gap 6 mmol/L; Blood Urea Nitrogen 20 mg/dL (9-20); Calcium 8.5 mg/dL (8.4-10.2); Carbon Dioxide 26 mmol/L (22-30); Chloride 103 mmol/L (98-107); Glucose 157 mg/dL (74-99); Magnesium 1.8 mg/dL (1.6-2.3); Non-African American GFR(CKD) 85 (>60 ml/min/1.73 sqM); Sodium 135 mmol/L (137-145); Total Bilirubin 0.8 mg/dL (0.2-1.3); Total Protein 5.3 g/dL (6.3-8.2)
[2020-10-30 18:52] LABS: Prothrombin Time 10.3 sec (9.0-12.0)
[2020-10-30 18:57] LABS: Partial Thromboplastin Time 19.3 sec (22.0-30.0)
--- NOTE | 2020-10-30 19:23 | XR ---
EXAMINATION TYPE: XR chest 2V DATE OF EXAM: 10/30/2020 COMPARISON: Chest x-ray 10/23/2020 HISTORY: Weakness TECHNIQUE: Frontal and lateral views of the chest are obtained. FINDINGS: Patchy bilateral airspace disease is present. No evident pneumothorax or pleural effusion. Cardiac mediastinal silhouette is stable. IMPRESSION: Correlate for pneumonia.
[2020-10-30] MEDS ORDERED: NALOXONE 0.4 MG/ML 1 ML VIAL IV PRN (20:42)
[2020-10-30] MEDS ORDERED: ALPRAZolam 0.25 MG TAB PO PRN (20:44)
[2020-10-30] MEDS ORDERED: HYDROcodone/APAP 5-325MG 1 EACH TAB PO PRN (20:44)
--- NOTE | 2020-10-30 21:03 | CT ---
EXAMINATION TYPE: CT brain wo con DATE OF EXAM: 10/30/2020 COMPARISON: CT brain 10/23/2020 HISTORY: weakness hx brain mets CT DLP: 1200 mGycm Automated exposure control for dose reduction was used. Helical imaging through the brain FINDINGS: Multiple metastatic foci are again noted within the brain as on prior exam. Cortical atrophy is noted . There is no midline shift. No evident hemorrhage. Inflammatory change present within the sphenoid s inus. Periventricular white matter shows patchy low attenuation. Ventricles are prominent as on prior exam. IMPRESSION: METASTATIC DISEASE SHOWS A SIMILAR APPEARANCE TO PRIOR EXAM
[2020-10-30] MEDS ORDERED: AZITHROMYCIN 500 MG in SODIUM CHLORIDE 0.9% 250 ML IVPB STA (21:08)
[2020-10-30 21:36] LABS: Glucose,Whole Blood 124 mg/dL (75-99)
--- NOTE | 2020-10-30 22:50 | HP ---
HISTORY AND PHYSICAL DATE OF SERVICE: 10/30/2020 CHIEF COMPLAINT: Weakness. HISTORY OF PRESENT ILLNESS: This 70-year-old gentleman with a past medical history of multiple medical problems, including history of diabetes mellitus, type 2, history of hypertension, history of hypothyroidism, history of laryngectomy, history of throat cancer and nasal reconstruction, history of nicotine dependence, being followed by Dr. Ayush Pat in the outpatient setting, was recently admitted with change in mental status thought to be because of acute metabolic encephalopathy because of uncontrolled diabetes mellitus, type 2. 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 The patient was receiving radiation. Today the patient is complaining of generalized weakness. The patient's reports that the patient is unable to speak because of the tracheostomy, but the patient has been steroids, which he completed yesterday. Dr. Chaudhari of Radiation Oncology is also following the patient closely. A neurosurgery consultation has not been obtained so far. The patient has been seen by the hematology/oncology team. There is no history of any fever, rigor or chills. No history of trauma. A detailed history could not be taken from the patient. Most of the history is taken from my discussion with the ER physician as well as discussion with the patient's at the bedside. PAST MEDICAL HISTORY: History of lung cancer with metastases to the brain, hypertension, hypothyroidism, history of recurrent falls, history of laryngectomy/thyroidectomy, neck and throat and nasal reconstruction at [facility], history of claustrophobia, history of nicotine dependence. HOME MEDICATIONS: Vitamin B1, Protonix, nystatin, multivitamins, levothyroxine, Levemir, folic acid, Tenormin, aspirin, Tylenol, Lipitor. ALLERGIES: NONE. FAMILY HISTORY: History of myocardial infarction in the family. SOCIAL HISTORY: No history of smoking. No history of alcohol intake. Review of systems could not be taken because of the patient's tracheostomy and baseline. PHYSICAL EXAMINATION: Pulse is 92, blood pressure 120/84, respiration 18, temperature 99.2, pulse ox 92% . Patient is conscious, able to follow commands. HEENT: Conjunctivae normal. NECK: Tracheostomy. CARDIOVASCULAR SYSTEM: S1, S2 muffled. RESPIRATORY SYSTEM: Breath sounds diminished at the bases. A few scattered rhonchi and crackles. ABDOMEN: Soft, non-tender. No mass palpable. LEGS: No edema. No swelling. NERVOUS SYSTEM: Higher functions as mentioned earlier. Moves all 4 limbs. No focal motor or sensory deficit. LYMPHATICS: No lymph node palpable in neck, axillae or groin. SKIN: No ulcer, rash, bleeding. JOINTS: No active deforming arthropathy. LABS: WBC 3.8, hemoglobin 13.5, platelets 122, and lymphocytes 0.5. Sodium is 135. Glucose 157. ASSESSMENT: 1. Gait dysfunction and weakness, possibly secondary to cerebral metastases. 2. Thrombocytopenia. 3. Hyponatremia. 4. History of recent change in mental status, metabolic acidosis secondary to uncontrolled diabetes mellitus, type 2. 5. History of recent hyperosmolar coma induced by steroids. 6. 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 7. Hypertension. 8. Hypothyroidism. 9. Gait dysfunction. 10.History of laryngectomy, thyroidectomy, and throat and nasal reconstruction. 11.History of nicotine dependence. 12.History of claustrophobia. 13.FULL CODE. RECOMMENDATIONS AND DISCUSSION: In this 70-year-old gentleman who presented with multiple complex medical issues, we will monitor the patient closely, continue the current medications, continue symptomatic treatment. CT scan of the brain was done; official report is pending at this time. A chest x-ray, which I reviewed personally, showed suspicious pneumonia bilaterally, left more than the right. I would recommend broad-spectrum IV antibiotics and consult Hematology/Oncology as well as Radiation Oncology. Otherwise, resume the home medications when they are confirmed. DVT prophylaxis. PT/OT evaluation. Prognosis is guarded because of multiple complex medical issues. Further recommendations to follow. A copy of this dictation is being forwarded to Dr. Pat, who is the primary physician. MMODL / IJN: [id number] /
[2020-10-31 00:19] LABS: Glucose,Whole Blood 148 mg/dL (75-99)
[2020-10-31] MEDS: ATORVASTATIN 40 MG TAB PO SCH ×2 (00:23→20:08)
[2020-10-31] MEDS: MULTIVITAMINS, THERA 1 EACH TAB PO SCH ×2 (00:23→20:08)
[2020-10-31] MEDS: INSULIN ASPART (NovoLOG) 100 UNIT/ML VIAL SQ SCH ×5 (00:24→20:08)
[2020-10-31] MEDS: NYSTATIN 100,000 UNIT/ML SUSP 500,000 UNIT/5 ML CUP PO SCH ×5 (00:27→21:22)
[2020-10-31] MEDS: INSULIN DETEMIR (LEVEMIR) 100 UNIT/ML SYR SQ SCH ×2 (00:27→21:22)
[2020-10-31] MEDS: LEVOTHYROXINE 75 MCG TAB PO SCH (04:44)
[2020-10-31 06:16] LABS: Anisocytosis Slight; Basophils % (A) 1 %; Eosinophils % (A) 0 %; HCT 39.4 % (39.0-53.0); HGB 13.7 gm/dL (13.0-17.5); Lymphocytes # (A) 0.7 k/uL (1.0-4.8); Lymphocytes % (A) 20 %; MCH 30.2 pg (25.0-35.0); MCHC 34.9 g/dL (31.0-37.0); MCV 86.7 fL (80.0-100.0); Mean Platelet Volume 6.9; Monocytes # (A) 0.1 k/uL (0-1.0); Monocytes % (A) 2 %; Neutrophils # (A) 2.5 k/uL (1.3-7.7); Neutrophils % (A) 77 %; Platelet Count 113 k/uL (150-450); RBC 4.54 m/uL (4.30-5.90); RDW 16.4 % (11.5-15.5); WBC 3.3 k/uL (3.8-10.6)
[2020-10-31 06:25] LABS: Potassium 3.6 mmol/L (3.5-5.1)
[2020-10-31 06:26] LABS: African American GFR (CKD) >90 (>60 ml/min/1.73 sqM); Anion Gap 4 mmol/L; Blood Urea Nitrogen 17 mg/dL (9-20); Calcium 8.4 mg/dL (8.4-10.2); Carbon Dioxide 25 mmol/L (22-30); Chloride 104 mmol/L (98-107); Glucose 103 mg/dL (74-99); Non-African American GFR(CKD) >90 (>60 ml/min/1.73 sqM); Sodium 133 mmol/L (137-145)
[2020-10-31] MEDS: atenoloL 50 MG TAB PO SCH (07:39)
[2020-10-31 07:40] LABS: Glucose,Whole Blood 86 mg/dL (75-99)
[2020-10-31] MEDS: PANTOPRAZOLE 40 MG TABLET PO SCH ×2 (07:40→17:08)
[2020-10-31 09:43] LABS: Appearance,Urine Clear (Clear); Bilirubin,Urine Negative (Negative); Blood,Urine Negative (Negative); Color,Urine Yellow; Glucose,Urine (UA) Negative (Negative); Hyaline Casts,Urine 1 /lpf (0-2); Ketones,Urine Negative (Negative); Leukocyte Esterase,Urine Negative (Negative); Mucus,Urine Occasional /hpf; Nitrite,Urine Negative (Negative); PH, Urine 5.5 (5.0-8.0); Protein,Urine 1+ (Negative); RBC,Urine 2 /hpf (0-5); Specific Gravity,Urine 1.026 (1.001-1.035); Urobilinogen,Urine <2.0 mg/dL (<2.0); WBC,Urine 2 /hpf (0-5)
[2020-10-31 11:42] LABS: Glucose,Whole Blood 128 mg/dL (75-99)
[2020-10-31] MEDS: THIAMINE 100 MG TAB PO SCH (11:46)
[2020-10-31] MEDS: FOLIC ACID 1 MG TAB PO SCH (11:46)
[2020-10-31] MEDS: AZITHROMYCIN 500 MG TAB PO SCH (11:46)
--- NOTE | 2020-10-31 13:10 | P.CNPUL ---
History of Present Illness Consult date: 10/31/20 Requesting physician: Candie Smith Reason for consult: dyspnea, COPD, lung mass, abnormal CXR/CT Chief complaint: Shortness of breath. History of present illness: Pulmonary consult dated 10/31/2020. 71-year-old male, who presents to the emergency department on October 30, with weakness, and shortness of breath. Apparently the patient was unable to give history in part because he has a tracheostomy tube in place. The patient has a history of small cell lung cancer. He was initially diagnosed by my partner in January 2020. He has small cell lung cancer. It is metastatic to the brain. He apparently had been on steroids recently been completed and the day before his admission in the emergency department. He does follow-up with Dr. Abiodun Chaudhari in radiation oncology. The patient was in his room. He was not on any supplemental oxygen. Tracheostomy tube in place. His room air saturations are 97%. He was not having any respiratory distress whatsoever. He really could not give me much of the history other than to say that he was weak and a bit short of breath. In addition to lung cancer, he has a history of hypertension, hypothyroidism, lower extremity weakness, hyponatremia, history of laryngeal and glottic squamous cell cancer, with laryngectomy thyroidectomy and neck helio nstruction surgery in 2019. More recently in January 2020 was diagnosed with small cell lung cancer, status post chemotherapy, and radiation therapy to the brain. He also has a history of skin cancer. White count 3.3, hemoglobin 13.7, hematocrit 39.4, and platelet count 113,000. Sodium 133, potassium 3.6, chlorides 104, CO2 25, anion gap 4, BUN and creatinine were 17 and 0.78. Chest x-ray shows patchy bilateral airspace disease which might be consistent with pneumonia. Review of Systems REVIEW OF SYSTEMS: CONSTITUTIONAL: Weakness. NEUROLOGIC: [ Negative.] HEENT: [ Negative.] CARDIAC: [Negative.] PULMONARY: Mild shortness of breath. GI: [Negative.] : [Negative.] RHEUMATOLOGIC: [ Negative.] IMMUNOLOGIC: [ Negative.] ENDOCRINE: [Negative. ] DERMATOLOGIC: [Negative.] Past Medical History Past Medical History: Cancer, Hypertension, Thyroid Disorder Additional Past Medical History / Comment(s): Pt recently admitted to [facility] with recurrent falls/R leg weakness 2ndary to brain stem lesions/multiple brain lesions, hyponatremia. Other hx: 08/2019 laryngeal/glottic squamous cell cancer with laryngectomy/thyroidectomy/neck/throat and nasal reconstruction, 01/2020 small cell R lung cancer with chemo, 09/11/20 lung to brain mets/10 radiation treatments/now has falls/increased R leg weakness, past skin cancer with removals History of Any Multi-Drug Resistant Organisms: None Reported Additional Past Surgical History / Comment(s): [facility]: total laryngectomy/thyroidectomy, throat/neck/nasal resection with tracheostomy/prosthetic speaking valve, 02/10/20 brochoscopy with BAL/brushings/biopsies, colonoscopy. Past Anesthesia/Blood Transfusion Reactions: No Reported Reaction Past Psychological History: No Psychological Hx Reported Additional Psychological History / Comment(s): CLAUSTROPHOBIA. Pt resides with his spouse. He has a borrowed walker which is too wide for him and a cane but does not use them. He no longer drives, his spouse takes him to app. Pt is a and receiving home care, PT/OT and nurse thru [facility]. Pt has a cane and a walker. Smoking Status: Former smoker Past Alcohol Use History: Daily Additional Past Alcohol Use History / Comment(s): Pt started smoking in 1959 and quit in 1979. He was a heavy drinker-6 beers/day but recently quit all together. Past Drug Use History: None Reported - Past Family History Father Family Medical History: Myocardial Infarction (NH) Additional Family Medical History / Comment(s): Father of a NH at the age of 58yrs. Mother Family Medical History: CVA/TIA Additional Family Medical History / Comment(s): Mother is alive and is 96yrs o ld. Medications and Allergies Home Medications Medication Instructions Recorded Confirmed Type Levothyroxine Sodium 150 mcg PO DAILY 10/11/20 10/30/20 History Acetaminophen Tab [Tylenol] 650 mg PO Q6HR PRN tab 10/13/20 10/30/20 Rx Pantoprazole [Protonix] 40 mg PO AC-BID 14 Days #28 10/13/20 10/30/20 Rx tablet. Atenolol [Tenormin] 50 mg PO DAILY 10/23/20 10/30/20 History Nystatin 100,000 Unit/ml Susp 500,000 unit PO QID 10/23/20 10/30/20 History [Mycostatin Oral Susp] Aspirin 81 mg PO DAILY 30 Days #30 chew 10/24/20 10/30/20 Rx Folic Acid 1 mg PO DAILY@1200 30 Days #30 tab 10/24/20 10/30/20 Rx Insulin Detemir (Levemir) [Levemir] 15 unit SQ HS 30 Days #4 syr 10/24/20 10/30/20 Rx Thiamine [Vitamin B-1] 100 mg PO DAILY@1200 30 Days #30 10/24/20 10/30/20 Rx tab Atorvastatin [Lipitor] 40 mg PO HS 10/30/20 10/30/20 History Multivitamins, Thera [Multivitamin 1 tab PO HS 10/30/20 10/30/20 History (formulary)] Allergies Allergy/AdvReac Type Severity Reaction Status Date / Time No Known Allergies Allergy Verified 10/30/20 18:14 Physical Exam Osteopathic Statement: *. No significant issues noted on an osteopathic structural exam other than those noted in the History and Physical/Consult. Vitals: Vital Signs Temp Pulse Pulse Resp BP BP Pulse Ox 10/31/20 08:00 98.4 F 85 16 111/75 92 L 10/31/20 05:42 98.8 F 10/31/20 00:55 97.6 F 82 20 119/83 90 L 10/30/20 19:59 92 18 120/84 92 L 10/30/20 17:16 99.5 F 70 18 126/82 98 Intake and Output 10/30/20 10/31/20 10/31/20 22:59 06:59 14:59 Other: Voiding Method Incontinent External Catheter # Voids 1 Weight 77.111 kg 77.111 kg No acute distress, oriented 3. Unable to give history because of his previous tracheotomy and laryngectomy. HEENT examination is grossly unremarkable. Neck supple. Full range of motion. No adenopathy thyromegaly or neck vein distention. Midline tracheotomy is noted. Cardiovascular examination reveals regular rhythm rate. S1-S2 normal. No S3 or S4. No discernible murmur noted. Heart rate 85 bpm. Lungs reveal mostly clear breath sounds. Scattered rhonchi are noted. No wheezes or crackles. Breath sounds equal bilaterally. Abdomen soft bowel sounds are heard. No masses or tenderness. Extremities are intact. No cyanosis clubbing or edema. Skin is without rash or lesion. Neurologic examination is brief but nonfocal. Results - Laboratory Findings CBC and BMP: 10/31/20 05:51 10/31/20 05:51 PT/INR, D-dimer PT 10.3 sec (9.0-12.0) 10/30/20 18:15 INR 1.0 (<1.2) 10/30/20 18:15 Abnormal lab findings: Abnormal Labs 10/30/20 10/30/20 10/30/20 18:15 18:15 18:15 WBC Hct 38.9 L RDW 16.2 H Plt Count 122 L Lymphocytes # 0.5 L APTT 19.3 L Sodium 135 L Glucose 157 H POC Glucose (mg/dL) Total Protein 5.3 L Albumin 2.9 L Urine Protein Urine Mucus 10/30/20 10/31/20 10/31/20 21:34 00:16 05:51 WBC 3.3 L Hct RDW 16.4 H Plt Count 113 L Lymphocytes # 0.7 L APTT Sodium Glucose POC Glucose (mg/dL) 124 H 148 H Total Protein Albumin Urine Protein Urine Mucus 10/31/20 10/31/20 10/31/20 05:51 09:00 11:41 WBC Hct RDW Plt Count Lymphocytes # APTT Sodium 133 L Glucose 103 H POC Glucose (mg/dL) 128 H Total Protein Albumin Urine Protein 1+ H Urine Mucus Occasional H - Diagnostic Findings Chest x-ray: image reviewed Assessment and Plan Assessment: Probable bilateral community-acquired pneumonia. Weakness, likely secondary to above. History of small cell lung cancer, with metastases to the brain, status post chemotherapy and radiation therapy, diagnosed back in January 2020. 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 History of surgical hypothyroidism. Hyperlipidemia. History of hypertension. History of diabetes mellitus. 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 History of skin cancer. Prior history of tobacco use. Plan: Plan dated 10/31/2020. Currently, the patient's on Zithromax and Rocephin. He's not having any issues with his breathing. His room air saturations 97%. Follow make recommendations were appropriate. The patient has received chemotherapy and radiation therapy for his metastatic small cell lung cancer. Additional recommendations and suggestions are forthcoming. Prognosis is guarded. Time with Patient: Greater than 30
--- NOTE | 2020-10-31 14:23 | P.CONS ---
History of Present Illness - Reason for Consult Consult date: 10/31/20 metastatic cancer Requesting physician: Chris E Sheet - Chief Complaint Mental status changes and weakness - History of Present Illness Abhinav was initially being evaluated after diagnosis of squamous cell cancer of Larynx. He presented with dysphona and feeling of a "lump: in L cervical area. He had CT scan of neck and referred to Dr Wright, biopsy of left subglo tic mass, as well as, L vocal cord revealed well differentiated squamous cell carcinoma. He was evaluated by Dr Simmons , PET Scan performed at [facility] revealing increased uptake at at L vocal cord, but not subglotic mass. He denied anorexia or weight loss, smoked 1 PPD X 30 years, quit smoking 20 years ago, he consumes 3-4 beers daily, he worked in a [employer] factory. 01/13/20: Had total laryngectomy with bilateral neck disections on 08/10/19 (Dr Simmons) at [facility] : T3 (2.7X1.3X0.7cm Ca) found, margins negative, all LN negative (67) . He was given adjuvant Radtiaon therapy (Dr Chaudhari). When seen today, he is C/O difficulty clearing throught with thick mucus, as well as, bilateral edema in submandibular area. 02/15/20: Had PET Scan : new R hilar mass with mediastinal lymphadenopathy, suspected liver & bone mets > had diagnostic bronchoscopy by Dr Woo on 02/10/20 revealing small cell carcinoma !!. He is C/O fatigue & SOB, no hemoptysis. 03/08/20: Status post cycle one carbo/ [id number]. 03/14/20: Tolerated cycle # 1 of Carboplatinum/Etoposide/Tecentriq Chemotherapy very well > very mild nausea X 1 > developing alopecia 04/27/20: Feels well, tolerating Chemotherapy well (minimal grade I nausea), mild SOB 05/31/20: PET Scan 05/29/20 with response to treatment evenced by marked in terval improvement in hilar and thoracic adenopathy, as well as, no areas of abnormal hypermetabolic uptake. Interval progression of osseous disease without abnormal uptake. He will continue on immune therapy. Couple bouts of diarrhea after fast food but improved. 07/14/20: Feels well, tolerating Tecentriq well, last PET Scan: complete metabolic response 09/08/20: Feels well, C/O R sided headaches X 3 weeks, no visual symptoms or loss of balance He had his last tecentriq in September, was seen in hospital with concern of progressive brain mets versus bleed. review and team discussion determined out patient neurosurgery followup, he was seen in office by myself last week, still not feeling great and per still forgetfull and periods of confusion. Patients stated that they stopped his dexamethasone on Friday, 4mg was dose, and by Friday his legs just "gave out". He was scheduled to see neurology and neurosurgery and she would like to keep that appointment however the patient is still very weak and its unknown if this will be safe. Review of Systems ROS unobtainable: due to mental status Past Medical History Past Medical History: Cancer, Hypertension, Thyroid Disorder Additional Past Medical History / Comment(s): Pt recently admitted to [facility] with recurrent falls/R leg weakness 2ndary to brain stem lesions/multiple brain lesions, hyponatremia. 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 Past Anesthesia/Blood Transfusion Reactions: No Reported Reaction Past Psychological History: No Psychological Hx Reported Additional Psychological History / Comment(s): CLAUSTROPHOBIA. Pt resides with his spouse. He has a borrowed walker which is too wide for him and a cane but does not use them. He no longer drives, his [facility] [employer]. Pt is a and receiving home care, PT/OT and nurse thru [facility]. Pt has a cane and a walker. Smoking Status: Former smoker Past Alcohol Use History: Daily Additional Past Alcohol Use History / Comment(s): Pt started smoking in 1959 and quit in 1979. He was a heavy drinker-6 beers/day but recently quit all together. Past Drug Use History: None Reported - Past Family History Father Family Medical History: Myocardial Infarction ([place]) Additional Family Medical History / Comment(s): Father of a NE at the age of 58yrs. Mother Family Medical History: CVA/TIA Additional Family Medical History / Comment(s): Mother is alive and is 96yrs old. Medications and Allergies Home Medications Medication Instructions Recorded Confirmed Type Levothyroxine Sodium 150 mcg PO DAILY 10/11/20 10/30/20 History Acetaminophen Tab [Tylenol] 650 mg PO Q6HR PRN tab 10/13/20 10/30/20 Rx Pantoprazole [Protonix] 40 mg PO AC-BID 14 Days #28 10/13/20 10/30/20 Rx tablet. Atenolol [Tenormin] 50 mg PO DAILY 10/23/20 10/30/20 History Nystatin 100,000 Unit/ml Susp 500,000 unit PO QID 10/23/20 10/30/20 History [Mycostatin Oral Susp] Aspirin 81 mg PO DAILY 30 Days #30 chew 10/24/20 10/30/20 Rx Folic Acid 1 mg PO DAILY@1200 30 Days #30 tab 10/24/20 10/30/20 Rx Insulin Detemir (Levemir) [Levemir] 15 unit SQ HS 30 Days #4 syr 10/24/20 Rx Thiamine [Vitamin B-1] 100 mg PO DAILY@1200 30 Days #30 10/24/20 10/30/20 Rx tab Atorvastatin [Lipitor] 40 mg PO HS 10/30/20 10/30/20 History Multivitamins, Thera [Multivitamin 1 tab PO HS 10/30/20 10/30/20 History (formulary)] Allergies Allergy/AdvReac Type Severity Reaction Status Date / Time No Known Allergies Allergy Verified 10/30/20 18:14 Physical Exam Vitals: Vital Signs Temp Pulse Pulse Resp BP BP Pulse Ox 10/31/20 14:00 98.1 F 73 17 112/76 93 L 10/31/20 08:00 98.4 F 85 16 111/75 92 L 10/31/20 05:42 98.8 F 10/31/20 00:55 97.6 F 82 20 119/83 90 L 10/30/20 19:59 92 18 120/84 92 L 10/30/20 17:16 99.5 F 70 18 126/82 98 Intake and Output 10/30/20 10/31/20 10/31/20 22:59 06:59 14:59 Other: Voiding Method Incontinent External Catheter # Voids 1 Weight 77.111 kg 77.111 kg - Constitutional General appearance: cooperative - EENT Eyes: poor dentition ENT: hard of hearing - Neck Neck: normal ROM - Respiratory Respiratory: bilateral: diminished - Cardiovascular Rhythm: regular - Gastrointestinal General gastrointestinal: soft - Integumentary Integumentary: pale - Neurologic inconsistent following - Musculoskeletal Musculoskeletal: generalized weakness Results CBC & Chem 7: 10/31/20 05:51 10/31/20 05:51 Labs: Abnormal Lab Results - Last 24 Hours (Table) 10/30/20 10/30/20 10/30/20 Range/Units 18:15 18:15 18:15 WBC (3.8-10.6) k/uL Hct 38.9 L (39.0-53.0) % RDW 16.2 H (11.5-15.5) % Plt Count 122 L (150-450) k/uL Lymphocytes # 0.5 L (1.0-4.8) k/uL APTT 19.3 L (22.0-30.0) sec Sodium 135 L (137-145) mmol/L Glucose 157 H (74-99) mg/dL POC Glucose (mg/dL) (75-99) mg/dL Total Protein 5.3 L (6.3-8.2) g/dL Albumin 2.9 L (3.5-5.0) g/dL Urine Protein (Negative) Urine Mucus (None) /hpf 10/30/20 10/31/20 10/31/20 Range/Units 21:34 00:16 05:51 WBC 3.3 L (3.8-10.6) k/uL Hct (39.0-53.0) % RDW 16.4 H (11.5-15.5) % Plt Count 113 L (150-450) k/uL Lymphocytes # 0.7 L (1.0-4.8) k/uL APTT (22.0-30.0) sec Sodium (137-145) mmol/L Glucose (74-99) mg/dL POC Glucose (mg/dL) 124 H 148 H (75-99) mg/dL Total Protein (6.3-8.2) g/dL Albumin (3.5-5.0) g/dL Urine Protein (Negative) Urine Mucus (None) /hpf 10/31/20 10/31/20 10/31/20 Range/Units 05:51 09:00 11:41 WBC (3.8-10.6) k/uL Hct (39.0-53.0) % RDW (11.5-15.5) % Plt Count (150-450) k/uL Lymphocytes # (1.0-4.8) k/uL APTT (22.0-30.0) sec Sodium 133 L (137-145) mmol/L Glucose 103 H (74-99) mg/dL POC Glucose (mg/dL) 128 H (75-99) mg/dL Total Protein (6.3-8.2) g/dL Albumin (3.5-5.0) g/dL Urine Protein 1+ H (Negative) Urine Mucus Occasional H (None) /hpf CT Scan - head: report reviewed Assessment and Plan Plan: CT Scan - head: report reviewed, image reviewed MRI - head: report reviewed, image reviewed Assessment and Plan Assessment: 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 = He underwent a course of adjuvant radiation finishing on November 04, 2019. = Shortly after his treatment, he was unfortunately diagnosed with extensive small cell lung cancer of the right upper lung. = He has undergone chemoimmunotherapy with excellent response. Recently presented with with brain metastases and underwent WBRT finishing on 09/27/2020. - Recently hospitalized due to weakness/falls. - Now Re-hospitalized for the same Plan: Brain metastases: - As detailed above, the patient's metastatic disease has responded quite well to radiotherapy. One lesion along the left caudate seemed to enlarge, but this is likely based on hemorrhagic conversion as opposed to disease progression. Hydrocephalus: - The patient does appear to have hydrocephalus, however I did discuss his case with radiology. They feel that none of the lesions appear to be obstructing outflow. This raises the possibility of NPH. Although the patient is not having all of the typical symptoms of hydrocephalus, this certainly could be contributing to his gait disturbance. Neurosurgical outpatient evaluation was plan, however the [facility], and this was made for today, but patient has now presented with repeated falls and clinically worsening - If possible to be transferred for evaluation this is first recommendation, however the [facility] does present with additional barrier. - Recommend Neurosurg evaluation jordin. Restart Dexamethasone at 4mg, if improved strength and can safely be discharge can go to outpatient appointment Physician Attest: I have completed the full history and physical and agree with above dictation, dictated as a scribe.
[2020-10-31] MEDS: dexAMETHasone 4 MG TAB PO SCH (15:42)
[2020-10-31 16:52] LABS: Glucose,Whole Blood 202 mg/dL (75-99)
[2020-10-31] MEDS ORDERED: dexAMETHasone 4 MG TAB PO ONE (19:00)
--- NOTE | 2020-10-31 19:53 | P.PN ---
Subjective This is a pleasant 70 years old male with multiple medical problems as above. Presents with inability to walk and generalized weakness. Please refer to oncology team note showing patient has recent history of laryngeal cancer and status post laryngectomy and tracheostomy is in place. 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 Patient is lying in bed, no significant complaint. He feels generally weak. Breathing is quiet, no coughing, no chest pain. He is hemodynamically stable and not showing only mild low platelets at 113 gait. Patient is suspected to have bilateral pneumonia and that's why he ceftriaxoneandZithromaxandpulmonaryteamonthecasehoweverheisonroomairwi f[id number]%. Oncology team recommended neurosurgical evaluation, however as per staff this can be done as an outpatient. at bedside and also wants to go as an outpatient as he has an appointment with neurosurgery on 11/02. Patient also is currently on dexamethasone 4 mg. Objective - Vital Signs Vital signs: Vital Signs Temp 98.1 F 10/31/20 14:00 Pulse 73 10/31/20 14:00 Resp 17 10/31/20 14:00 BP 112/76 10/31/20 14:00 Pulse Ox 93 L 10/31/20 14:00 Intake & Output 10/30/20 10/31/20 10/31/20 18:59 06:59 18:59 Weight 77.111 kg 77.111 kg Other: Voiding Method Incontinent External Catheter # Voids 1 - Exam -GENERAL: The patient is alert and oriented, lethargic, not in any acute distress. Generally weak -HEENT: Pupils are round and equally reacting to light. EOMI. No scleral icterus. No conjunctival pallor. Normocephalic, atraumatic. No pharyngeal erythema. No thyromegaly. Tracheostomy is in place CARDIOVASCULAR: S1 and S2 present. No murmurs, rubs, or gallops. PULMONARY: Chest is clear to auscultation, no wheezing or crackles. ABDOMEN: Soft, nontender, nondistended, normoactive bowel sounds. No palpable organomegaly. MUSCULOSKELETAL: No joint swelling or deformity. EXTREMITIES: No cyanosis, clubbing, or pedal edema. NEUROLOGICAL: Gross neurological examination did not reveal any focal deficits. SKIN: No rashes. no petechiae. - Labs CBC & Chem 7: 10/31/20 05:51 10/31/20 05:51 Labs: Abnormal Lab Results - Last 24 Hours (Table) 10/30/20 10/30/20 10/30/20 Range/Units 18:15 18:15 18:15 WBC (3.8-10.6) k/uL Hct 38.9 L (39.0-53.0) % RDW 16.2 H (11.5-15.5) % Plt Count 122 L (150-450) k/uL Lymphocytes # 0.5 L (1.0-4.8) k/uL APTT 19.3 L (22.0-30.0) sec Sodium 135 L (137-145) mmol/L Glucose 157 H (74-99) mg/dL POC Glucose (mg/dL) (75-99) mg/dL Total Protein 5.3 L (6.3-8.2) g/dL Albumin 2.9 L (3.5-5.0) g/dL Urine Protein (Negative) Urine Mucus (None) /hpf 10/30/20 10/31/20 10/31/20 Range/Units 21:34 00:16 05:51 WBC 3.3 L (3.8-10.6) k/uL Hct (39.0-53.0) % RDW 16.4 H (11.5-15.5) % Plt Count 113 L (150-450) k/uL Lymphocytes # 0.7 L (1.0-4.8) k/uL APTT (22.0-30.0) sec Sodium (137-145) mmol/L Glucose (74-99) mg/dL POC Glucose (mg/dL) 124 H 148 H (75-99) mg/dL Total Protein (6.3-8.2) g/dL Albumin (3.5-5.0) g/dL Urine Protein (Negative) Urine Mucus (None) /hpf 10/31/20 10/31/20 10/31/20 Range/Units 05:51 09:00 11:41 WBC (3.8-10.6) k/uL Hct (39.0-53.0) % RDW (11.5-15.5) % Plt Count (150-450) k/uL Lymphocytes # (1.0-4.8) k/uL APTT (22.0-30.0) sec Sodium 133 L (137-145) mmol/L Glucose 103 H (74-99) mg/dL POC Glucose (mg/dL) 128 H (75-99) mg/dL Total Protein (6.3-8.2) g/dL Albumin (3.5-5.0) g/dL Urine Protein 1+ H (Negative) Urine Mucus Occasional H (None) /hpf 10/31/20 Range/Units 16:50 WBC (3.8-10.6) k/uL Hct (39.0-53.0) % RDW (11.5-15.5) % Plt Count (150-450) k/uL Lymphocytes # (1.0-4.8) k/uL APTT (22.0-30.0) sec Sodium (137-145) mmol/L Glucose (74-99) mg/dL POC Glucose (mg/dL) 202 H (75-99) mg/dL Total Protein (6.3-8.2) g/dL Albumin (3.5-5.0) g/dL Urine Protein (Negative) Urine Mucus (None) /hpf Assessment and Plan Assessment: Inability to walk, suspected secondary to hydrocephalus and brain metastasis is Small cell lung cancer with brain metastases status post radiotherapy Recent history of laryngeal cancer, status post tracheostomy Possible bilateral pneumonia Diabetes mellitus Mild acute hypoxic respiratory failure. Mild thrombocytopenia Plan: This is a pleasant 71 years old male with small cell lung cancer and brain metastases and possible hydrocephalus. Oncology team recommended neurosurgical evaluation which can be done as an outpatient. I discussed with staff also patient does not want him to be transferred but rather follow-up as an o utpatient in the office. The meantime continue with dexamethasone. Consult nephrology service Pulmonary service on the case for pneumonia however suspicion is low. Patient is currently on broad-spectrum antibiotic, namely gram-negative and atypical bacteria. Labs and medication were reviewed.. Continue same treatment. Continue with symptomatic treatment. Resume home medication. Monitor lytes and vitals. DVT and GI prophylaxis. Further recommendations as per clinical course of the patient DVT prophylaxis: Subcutaneous heparin GI Prophylaxis: Pepcid PT/OT: Pending Prognosis is guarded
[2020-10-31 20:04] LABS: Glucose,Whole Blood 239 mg/dL (75-99)
[2020-11-01] MEDS: LEVOTHYROXINE 75 MCG TAB PO SCH (05:29)
[2020-11-01 06:50] LABS: Glucose,Whole Blood 136 mg/dL (75-99)
[2020-11-01] MEDS: dexAMETHasone 4 MG TAB PO SCH (07:30)
[2020-11-01] MEDS: AZITHROMYCIN 500 MG TAB PO SCH (07:30)
[2020-11-01] MEDS: PANTOPRAZOLE 40 MG TABLET PO SCH ×2 (07:30→17:52)
[2020-11-01] MEDS: THIAMINE 100 MG TAB PO SCH (07:30)
[2020-11-01] MEDS: NYSTATIN 100,000 UNIT/ML SUSP 500,000 UNIT/5 ML CUP PO SCH ×4 (07:30→20:50)
[2020-11-01] MEDS: FOLIC ACID 1 MG TAB PO SCH (07:31)
[2020-11-01] MEDS: atenoloL 50 MG TAB PO SCH (07:31)
[2020-11-01] MEDS: INSULIN ASPART (NovoLOG) 100 UNIT/ML VIAL SQ SCH ×4 (07:31→20:51)
[2020-11-01 08:05] VITALS: RESP 18
[2020-11-01 09:59] LABS: HCT 38.3 % (39.6-50.0); HGB 12.5 g/dL (13.0-17.0); MCH 28.8 pg (27.0-32.0); MCHC 32.6 g/dL (32.0-37.0); MCV 88.2 fL (80.0-97.0); Platelet Count 118 X 10*3/uL (140-440); RBC 4.34 X 10*6/uL (4.40-5.60); RDW 16.9 % (11.5-14.5); WBC 3.06 X 10*3/uL (4.50-10.00)
[2020-11-01 10:36] LABS: African American GFR (CKD) 103.4 (60.0-200.0); Albumin 3.1 g/dL (3.80-4.90); Albumin/Globulin Ratio 1.72 (1.60-3.17); Calcium 8.4 mg/dL (8.7-10.3); Globulin 1.8 g/dL (1.6-3.3); Non-African American GFR(CKD) 89.2 (60.0-200.0); Potassium 5.1 mmol/L (3.5-5.5); Total Bilirubin 0.8 mg/dL (0.2-1.2); Total Protein 4.9 g/dL (6.2-8.2)
[2020-11-01 11:25] LABS: Basophils # (M) 0.03 X 10*3/uL (0.00-0.10); Eosinophils # (M) 0 X 10*3/uL (0.04-0.35); Lymphocytes # (M) 0.31 X 10*3/uL (0.90-5.00); Metamyelocytes % 4 % (0-0); Monocytes # (M) 0.09 X 10*3/uL (0.20-1.00); Myelocytes % 1 % (0-0); Neutrophils # (M) 2.48 X 10*3/uL (2.00-8.90); Neutrophils % (M) 81 %
[2020-11-01 11:39] LABS: Glucose,Whole Blood 314 mg/dL (75-99)
--- NOTE | 2020-11-01 13:28 | P.PN ---
Subjective Progress Note Date: 11/01/20 Principal diagnosis: Metastatic Cancer WOrsening neurological symptoms Objective - Vital Signs Vital signs: Vital Signs Temp 97.5 F L 11/01/20 07:18 Pulse 74 11/01/20 07:18 Resp 18 11/01/20 07:18 BP 103/75 11/01/20 07:18 Pulse Ox 90 L 11/01/20 07:18 Intake & Output 10/31/20 11/01/20 11/01/20 18:59 06:59 18:59 Intake Total 540 Balance 540 Intake: Oral 540 Other: Voiding Method Incontinent Incontinent # Voids 3 3 - Exam - Constitutional General appearance: cooperative - EENT Eyes: poor dentition ENT: hard of hearing - Neck Neck: normal ROM - Respiratory Respiratory: bilateral: diminished - Cardiovascular Rhythm: regular - Gastrointestinal General gastrointestinal: soft - Integumentary Integumentary: pale - Neurologic inconsistent following - Musculoskeletal Musculoskeletal: generalized weakness - Labs CBC & Chem 7: 11/01/20 06:10 11/01/20 06:10 Labs: Abnormal Lab Results - Last 24 Hours (Table) 10/31/20 10/31/20 10/31/20 Range/Units 05:51 05:51 16:50 WBC (4.50-10.00) X 10*3/uL RBC (4.40-5.60) X 10*6/uL Hgb (13.0-17.0) g/dL Hct (39.6-50.0) % RDW (11.5-14.5) % Plt Count (140-440) X 10*3/uL Plt Count Comment Metamyelocytes % (0-0) % Myelocytes % (0-0) % Lymphocytes # (Manual) (0.90-5.00) X 10*3/uL Monocytes # (Manual) (0.20-1.00) X 10*3/uL Eosinophils # (Manual) (0.04-0.35) X 10*3/uL Glucose (70-110) mg/dL POC Glucose (mg/dL) 202 H (75-99) mg/dL Calcium (8.7-10.3) mg/dL Total Protein (6.2-8.2) g/dL Albumin (3.80-4.90) g/dL Procalcitonin 0.37 H (0.02-0.09) ng/mL TSH 6.350 H (0.350-5.500) uIU/mL 10/31/20 11/01/20 11/01/20 Range/Units 20:02 06:10 06:10 WBC 3.06 L (4.50-10.00) X 10*3/uL RBC 4.34 L (4.40-5.60) X 10*6/uL Hgb 12.5 L (13.0-17.0) g/dL Hct 38.3 L (39.6-50.0) % RDW 16.9 H (11.5-14.5) % Plt Count 118 L (140-440) X 10*3/uL Plt Count Comment DECREASED A Metamyelocytes % 4 H (0-0) % Myelocytes % 1 H (0-0) % Lymphocytes # (Manual) 0.31 L (0.90-5.00) X 10*3/uL Monocytes # (Manual) 0.09 L (0.20-1.00) X 10*3/uL Eosinophils # (Manual) 0 L (0.04-0.35) X 10*3/uL Glucose 139 H (70-110) mg/dL POC Glucose (mg/dL) 239 H (75-99) mg/dL Calcium 8.4 L (8.7-10.3) mg/dL Total Protein 4.9 L (6.2-8.2) g/dL Albumin 3.10 L (3.80-4.90) g/dL Procalcitonin (0.02-0.09) ng/mL TSH (0.350-5.500) uIU/mL 11/01/20 11/01/20 Range/Units 06:48 11:36 WBC (4.50-10.00) X 10*3/uL RBC (4.40-5.60) X 10*6/uL Hgb (13.0-17.0) g/dL Hct (39.6-50.0) % RDW (11.5-14.5) % Plt Count (140-440) X 10*3/uL Plt Count Comment Metamyelocytes % (0-0) % Myelocytes % (0-0) % Lymphocytes # (Manual) (0.90-5.00) X 10*3/uL Monocytes # (Manual) (0.20-1.00) X 10*3/uL Eosinophils # (Manual) (0.04-0.35) X 10*3/uL Glucose (70-110) mg/dL POC Glucose (mg/dL) 136 H 314 H (75-99) mg/dL Calcium (8.7-10.3) mg/dL Total Protein (6.2-8.2) g/dL Albumin (3.80-4.90) g/dL Procalcitonin (0.02-0.09) ng/mL TSH (0.350-5.500) uIU/mL Microbiology - Last 24 Hours (Table) 10/31/20 14:30 Gram Stain - Preliminary Sputum Sputum Culture - Preliminary Assessment and Plan Plan: CT Scan - head: report reviewed, image reviewed MRI - head: report reviewed, image reviewed Assessment and Plan Assessment: 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 = He underwent a course of adjuvant radiation finishing on November 04, 2019. = Shortly after his treatment, he was unfortunately diagnosed with extensive small cell lung cancer of the right upper lung. = He has undergone chemoimmunotherapy with excellent response. Recently presented with with brain metastases and underwent WBRT finishing on 09/27/2020. - Recently hospitalized due to weakness/falls. - Now Re-hospitalized for the same Plan: Brain metastases: - As detailed above, the patient's metastatic disease has responded quite well to radiotherapy. One lesion along the left caudate seemed to enlarge, but this is likely based on hemorrhagic conversion as opposed to disease progression. Hydrocephalus: - The patient does appear to have hydrocephalus, however I did discuss his case with radiology. They feel that none of the lesions appear to be obstructing outflow. This raises the possibility of NPH. Although the patient is not having all of the typical symptoms of hydrocephalus, this certainly could be contributing to his gait disturbance. Neurosurgical outpatient evaluation was plan, however the [facility], and this was made for today, but patient has now presented with repeated falls and clinically worsening - If possible to be transferred for evaluation this is first recommendation, however the [facility] does present with additional barrier. - Recommend Neurosurg evaluation jordin. Continue Dexamethasone at 4mg, Plan to transfer to tertiary care for neurosurgery evaluation Physician Attest: I have completed the full history and physical and agree with above dictation, dictated as a scribe.
--- NOTE | 2020-11-01 14:05 | P.PN ---
Subjective Progress Note Date: 11/01/20 Principal diagnosis: COPD, lung mass, abnormal chest x-ray 71-year-old male, who presents to the emergency department on October 30, with weakness, and shortness of breath. Apparently the patient was unable to give history in part because he has a tracheostomy tube in place. The patient has a history of small cell lung cancer. He was initially diagnosed by my partner in January 2020. He has small cell lung cancer. It is metastatic to the brain. He apparently had been on steroids recently been completed and the day before his admission in the emergency department. He does follow-up with Dr. Abiodun Chaudhari in radiation oncology. The patient was in his room. He was not on any supplemental oxygen. Tracheostomy tube in place. His room air saturations are 97%. He was not having any respiratory distress whatsoever. He really could not give me much of the history other than to say that he was weak and a bit short of breath. In addition to lung cancer, he has a history of hypertension, hypothyroidism, lower extremity weakness, hyponatremia, history of laryngeal and glottic squamous cell cancer, with laryngectomy thyroidectomy and neck reconstruction surgery in 2019. More recently in January 2020 was diagnosed with small cell lung cancer, status post chemotherapy, and radiation therapy to the brain. He also has a history of skin cancer. White count 3.3, hemoglobin 13.7, hematocrit 39.4, and platelet count 113,000. Sodium 133, potassium 3.6, chlorides 104, CO2 25, anion gap 4, BUN and creatinine were 17 and 0.78. Chest x-ray shows patchy bilateral airspace disease which might be consistent with pneumonia. On 11/01/2020 patient seen in follow-up on medical surgical floor, he is resting in bed quietly, he is currently on room air, with pulse ox between 90-94%. He remains on antibiotics in the form of azithromycin and Rocephin for pneumonia. Seems to be breathing fairly comfortably, no significant cough or phlegm production, no hemoptysis, today's labs have been reviewed, his white blood cell count is 3.06, hemoglobin is 12.5, platelet count is still pending, electrolytes and renal profile are within normal limits. Medical oncology is following, patient has been started on Decadron 4 mg daily for brain metastasis. There is a possible transfer to a tertiary care facility with neurosurgery coverage, and this is being initiated by medical oncology. Otherwise no acute events overnight. Patient is very weak, he has been unable to ambulate, neurosurgical consultation is being recommended by medical oncology at this time Objective - Vital Signs Vital signs: Vital Signs Temp 97.5 F L 11/01/20 07:18 Pulse 74 11/01/20 07:18 Resp 18 11/01/20 07:18 BP 103/75 11/01/20 07:18 Pulse Ox 90 L 11/01/20 07:18 Intake & Output 10/31/20 11/01/20 11/01/20 18:59 06:59 18:59 Intake Total 540 Balance 540 Intake: Oral 540 Other: Voiding Method Incontinent Incontinent # Voids 3 3 - Exam GENERAL EXAM: Alert, very weak, 70-year-old white male, on room air with a pulse ox of 90-94%, comfortable in no apparent distress. HEAD: Normocephalic/atraumatic. EYES: Normal reaction of pupils, equal size. Conjunctiva pink, sclera white. NOSE: Clear with pink turbinates. THROAT: No erythema or exudates. NECK: No masses, no JVD, no thyroid enlargement, no adenopathy. Midline tracheostomy CHEST: No chest wall deformity. Symmetrical expansion. LUNGS: Equal air entry with a few bilateral crackles CVS: Regular rate and rhythm, normal S1 and S2, no gallops, no murmurs, no rubs ABDOMEN: Soft, nontender. No hepatosplenomegaly, normal bowel sounds, no guarding or rigidity. EXTREMITIES: No clubbing, no edema, no cyanosis, 2+ pulses and upper and lower extremities. MUSCULOSKELETAL: Muscle strength and tone normal. SPINE: No scoliosis or deformity SKIN: No rashes CENTRAL NERVOUS SYSTEM: Alert and oriented -3. No focal deficits, tone is normal in all 4 extremities. PSYCHIATRIC: Alert and oriented -3. Appropriate affect. Intact judgment and insight. - Labs CBC & Chem 7: 11/01/20 06:10 11/01/20 06:10 Labs: Abnormal Lab Results - Last 24 Hours (Table) 10/31/20 10/31/20 10/31/20 Range/Units 05:51 05:51 16:50 WBC (4.50-10.00) X 10*3/uL RBC (4.40-5.60) X 10*6/uL Hgb (13.0-17.0) g/dL Hct (39.6-50.0) % RDW (11.5-14.5) % Plt Count (140-440) X 10*3/uL Plt Count Comment Metamyelocytes % (0-0) % Myelocytes % (0-0) % Lymphocytes # (Manual) (0.90-5.00) X 10*3/uL Monocytes # (Manual) (0.20-1.00) X 10*3/uL Eosinophils # (Manual) (0.04-0.35) X 10*3/uL Glucose (70-110) mg/dL POC Glucose (mg/dL) 202 H (75-99) mg/dL Calcium (8.7-10.3) mg/dL Total Protein (6.2-8.2) g/dL Albumin (3.80-4.90) g/dL Procalcitonin 0.37 H (0.02-0.09) ng/mL TSH 6.350 H (0.350-5.500) uIU/mL 10/31/20 11/01/20 11/01/20 Range/Units 20:02 06:10 06:10 WBC 3.06 L (4.50-10.00) X 10*3/uL RBC 4.34 L (4.40-5.60) X 10*6/uL Hgb 12.5 L (13.0-17.0) g/dL Hct 38.3 L (39.6-50.0) % RDW 16.9 H (11.5-14.5) % Plt Count 118 L (140-440) X 10*3/uL Plt Count Comment DECREASED A Metamyelocytes % 4 H (0-0) % Myelocytes % 1 H (0-0) % Lymphocytes # (Manual) 0.31 L (0.90-5.00) X 10*3/uL Monocytes # (Manual) 0.09 L (0.20-1.00) X 10*3/uL Eosinophils # (Manual) 0 L (0.04-0.35) X 10*3/uL Glucose 139 H (70-110) mg/dL POC Glucose (mg/dL) 239 H (75-99) mg/dL Calcium 8.4 L (8.7-10.3) mg/dL Total Protein 4.9 L (6.2-8.2) g/dL Albumin 3.10 L (3.80-4.90) g/dL Procalcitonin (0.02-0.09) ng/mL TSH (0.350-5.500) uIU/mL 11/01/20 11/01/20 Range/Units 06:48 11:36 WBC (4.50-10.00) X 10*3/uL RBC (4.40-5.60) X 10*6/uL Hgb (13.0-17.0) g/dL Hct (39.6-50.0) % RDW (11.5-14.5) % Plt Count (140-440) X 10*3/uL Plt Count Comment Metamyelocytes % (0-0) % Myelocytes % (0-0) % Lymphocytes # (Manual) (0.90-5.00) X 10*3/uL Monocytes # (Manual) (0.20-1.00) X 10*3/uL Eosinophils # (Manual) (0.04-0.35) X 10*3/uL Glucose (70-110) mg/dL POC Glucose (mg/dL) 136 H 314 H (75-99) mg/dL Calcium (8.7-10.3) mg/dL Total Protein (6.2-8.2) g/dL Albumin (3.80-4.90) g/dL Procalcitonin (0.02-0.09) ng/mL TSH (0.350-5.500) uIU/mL Microbiology - Last 24 Hours (Table) 10/31/20 14:30 Gram Stain - Preliminary Sputum Sputum Culture - Preliminary Assessment and Plan Plan: Assessment: #1. Probable bilateral community-acquired pneumonia, tested negative for COVID- 19 #2. Weakness, inability to ambulate #3. History of small cell lung cancer with brain metastasis, status post chemotherapy and radiation therapy, and this was diagnosed back in January 2020 #4. 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 History of surgical hypothyroidism #6. Hyperlipidemia #7. History of hypertension #8. History of diabetes mellitus #9. 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 History of skin cancer #11. Prior history of tobacco use Plan: Continue current antibiotics His breathing seems to be stable, he remains on room air No fever or chills Medical oncology is recommending transfer to a tertiary care facility with neurosurgery coverage The patient and the stay until tomorrow we will obtain follow-up chest x-ray tomorrow We'll continue to follow I performed a history & physical examination of the patient and discussed their management with my nurse practitioner, Eugenia Dodge. I reviewed the nurse practitioner's note and agree with the documented findings and plan of care. Lung sounds are positive for diminished breath sounds. The findings and the impression was discussed with the patient. I attest to the documentation by the nurse practitioner. Time with Patient: Less than 30
[2020-11-01 16:58] LABS: Glucose,Whole Blood 239 mg/dL (75-99)
[2020-11-01 19:58] VITALS: BP 123/86; PULSE 65; TEMP 98.1
[2020-11-01 20:23] LABS: Glucose,Whole Blood 345 mg/dL (75-99)
[2020-11-01] MEDS: MULTIVITAMINS, THERA 1 EACH TAB PO SCH (20:50)
[2020-11-01] MEDS: ATORVASTATIN 40 MG TAB PO SCH (20:51)
[2020-11-01] MEDS: INSULIN DETEMIR (LEVEMIR) 100 UNIT/ML SYR SQ SCH (20:51)
--- NOTE | 2020-11-01 22:36 | P.DS ---
Providers Date of admission: 10/30/20 20:42 Attending physician: Candie Smith Consults: 10/30/20 20:42 Consult Physician Routine Consulting Provider: Elijah Colon Consult Reason/Comments: malignancy Do you want consulting provider notified?: Yes 10/30/20 20:43 Consult Physician Routine Consulting Provider: Segundo Chaudhari Consult Reason/Comments: malignancy Do you want consulting provider notified?: Yes 10/30/20 21:15 Consult Physician Routine Consulting Provider: Chrystal Woo Consult Reason/Comments: PNA Do you want consulting provider notified?: Yes 10/31/20 17:57 Consult Physician Urgent Consulting Provider: Kena Steven Consult Reason/Comments: brain mets Do you want consulting provider notified?: Yes 10/31/20 18:07 Consult Physician Routine Consulting Provider: Jaswinder Salcido Consult Reason/Comments: hydrocephalus, weakness Do you want consulting provider notified?: Yes Primary care physician: [facility] Course: Diagnoses: Inability to walk, suspected secondary to hydrocephalus and brain metastasis , patient transverse, clubbing, for neurosurgical evaluation Small cell lung cancer with brain metastases status post radiotherapy Recent history of laryngeal cancer, status post tracheostomy Possible bilateral pneumonia Diabetes mellitus Mild acute hypoxic respiratory failure. Mild thrombocytopenia Hospital course: This is a pleasant 70 years old male with multiple medical problems as above. Presents with inability to walk and generalized weakness. Please refer to oncology team note showing patient has recent history of laryngeal cancer and status post laryngectomy and tracheostomy is in place. 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 Patient is lying in bed, no significant complaint. He feels generally weak. Breathing is quiet, no coughing, no chest pain. He is hemodynamically stable and not showing only mild low platelets at 113 gait.Patient also is currently on dexamethasone 4 mg. Patient has been evaluated by oncology and nephrology services who recommended to transfer the patient to tertiary care center for neurosurgery evaluation which is not available this hospital. Patient and are agreeable to be transferred. I discussed the case with the neurosurgeon Dr. Singh and he accepts the patient Patient is stable to be transferred in guarded prognosis. Physical exam -GENERAL: The patient is alert and oriented, lethargic, not in any acute d istress. Generally weak. Inability to talk due to his tracheostomy -HEENT: Pupils are round and equally reacting to light. EOMI. No scleral icterus. No conjunctival pallor. Normocephalic, atraumatic. No pharyngeal erythema. No thyromegaly. Tracheostomy is in place CARDIOVASCULAR: S1 and S2 present. No murmurs, rubs, or gallops. PULMONARY: Chest is clear to auscultation, no wheezing or crackles. ABDOMEN: Soft, nontender, nondistended, normoactive bowel sounds. No palpable organomegaly. MUSCULOSKELETAL: No joint swelling or deformity. EXTREMITIES: No cyanosis, clubbing, or pedal edema. NEUROLOGICAL: Gross neurological examination did not reveal any focal deficits. SKIN: No rashes. no petechiae. Time spent more than 35 minutes Patient Condition at Discharge: Stable Plan - Discharge Summary Discharge Rx Participant: No New Discharge Prescriptions: No Action Levothyroxine Sodium 150 mcg PO DAILY Pantoprazole [Protonix] 40 mg PO AC-BID 14 Days #28 tablet. Acetaminophen Tab [Tylenol] 650 mg PO Q6HR PRN tab PRN Reason: Mild Pain Or Fever > 100.5 Nystatin 100,000 Unit/ml Susp [Mycostatin Oral Susp] 500,000 unit PO QID Insulin Detemir (Levemir) [Levemir] 15 unit SQ HS 30 Days #4 syr Thiamine [Vitamin B-1] 100 mg PO DAILY@1200 30 Days #30 tab Atenolol [Tenormin] 50 mg PO DAILY Aspirin 81 mg PO DAILY 30 Days #30 chew Folic Acid 1 mg PO DAILY@1200 30 Days #30 tab Atorvastatin [Lipitor] 40 mg PO HS Multivitamins, Thera [Multivitamin (formulary)] 1 tab PO HS Discharge Medication List Levothyroxine Sodium 150 mcg PO DAILY 10/11/20 [History] Acetaminophen Tab [Tylenol] 650 mg PO Q6HR PRN tab 10/13/20 [Rx] Pantoprazole [Protonix] 40 mg PO AC-BID 14 Days #28 tablet. 10/13/20 [Rx] Atenolol [Tenormin] 50 mg PO DAILY 10/23/20 [History] Nystatin 100,000 Unit/ml Susp [Mycostatin Oral Susp] 500,000 unit PO QID 10/23/20 [History] Aspirin 81 mg PO DAILY 30 Days #30 chew 10/24/20 [Rx] Folic Acid 1 mg PO DAILY@1200 30 Days #30 tab 10/24/20 [Rx] Insulin Detemir (Levemir) [Levemir] 15 unit SQ HS 30 Days #4 syr 10/24/20 [Rx] Thiamine [Vitamin B-1] 100 mg PO DAILY@1200 30 Days #30 tab 10/24/20 [Rx] Atorvastatin [Lipitor] 40 mg PO HS 10/30/20 [History] Multivitamins, Thera [Multivitamin (formulary)] 1 tab PO HS 10/30/20 [History] Follow up Appointment(s)/Referral(s): [facility] [NON-STAFF] - 1-2 Days [facility],Clinic [Primary Care Provider] - 1-2 days
--- NOTE | 2020-11-01 23:04 | P.CNNES ---
History of Present Illness Consult date: 11/01/20 Requesting physician: Chris E Sheet Reason for Consult: Brain metastasis History of Present Illness: Patient is a 70-year-old male with metastatic lung cancer came to the hospital by ambulance on 10/30/2020 at 5:08 PM for generalized weakness. Patient's was present, who provided most of the history. 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 He was diagnosed with small cell lung cancer on 02/02/2020. He underwent chemotherapy. Patient developed new onset headaches after which she was diagnosed with metastatic lung cancer to the brain on 09/12/2020. Patient received cerebral radiation therapy from 09/14/2020 to 09/27/2020. His dose of corticosteroids was rapidly tapered off. On 09/29/2020 he started falling. He fell multiple times, about 8 times after which he was admitted to the hospital on 10/11/2020. Neurosurgical consultation was recommended, and transfer to higher facility was considered, but patient was actually discharged on 10/13/2020, as it was decided for patient to be seen by neurosurgeon as outpatient. Patient was readmitted on 10/23/2020 with mental status change and weakness, and was felt to be related to metabolic encephalopathy from uncontrolled diabetes. Patient now again admitted on 10/30/2020 because of severe weakness, inability to get up, tiredness. It was felt that his weakness became worse because his steroids were discontinued. Patient now has been restarted on Decadron, and his weakness has remarkably improved. Patient's states that on Friday, 2 days ago, he was walking with a walker, but yesterday on the day of admission he could not lift his legs up because felt so weak. Patient still has not been seen by neurosurgeon, and the family is adamant for patient to be seen by a neurosurgeon. Patient's primary physician has tried for patient to be seen through [facility], but does not have an appointment until 11/15/2020. CT head showed metastatic disease showing a similar appearance to prior exam. I reviewed patient's current and previous films. Patient has history of smoking 1 pack per day for 30 years, quit 30 years ago. 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 Review of Systems As above in detail. Patient denies headache any problem with the vision. He has hypophonia because of laryngectomy. Denies chest pain, abdominal pain. Denies nausea vomiting diarrhea. Past Medical History Past Medical History: Cancer, Hypertension, Thyroid Disorder Additional Past Medical History / Comment(s): Pt recently admitted to [facility] with recurrent falls/R leg weakness 2ndary to brain stem lesions/multiple brain lesions, hyponatremia. 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 Past Anesthesia/Blood Transfusion Reactions: No Reported Reaction Past Psychological History: No Psychological Hx Reported Additional Psychological History / Comment(s): CLAUSTROPHOBIA. Pt resides with his spouse. He has a borrowed walker which is too wide for him and a cane but does not use them. He no longer drives, his spouse takes him to app. Pt is a and receiving home care, PT/OT and nurse thru [facility]. Pt has a cane and a walker. Smoking Status: Former smoker Past Alcohol Use History: Daily Additional Past Alcohol Use History / Comment(s): Pt started smoking in 1959 and quit in 1979. He was a heavy drinker-6 beers/day but recently quit all together. Past Drug Use History: None Reported - Past Family History Father Family Medical History: Myocardial Infarction (LA) Additional Family Medical History / Comment(s): Father of a LA at the age of 58yrs. Mother Family Medical History: CVA/TIA Additional Family Medical History / Comment(s): Mother is alive and is 96yrs old. Medications and Allergies Home Medications Medication Instructions Recorded Confirmed Type Levothyroxine Sodium 150 mcg PO DAILY 10/11/20 10/30/20 History Acetaminophen Tab [Tylenol] 650 mg PO Q6HR PRN tab 10/13/20 10/30/20 Rx Pantoprazole [Protonix] 40 mg PO AC-BID 14 Days #28 10/13/20 10/30/20 Rx tablet. Atenolol [Tenormin] 50 mg PO DAILY 10/23/20 10/30/20 History Nystatin 100,000 Unit/ml Susp 500,000 unit PO QID 10/23/20 10/30/20 History [Mycostatin Oral Susp] Aspirin 81 mg PO DAILY 30 Days #30 chew 10/24/20 10/30/20 Rx Folic Acid 1 mg PO DAILY@1200 30 Days #30 tab 10/24/20 10/30/20 Rx Insulin Detemir (Levemir) [Levemir] 15 unit SQ HS 30 Days #4 syr 10/24/20 10/30/20 Rx Thiamine [Vitamin B-1] 100 mg PO DAILY@1200 30 Days #30 10/24/20 10/30/20 Rx tab Atorvastatin [Lipitor] 40 mg PO HS 10/30/20 10/30/20 History Multivitamins, Thera [Multivitamin 1 tab PO HS 10/30/20 10/30/20 History (formulary)] Allergies Allergy/AdvReac Type Severity Reaction Status Date / Time No Known Allergies Allergy Verified 10/30/20 18:14 Physical Examination - Vital Signs Vital Signs: Vital Signs Temp Pulse Resp BP Pulse Ox 11/01/20 07:18 97.5 F L 74 18 103/75 90 L 11/01/20 02:13 98.5 F 71 15 111/72 94 L 10/31/20 19:12 98.7 F 75 16 115/72 92 L 10/31/20 14:00 98.1 F 73 17 112/76 93 L Intake and Output 10/31/20 11/01/20 11/01/20 22:59 06:59 14:59 Intake Total 540 Balance 540 Intake: Oral 540 Other: Voiding Method Incontinent Incontinent # Voids 1 3 Patient is an elderly male, very pleasant, in no acute distress. Patient is alert awake oriented to time place and person. Speech is hypophonic due to laryngectomy and language functions are normal. Attention, concentration and fund of knowledge is adequate. Patient can name and repeat very well. On cranial examination, pupils are round and reacting to light, visual anthony are full on confrontation, extraocular muscles are intact with no nystagmus. Face is symmetric, tongue protrudes to the midline. Palatal elevation and sensation normal, hearing and shoulder shrug normal, facial sensation normal. Shoulder shrug normal. On muscle strength testing, there is no pronator drift and the strength is normal in arms and legs distally and proximally. Deep tendon reflexes are 1 in the upper and lower limbs and plantars are downgoing bilaterally. Sensory to touch is equal with no neglect. Cerebellar function showed no ataxia for [id number] testing. No dysdiadochokinesia. Tone and bulk of muscles normal. Gait deferred. On general examination, there is no carotid bruit or murmur, S1-S2 audible. A bdomen is soft nontender. Chest is clear. Peripheral pulses are present. No edema. Results - Laboratory Findings CBC and BMP: 11/01/20 06:10 11/01/20 06:10 Abnormal Lab Findings: Abnormal Labs 10/30/20 10/30/20 10/30/20 18:15 18:15 18:15 WBC RBC Hgb Hct 38.9 L RDW 16.2 H Plt Count 122 L Plt Count Comment Metamyelocytes % Myelocytes % Lymphocytes # 0.5 L Lymphocytes # (Manual) Monocytes # (Manual) Eosinophils # (Manual) APTT 19.3 L Sodium 135 L Glucose 157 H POC Glucose (mg/dL) Calcium Total Protein 5.3 L Albumin 2.9 L Procalcitonin TSH Urine Protein Urine Mucus 10/30/20 10/31/20 10/31/20 21:34 00:16 05:51 WBC 3.3 L RBC Hgb Hct RDW 16.4 H Plt Count 113 L Plt Count Comment Metamyelocytes % Myelocytes % Lymphocytes # 0.7 L Lymphocytes # (Manual) Monocytes # (Manual) Eosinophils # (Manual) APTT Sodium Glucose POC Glucose (mg/dL) 124 H 148 H Calcium Total Protein Albumin Procalcitonin TSH Urine Protein Urine Mucus 10/31/20 10/31/20 10/31/20 05:51 05:51 05:51 WBC RBC Hgb Hct RDW Plt Count Plt Count Comment Metamyelocytes % Myelocytes % Lymphocytes # Lymphocytes # (Manual) Monocytes # (Manual) Eosinophils # (Manual) APTT Sodium 133 L Glucose 103 H POC Glucose (mg/dL) Calcium Total Protein Albumin Procalcitonin 0.37 H TSH 6.350 H Urine Protein Urine Mucus 10/31/20 10/31/20 10/31/20 09:00 11:41 16:50 WBC RBC Hgb Hct RDW Plt Count Plt Count Comment Metamyelocytes % Myelocytes % Lymphocytes # Lymphocytes # (Manual) Monocytes # (Manual) Eosinophils # (Manual) APTT Sodium Glucose POC Glucose (mg/dL) 128 H 202 H Calcium Total Protein Albumin Procalcitonin TSH Urine Protein 1+ H Urine Mucus Occasional H 10/31/20 11/01/20 11/01/20 20:02 06:10 06:10 WBC 3.06 L RBC 4.34 L Hgb 12.5 L Hct 38.3 L RDW 16.9 H Plt Count 118 L Plt Count Comment DECREASED A Metamyelocytes % 4 H Myelocytes % 1 H Lymphocytes # Lymphocytes # (Manual) 0.31 L Monocytes # (Manual) 0.09 L Eosinophils # (Manual) 0 L APTT Sodium Glucose 139 H POC Glucose (mg/dL) 239 H Calcium 8.4 L Total Protein 4.9 L Albumin 3.10 L Procalcitonin TSH Urine Protein Urine Mucus 11/01/20 11/01/20 06:48 11:36 WBC RBC Hgb Hct RDW Plt Count Plt Count Comment Metamyelocytes % Myelocytes % Lymphocytes # Lymphocytes # (Manual) Monocytes # (Manual) Eosinophils # (Manual) APTT Sodium Glucose POC Glucose (mg/dL) 136 H 314 H Calcium Total Protein Albumin Procalcitonin TSH Urine Protein Urine Mucus Assessment and Plan Assessment: * Metastatic lung cancer. Patient has multiple hemorrhagic cerebral metastasis. In fact metastatic disease has much improved (from cranial irradiation) on the current computed tomography scan of head, as compared to the previous computed tomography scan and MRI of the brain from 10/11/2020. Patient's generalized weakness has also improved since Decadron has been resumed. It appears when steroids are tapered off, the vasogenic edema gets worse producing worsening of symptoms. * Metastatic lung cancer * History of laryngeal cancer, in remission * History of laryngectomy due to above. * X tobacco use Plan: * Patient examination is stable at this time since Decadron has been resumed. His agrees that his weakness has remarkably improved. Patient and his are adamant for him to be seen by a neurosurgeon. I do not believe he is a neurosurgical candidate at all based upon the extent of cerebral metastasis. The hydrocephalus is stable. For patient and his 's satisfaction, neurologically okay for patient to be transferred to [facility] for neurosurgical consultation. * Consider starting Keppra for seizure prophylaxis. * Discussed with patient's primary physician Dr. Nieto and residential case manager.
== END 2020-11-01 22:42 | disposition short-term general hospital (02) | DRG 54 ==
LOC: EC 17:08 → 4SSUR 20:42
PROVIDERS: ADMIT Hospitalist; ATTEND Hospitalist
DX: C79.31 Secondary malignant neoplasm of brain (principal); J96.01 Acute respiratory failure with hypoxia; J18.9 Pneumonia, unspecified organism; G93.41 Metabolic encephalopathy; C34.90 Malignant neoplasm of unspecified part of unspecified bronchus or lung; E87.2 Acidosis; J44.0 Chronic obstructive pulmonary disease with (acute) lower respiratory infection; E22.2 Syndrome of inappropriate secretion of antidiuretic hormone; G91.9 Hydrocephalus, unspecified; E11.65 Type 2 diabetes mellitus with hyperglycemia; I10 Essential (primary) hypertension; E89.0 Postprocedural hypothyroidism; Z85.819 Personal history of malignant neoplasm of unspecified site of lip, oral cavity, and pharynx; Z87.891 Personal history of nicotine dependence; Z93.0 Tracheostomy status; Z85.118 Personal history of other malignant neoplasm of bronchus and lung; F40.240 Claustrophobia; R29.6 Repeated falls; Z82.49 Family history of ischemic heart disease and other diseases of the circulatory system; D69.6 Thrombocytopenia, unspecified; Z20.822 Contact with and (suspected) exposure to COVID-19; Z92.3 Personal history of irradiation; Z92.21 Personal history of antineoplastic chemotherapy; Z85.828 Personal history of other malignant neoplasm of skin; Z79.899 Other long term (current) drug therapy; Z79.82 Long term (current) use of aspirin; Z79.4 Long term (current) use of insulin; E78.5 Hyperlipidemia, unspecified; Z77.098 Contact with and (suspected) exposure to other hazardous, chiefly nonmedicinal, chemicals; Z79.890 Hormone replacement therapy; Z85.21 Personal history of malignant neoplasm of larynx; Z85.841 Personal history of malignant neoplasm of brain
CPT/HCPCS: 36415; 70450; 71046; 80048; 80053; 81001; 82533; 83605; 83735; 84145; 84439; 84443; 84484; 85025; 85610; 85730; 87070; 87205; 87635; 93005; 99285

== ENCOUNTER 2020-11-28 16:14 | Emergency (ER) | payer OTHER, MEDICARE ==
[2020-11-28 16:35] VITALS: TEMP 97.9
[2020-11-28] MEDS ORDERED: ONDANSETRON 4 MG/2 ML VIAL IVP STA (17:30)
--- NOTE | 2020-11-28 17:34 | ED ---
Weakness HPI - General Chief complaint: Weakness Stated complaint: Abd Pain Time Seen by Provider: 11/28/20 16:49 Source: patient, EMS, RN notes reviewed Mode of arrival: EMS Limitations: no limitations - History of Present Illness Initial comments: Patient is a 70-year-old male that presents to emergency department complaining of weakness. Patient's and son are with him in the exam room. notes the patient has not been eating or drinking as much as usual and she is worried about possible dehydration. She does note that 3 weeks ago he had a shunt placed. She did note that she does have some ecchymosis to his abdomen. Patient did not appear to be any distress or pain while laying in bed during exam and review. He did have a tracheostomy that was in place with no signs or symptoms of infection. Patient did note that he was mildly nauseous causing him to not eat very much. He denied any other complaints or issues. He denied any chest pain shortness of breath headache diarrhea constipation fever fatigue chills. Patient does have a history of metastatic small cell lung cancer and larynx cancer. - Related Data Home Medications Medication Instructions Recorded Confirmed Levothyroxine Sodium 150 mcg PO DAILY 10/11/20 11/28/20 Atenolol [Tenormin] 50 mg PO DAILY 10/23/20 11/28/20 Nystatin 100,000 Unit/ml Susp 500,000 unit PO QID 10/23/20 11/28/20 [Mycostatin Oral Susp] Atorvastatin [Lipitor] 40 mg PO HS 10/30/20 11/28/20 Multivitamins, Thera [Multivitamin 1 tab PO HS 10/30/20 11/28/20 (formulary)] Dexamethasone [Decadron] 8 mg PO DIRECTED 11/28/20 11/28/20 Insulin Detemir (Levemir) [Levemir] 15 unit SQ BID 11/28/20 11/28/20 Previous Rx's Medication Instructions Recorded Acetaminophen Tab [Tylenol] 650 mg PO Q6HR PRN tab 10/13/20 Pantoprazole [Protonix] 40 mg PO AC-BID 14 Days #28 10/13/20 tablet. Aspirin 81 mg PO DAILY 30 Days #30 chew 10/24/20 Folic Acid 1 mg PO DAILY@1200 30 Days #30 tab 10/24/20 Thiamine [Vitamin B-1] 100 mg PO DAILY@1200 30 Days #30 10/24/20 tab Allergies Allergy/AdvReac Type Severity Reaction Status Date / Time No Known Allergies Allergy Verified 11/28/20 18:23 Review of Systems ROS Statement: Those systems with pertinent positive or pertinent negative responses have been documented in the HPI. ROS Other: All systems not noted in ROS Statement are negative. Past Medical History Past Medical History: Cancer, Hypertension, Thyroid Disorder Additional Past Medical History / Comment(s): Pt recently admitted to [facility] with recurrent falls/R leg weakness 2ndary to brain stem lesions/multiple brain lesions, hyponatremia. 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 Past Anesthesia/Blood Transfusion Reactions: No Reported Reaction Past Psychological History: No Psychological Hx Reported Smoking Status: Former smoker Past Alcohol Use History: None Reported Past Drug Use History: None Reported - Past Family History Father Family Medical History: Myocardial Infarction (CA) Additional Family Medical History / Comment(s): Father of a CA at the age of 58yrs. Mother Family Medical History: CVA/TIA Additional Family Medical History / Comment(s): Mother is alive and is 96yrs old. General Exam Limitations: no limitations General appearance: alert, in no apparent distress Head exam: Present: atraumatic, normocephalic, normal inspection Eye exam: Present: normal appearance, PERRL, EOMI. Absent: scleral icterus, conjunctival injection, periorbital swelling Neck exam: Present: normal inspection Respiratory exam: Present: normal lung sounds bilaterally, other (Tracheostomy in place with no signs or symptoms of infection.). Absent: respiratory distress, wheezes, rales, rhonchi, stridor Cardiovascular Exam: Present: regular rate, normal rhythm, normal heart sounds. Absent: systolic murmur, diastolic murmur, rubs, gallop, clicks GI/Abdominal exam: Present: soft, normal bowel sounds, other (Ecchymosis spreading vertically across the abdomen, most likely due to shunt placement). Absent: distended, tenderness, guarding, rebound, rigid Extremities exam: Present: normal inspection, full ROM, normal capillary refill. Absent: tenderness, pedal edema, joint swelling, calf tenderness Neurological exam: Present: alert, oriented X3 Psychiatric exam: Present: normal affect, normal mood Skin exam: Present: warm, dry, intact, normal color. Absent: rash Course Vital Signs 11/28/20 11/28/20 16:24 18:54 Temperature 97.9 F Pulse Rate 72 75 Respiratory 18 16 Rate Blood Pressure 118/83 98/52 O2 Sat by Pulse 97 95 Oximetry EKG Findings - EKG Comments: EKG Findings:: Ventricular rate 71 bpm, TN interval 174 ms, QRS duration 100 ms, QTC 458 ms, PRT axis 29/44/87. Normal sinus rhythm, normal ECG. Medical Decision Making - Medical Decision Making 70-year-old male presenting for weakness. EKG, cardiac cath lab manager, chest x-ray, labs, 4 mg of Zofran ordered. Ultrasound ordered of gallbladder due to elevated liver enzymes. Patient declined CT at this time and wishes to go home has follow-up appointment with oncologist tomorrow. Patient understands risks versus benefits of staying and still wishes to go home. Case discussed with Dr. Fry, patient can discharge home. - Lab Data Result diagrams: 11/28/20 17:53 11/28/20 17:53 Lab Results 11/28/20 11/28/20 11/28/20 Range/Units 17:53 17:53 17:53 WBC 5.6 (3.8-10.6) k/uL RBC 4.31 (4.30-5.90) m/uL Hgb 13.1 (13.0-17.5) gm/dL Hct 40.3 (39.0-53.0) % MCV 93.3 D (80.0-100.0) fL MCH 30.3 (25.0-35.0) pg MCHC 32.5 (31.0-37.0) g/dL RDW 18.8 H (11.5-15.5) % Plt Count 141 L (150-450) k/uL MPV 7.0 Neutrophils % 79 % Lymphocytes % 16 % Monocytes % 4 % Eosinophils % 1 % Basophils % 0 % Neutrophils # 4.4 (1.3-7.7) k/uL Lymphocytes # 0.9 L (1.0-4.8) k/uL Monocytes # 0.2 (0-1.0) k/uL Eosinophils # 0.0 (0-0.7) k/uL Basophils # 0.0 (0-0.2) k/uL Anisocytosis Slight Sodium 135 L (137-145) mmol/L Potassium 4.0 (3.5-5.1) mmol/L Chloride 106 (98-107) mmol/L Carbon Dioxide 22 (22-30) mmol/L Anion Gap 7 mmol/L BUN 13 (9-20) mg/dL Creatinine 0.51 L (0.66-1.25) mg/dL Est GFR (CKD-EPI)AfAm >90 (>60 ml/min/1.73 sqM) Est GFR (CKD-EPI)NonAf >90 (>60 ml/min/1.73 sqM) Glucose 131 H (74-99) mg/dL Plasma Lactic Acid Curtis 1.9 (0.7-2.0) mmol/L Calcium 8.8 (8.4-10.2) mg/dL Magnesium 2.2 (1.6-2.3) mg/dL Total Bilirubin 0.9 (0.2-1.3) mg/dL AST 115 H (17-59) U/L ALT 232 H (4-49) U/L Alkaline Phosphatase 177 H (38-126) U/L Troponin I (0.000-0.034) ng/mL Total Protein 5.4 L (6.3-8.2) g/dL Albumin 3.1 L (3.5-5.0) g/dL Urine Color Urine Appearance (Clear) Urine pH (5.0-8.0) Ur Specific Java (1.001-1.035) Urine Protein (Negative) Urine Glucose (UA) (Negative) Urine Ketones (Negative) Urine Blood (Negative) Urine Nitrite (Negative) Urine Bilirubin (Negative) Urine Urobilinogen (<2.0) mg/dL Ur Leukocyte Esterase (Negative) 11/28/20 11/28/20 Range/Units 17:53 18:54 WBC (3.8-10.6) k/uL RBC (4.30-5.90) m/uL Hgb (13.0-17.5) gm/dL Hct (39.0-53.0) % MCV (80.0-100.0) fL MCH (25.0-35.0) pg MCHC (31.0-37.0) g/dL RDW (11.5-15.5) % Plt Count (150-450) k/uL MPV Neutrophils % % Lymphocytes % % Monocytes % % Eosinophils % % Basophils % % Neutrophils # (1.3-7.7) k/uL Lymphocytes # (1.0-4.8) k/uL Monocytes # (0-1.0) k/uL Eosinophils # (0-0.7) k/uL Basophils # (0-0.2) k/uL Anisocytosis Sodium (137-145) mmol/L Potassium (3.5-5.1) mmol/L Chloride (98-107) mmol/L Carbon Dioxide (22-30) mmol/L Anion Gap mmol/L BUN (9-20) mg/dL Creatinine (0.66-1.25) mg/dL Est GFR (CKD-EPI)AfAm (>60 ml/min/1.73 sqM) Est GFR (CKD-EPI)NonAf (>60 ml/min/1.73 sqM) Glucose (74-99) mg/dL Plasma Lactic Acid Curtis (0.7-2.0) mmol/L Calcium (8.4-10.2) mg/dL Magnesium (1.6-2.3) mg/dL Total Bilirubin (0.2-1.3) mg/dL AST (17-59) U/L ALT (4-49) U/L Alkaline Phosphatase (38-126) U/L Troponin I 0.023 (0.000-0.034) ng/mL Total Protein (6.3-8.2) g/dL Albumin (3.5-5.0) g/dL Urine Color Yellow Urine Appearance Clear (Clear) Urine pH 6.5 (5.0-8.0) Ur Specific Java 1.016 (1.001-1.035) Urine Protein Trace H (Negative) Urine Glucose (UA) Negative (Negative) Urine Ketones Negative (Negative) Urine Blood Negative (Negative) Urine Nitrite Negative (Negative) Urine Bilirubin Negative (Negative) Urine Urobilinogen <2.0 (<2.0) mg/dL Ur Leukocyte Esterase Negative (Negative) - EKG Data -: EKG Interpreted by Me EKG shows normal: sinus rhythm Rate: normal EKG Comments: Ventricular rate 71 bpm, TN interval 174 ms, QRS duration 100 ms, QTC 458 ms, PRT axis 29/44/87. Normal sinus rhythm, normal ECG. - Radiology Data Radiology results: report reviewed, image reviewed Chest x-ray: Mild cardiomegaly and chronic changes without acute pulmonary process. Ultrasound gallbladder: Hepatomegaly with markedly heterogeneous hyperechoic appearance could reflect diffuse fatty infiltration and/or underlying hepatocellular disease. Cannot exclude underlying mass is. Consider further investigation with contrast enhanced CT. No acute findings evident. Disposition Clinical Impression: Dehydration, Small cell lung cancer, Brain metastasis, Lower extremity weakness, Weakness Disposition: HOME SELF-CARE Condition: Stable Instructions (If sedation given, give patient instructions): Weakness (ED) Additional Instructions: Please return to the Emergency Department if symptoms worsen or any other concerns. Follow-up with oncologist mother specialist as planned. Continue at home medications as prescribed. Continue to increase oral fluids and oral intake. Is patient prescribed a controlled substance at d/c from ED?: No Referrals: [facility],Clinic [Primary Care Provider] - 1-2 days Time of Disposition: 21:04
--- NOTE | 2020-11-28 17:42 | XR ---
EXAMINATION TYPE: XR chest 2V DATE OF EXAM: 11/28/2020 COMPARISON: Chest x-ray October 30, 2020. CT chest September 01, 2020 HISTORY: Weakness. TECHNIQUE: Frontal and lateral views of the chest are obtained. FINDINGS: Background chronic emphysematous and pulmonary fibrotic change redemonstrated. There is no new suspicious focal air space opacity, pleural effusion, or pneumothorax seen. The cardiac silhouet te size is stable and mildly enlarged. Catheter overlying right thorax probably less well seen on lat eral view. Degenerative spurring of the spine. Degenerative change bilateral shoulders. IMPRESSION: Mild cardiomegaly and chronic changes without acute pulmonary process.
[2020-11-28 18:04] LABS: Anisocytosis Slight; Basophils % (A) 0 %; Eosinophils % (A) 1 %; HCT 40.3 % (39.0-53.0); HGB 13.1 gm/dL (13.0-17.5); Lymphocytes # (A) 0.9 k/uL (1.0-4.8); Lymphocytes % (A) 16 %; MCH 30.3 pg (25.0-35.0); MCHC 32.5 g/dL (31.0-37.0); Monocytes # (A) 0.2 k/uL (0-1.0); Monocytes % (A) 4 %; Neutrophils # (A) 4.4 k/uL (1.3-7.7); Neutrophils % (A) 79 %; Platelet Count 141 k/uL (150-450); RBC 4.31 m/uL (4.30-5.90); RDW 18.8 % (11.5-15.5); WBC 5.6 k/uL (3.8-10.6)
[2020-11-28 18:05] LABS: MCV 93.3 fL (80.0-100.0)
[2020-11-28 18:14] LABS: ALT 232 U/L (4-49); AST 115 U/L (17-59); African American GFR (CKD) >90 (>60 ml/min/1.73 sqM); Albumin 3.1 g/dL (3.5-5.0); Alkaline Phosphatase 177 U/L (38-126); Anion Gap 7 mmol/L; Blood Urea Nitrogen 13 mg/dL (9-20); Calcium 8.8 mg/dL (8.4-10.2); Carbon Dioxide 22 mmol/L (22-30); Chloride 106 mmol/L (98-107); Glucose 131 mg/dL (74-99); Magnesium 2.2 mg/dL (1.6-2.3); Non-African American GFR(CKD) >90 (>60 ml/min/1.73 sqM); Sodium 135 mmol/L (137-145); Total Bilirubin 0.9 mg/dL (0.2-1.3); Total Protein 5.4 g/dL (6.3-8.2)
[2020-11-28 19:06] LABS: Appearance,Urine Clear (Clear); Bilirubin,Urine Negative (Negative); Blood,Urine Negative (Negative); Color,Urine Yellow; Glucose,Urine (UA) Negative (Negative); Ketones,Urine Negative (Negative); Leukocyte Esterase,Urine Negative (Negative); Nitrite,Urine Negative (Negative); PH, Urine 6.5 (5.0-8.0); Protein,Urine Trace (Negative); Specific Gravity,Urine 1.016 (1.001-1.035); Urobilinogen,Urine <2.0 mg/dL (<2.0)
--- NOTE | 2020-11-28 20:46 | US ---
EXAMINATION TYPE: US gallbladder DATE OF EXAM: 11/28/2020 COMPARISON: NONE CLINICAL HISTORY: ab pain. Abdominal pain. Hx brain cancer. EXAM MEASUREMENTS: Liver Length: 21.16 cm Gallbladder Wall: 0.25 cm CBD: Not seen. Right Kidney: 11.3 x 4.7 x 5.0 cm Pancreas: Appears heterogeneous. Slightly limited due to gas. Liver: Appears very heterogeneous. Appears enlarged. -Complex area seen within the left lobe: 2.1 x 2.6 x 3.6 cm. -Anechoic area seen within the left lobe: 1.2 x 1.6 x 1.0 cm. -Possible complex area anterior to the left lobe of the liver, difficult to measure (Approximately 9. 4 cm in transverse). Gallbladder: Appears anechoic. Fold seen. Evidence for sonographic Day's sign: No CBD: Not seen. Right Kidney: Anechoic area seen medially: 3.9 x 3.3 x 2.8 cm. -Anechoic area seen, appears to be lateral to right kidney versus possibly within right lobe of liver . Area measures: 3.5 x 3.1 x 3.5 cm. Visualized portion of pancreas slightly heterogeneous without mass or ductal dilatation. Visualized l iver markedly heterogeneously hyperechoic. Evaluation for focal masses suboptimal due to the heteroge neity. Vague hypoechoic areas marked by the technologist. Cannot exclude underlying masses. No suspic ious ductal dilatation. Gallbladder seen without shadowing mobile gallstones. Limited images right ki dney show no hydronephrosis. There is increased cortical echogenicity with scattered thin-walled cyst s. Findings consistent with product of chronic medical renal disease. IMPRESSION: Hepatomegaly with markedly heterogeneous hyperechoic appearance could reflect diffuse fat ty infiltration and/or underlying hepatocellular disease. Cannot exclude underlying masses. Consider further investigation with contrast-enhanced CT. No acute findings are evident.
[2020-11-28 21:45] VITALS: BP 98/61; PULSE 78; RESP 20
== END 2020-11-28 21:45 | disposition home or self-care (01) ==
LOC: EC 16:14
DX: C79.31 Secondary malignant neoplasm of brain (principal); C34.90 Malignant neoplasm of unspecified part of unspecified bronchus or lung; E86.0 Dehydration; I10 Essential (primary) hypertension; Z79.82 Long term (current) use of aspirin; Z79.52 Long term (current) use of systemic steroids; Z85.21 Personal history of malignant neoplasm of larynx; Z85.828 Personal history of other malignant neoplasm of skin; Z85.841 Personal history of malignant neoplasm of brain; Z87.891 Personal history of nicotine dependence
CPT/HCPCS: 36415; 71046; 76705; 80053; 81003; 83605; 83735; 84484; 85025; 93005; 99285